=== PATIENT | male | born 1995 | race Caucasian/White ===

== ENCOUNTER 2019-11-14 14:59 | Inpatient (IN) | payer OTHER ==
[2019-11-14 15:40] VITALS: BMI 22.4
--- NOTE | 2019-11-14 16:52 | HP ---
COWS - Scale Resting Pulse: 0= [place] 80 or Below Sweatin= Chills/Flushing Restless Observation: 1= Difficult to Sit Still Pupil Size: 0= Normal to Room Light Bone or Joint Aches: 1= Mild Discomfort Runny Nose/ Eye Tearin= Nasal Congestion GI Upset > 30mins: 3= Vomiting/Diarrhea Tremor Observation: 1= Tremor Maud, Not Seen Yawning Observation: 1= 1-2x During Session Anxiety or Irritability: 2=Irritable/Anxious Goose Flesh Skin: 3=Piloerection COWS Score: 14 CIWA Score - Admission Criteria OASAS Guidelines: Admission for Medically Managed Detox: Requires at least one of the followin. CIWA greater than 12 2. Seizures within the past 24 hours 3. Delirium tremens within the past 24 hours 4. Hallucinations within the past 24 hours 5. Acute intervention needed for co occurring medical disorder 6. Acute intervention needed for co occurring psychiatric disorder 7. Severe withdrawal that cannot be handled at a lower level of care (continued vomiting, continued diarrhea, abnormal vital signs) requiring intravenous medication and/or fluids 8. Admitting History and Physical - Admission Chief Complaint: Withdrawal symptoms History Source: Patient Limitations to Obtaining History: No Limitations - Smoking History Smoking history: Current every day smoker Have you smoked in the past 12 months: Yes Aproximately how many cigarettes per day: 20 - Alcohol/Substance Use Hx Alcohol Use: No History of Substance Use: reports: Cocaine, Heroin - Social History Usual Living Arrangement: Yes: With Significant Other Do you think of yourself as: Straight/Heterosexual ADL: Independent Occupation: Currently unemployed. History of Recent Travel: No Admission [facility] Chief Complaint: Withdrawal symptoms Allergies/Adverse Reactions: Allergies Allergy/AdvReac Type Severity Reaction Status Date / Time No Known Allergies Allergy Verified 11/14/19 15:37 History of Present Illness: 24 y.o. with an extensive history of heroin and cocaine dependence is here seeking detox services. He reported he last completed detox at [facility] 1 year ago. Longest period period of illicit drug abstinence has been 2 years. Client reports he relapsed 1 year ago. Exam Limitations: No Limitations - Ebola screening Have you traveled outside of the country in the last 21 days: No Have you had contact with anyone from an Ebola affected area: No Do you have a fever: No - Review of Systems Constitutional: Changes in sleep, Unintentional Wgt. Loss EENT: reports: Tearing Respiratory: reports: No Symptoms reported Cardiac: reports: No Symptoms Reported GI: reports: Diarrhea, Nausea, Abdominal cramping : reports: No Symptoms Reported Musculoskeletal: reports: No Symptoms Reported Integumentary: reports: Bruising Neuro: reports: No Symptoms reported Endocrine: reports: No Symptoms Reported Hematology: reports: No Symptoms Reported Psychiatric: reports: Orientated x3, other (H/o PTSD) Other Systems: Reviewed and Negative Patient History - Patient Medical History Hx Anemia: No Hx Asthma: No Hx Chronic Obstructive Pulmonary Disease (COPD): No Hx Cancer: No Hx Cardiac Disorders: No Hx Congestive Heart Failure: No Hx Hypertension: No Hx Hypercholesterolemia: No Hx Pacemaker: No HX Cerebrovascular Accident: No Hx Seizures: No Hx Dementia: No Hx Diabetes: No Hx Gastrointestinal Disorders: No Hx Liver Disease: Yes (HCV (UNTREATED)) Hx Genitourinary Disorders: No Hx Sexually Transmitted Disorders: Yes (Chlamydia (treated)) Hx Renal Disease (ESRD): No Hx Thyroid Disease: No Hx Human Immunodeficiency Virus (HIV): No Hx Hepatitis C: Yes (NO [place] REQUIRED ) Hx Depression: No Hx Suicide Attempt: No Hx Bipolar Disorder: No Hx Schizophrenia: No Other Medical History: PTSD - Patient Surgical History Past Surgical History: Yes Hx Orthopedic Surgery: Yes (RIGHT ANKLE SX 05/2019) Anesthesia Reaction: No - PPD History Previous Implant?: Yes Documented Results: Negative w/o proof PPD to be Administered?: Yes - Reproductive History Patient is a Female of Child Bearing Age (11 -55 yrs old): No - Smoking Cessation Smoking history: Current every day smoker Have you smoked in the past 12 months: Yes Aproximately how many cigarettes per day: 20 Initiated information on smoking cessation: Yes 'Breaking Loose' booklet given: 11/14/19 - Substance & Tx. History Hx Alcohol Use: No Hx Substance Use: Yes Substance Use Type: Cocaine, Heroin Hx Substance Use Treatment: Yes ([facility] 1 YEAR AGO) - Substances abused Heroin Substance route: Injection Frequency: Daily Amount used: 6 BAGS Age of first use: 15 Date of last use: 11/13/19 Cocaine Substance route: Inhalation Frequency: Daily Amount used: $200 Age of first use: 15 Date of last use: 11/13/19 Admission Physical Exam [facility] - Vital Signs Vital Signs: Vital Signs - 24 hr 11/14/19 15:34 Temperature 97.3 F L Pulse Rate 58 L Respiratory 18 Rate Blood Pressure 125/69 - Physical General Appearance: Yes: Sweating, Anxious HEENTM: Yes: Hearing grossly Normal, Normocephalic, Normal Voice Respiratory: Yes: Chest Non-Tender, Lungs Clear, Normal Breath Sounds, No Respiratory Distress, No Accessory Muscle Use Neck: Yes: Within Normal Limits Breast: Yes: Breast Exam Deferred Cardiology: Yes: Regular Rhythm Abdominal: Yes: Non Tender, Flat Genitourinary: Yes: Other (No complaints reported.) Back: Yes: Normal Inspection Musculoskeletal: Yes: full range of Motion, Gait Steady, Pelvis Stable Extremities: Yes: Normal Capillary Refill, Normal Inspection, Non-Tender Neurological: Yes: Alert, Normal Mood/Affect, Normal Response Integumentary: Yes: Normal Color, Dry, Warm, Track Varma Lymphatic: Yes: Within Normal Limits - Diagnostic (1) Opioid dependence, uncomplicated Current Visit: Yes Status: Chronic (2) IVDU (intravenous drug user) Current Visit: Yes Status: Chronic (3) Nicotine dependence Current Visit: Yes Status: Chronic [facility] Level of Care: Medically Managed Detox Regimen/Protocol: Methadone Breathalyzer - Breathalyzer Breathalyzer: 0 Inpatient Rehab Admission - Rehab Decision to Admit Inpatient rehab admission?: No
[2019-11-14] MEDS ORDERED: MAGNESIUM CITRATE 300 ML BOTTLE PO PRN (16:58)
[2019-11-14] MEDS ORDERED: MENTHOL/PHENOL 1 EACH UD MM PRN (16:58)
[2019-11-14] MEDS ORDERED: ONDANSETRON *ODT* 4 MG TABLET SL PRN (16:58)
[2019-11-14] MEDS ORDERED: NICOTINE POLACRILEX 2 MG GUM BUC PRN (16:58)
[2019-11-14] MEDS ORDERED: MAGNESIUM HYDROX 2400MG/30ML ORAL SUSPENSION 30 ML CUP PO PRN (16:58)
[2019-11-14] MEDS ORDERED: NALOXONE HCL 0.4 MG/ML VIAL IM PRN (16:58)
[2019-11-14] MEDS ORDERED: MAG HYDROX/AL HYDROX/SIMETH 30 ML UNIT-DOSE CUP PO PRN (16:58)
[2019-11-14] MEDS ORDERED: ACETAMINOPHEN 325 MG TABLET (FP) PO PRN (16:58)
[2019-11-14] MEDS: hydrOXYzine PAMOATE 25 MG CAPSULE (FP) PO PRN (17:58)
[2019-11-14] MEDS: clonazePAM 0.5 MG TABLET PO PRN (17:58)
[2019-11-14] MEDS ORDERED: METHADONE HCL 10 MG TABLET (FOR DETOX USE ONLY) PO ONE (18:00)
[2019-11-14] MEDS ORDERED: guaiFENesin 200 MG/10 ML 10 ML UNIT-DOSE CUPS PO PRN (20:23)
[2019-11-14] MEDS: BACITRACIN 15 GM TUBE TOPICAL OINTMENT TP SCH (22:47)
[2019-11-14] MEDS: THIAMINE HCL 100 MG TABLET (FP) PO SCH (22:47)
[2019-11-14] MEDS: MELATONIN 5 MG TABLETS PO PRN (22:48)
[2019-11-14] MEDS: METHOCARBAMOL 500 MG TABLET PO PRN (22:48)
[2019-11-15] MEDS ORDERED: METHADONE HCL 10 MG TABLET (FOR DETOX USE ONLY) ONE (09:02)
[2019-11-15] MEDS ORDERED: METHADONE HCL 5 MG TABLET (FOR DETOX USE ONLY) ONE (09:03)
--- NOTE | 2019-11-15 09:22 | PN ---
[facility] COWS - Scale Resting Pulse: 0= [place] 80 or Below Sweatin= Chills/Flushing Restless Observation: 0= Sits Still Pupil Size: 1= Pupils >than Normal Bone or Joint Aches: 1= Mild Discomfort Runny Nose/ Eye Tearin= Nasal Congestion GI Upset > 30mins: 2= Nausea/Diarrhea Tremor Observation of Outstretched Hands: 2= Slight Tremor Visible Yawning Observation: 0= None Anxiety or Irritability: 1=Feels Anxious/Irritable Goose Flesh Skin: 3=Piloerection COWS Score: 12 [facility] Progress Note (SOAP) Subjective: 24 years old male admitted on 11/14/19 for opiate withdrawal sx management treating with methadone detox regimen resting on bed feeling tired limited conversation with staff Objective: 11/15/19 09:22 Vital Signs Temperature 96.5 F L 11/15/19 09:15 Pulse Rate 57 L 11/15/19 09:15 Respiratory Rate 18 11/15/19 09:15 Blood Pressure 105/67 11/15/19 09:15 O2 Sat by Pulse Oximetry (%) 11/15/19 09:22 lab pending Assessment: 11/15/19 09:22 opiate withdrawal Plan: methadone regimen
[2019-11-15] MEDS ORDERED: METHADONE (DETOX) 20 MG, METHADONE (DETOX) 5 MG PO ONE (10:00)
[2019-11-15] MEDS: PRENATAL VITAMINS W/ FOLIC ACID TABLET (FP) PO SCH (10:42)
[2019-11-15] MEDS: clonazePAM 0.5 MG TABLET PO PRN ×3 (10:43→23:29)
[2019-11-15] MEDS: BACITRACIN 15 GM TUBE TOPICAL OINTMENT TP SCH ×2 (10:43→22:18)
[2019-11-15 11:03] LABS: HEMATOCRIT 38.9 % (35.4-49); HEMOGLOBIN 13.1 GM/dL (11.7-16.9); MCH 29.9 pg (25.7-33.7); MCHC 33.7 g/dl (32.0-35.9); MEAN CELL VOLUME 88.7 fl (80-96); PLATELET COUNT 265 K/MM3 (134-434); RBC 4.38 M/mm3 (4.00-5.60)
[2019-11-15 11:04] LABS: ALBUMIN 3.1 g/dl (3.4-5.0); BILIRUBIN,TOTAL 0.2 mg/dL (0.2-1); BLOOD UREA NITROGEN 11.9 mg/dL (7-18); CALCIUM 8.8 mg/dL (8.5-10.1); CREATININE 0.7 mg/dL (0.55-1.3); POTASSIUM 4.2 mmol/L (3.5-5.1); TOT PROT 6.3 g/dl (6.4-8.2)
[2019-11-15] MEDS: hydrOXYzine PAMOATE 25 MG CAPSULE (FP) PO PRN ×2 (12:31→22:20)
[2019-11-15] MEDS: METHOCARBAMOL 500 MG TABLET PO PRN ×2 (12:31→22:20)
[2019-11-15] MEDS: BISMUTH SUBSALICYLATE 524 MG/30 ML UD PO PRN (12:32)
[2019-11-15] MEDS: IBUPROFEN 400 MG TABLET (FP) PO PRN (21:13)
[2019-11-15] MEDS: THIAMINE HCL 100 MG TABLET (FP) PO SCH (22:18)
[2019-11-15] MEDS: ACETAMINOPHEN 325 MG TABLET (FP) PO PRN (22:19)
[2019-11-15] MEDS: MELATONIN 5 MG TABLETS PO PRN (22:20)
[2019-11-16] MEDS: IBUPROFEN 400 MG TABLET (FP) PO PRN ×2 (03:47→10:58)
--- NOTE | 2019-11-16 05:13 | EKG ---
Test Reason : Blood Pressure : / mmHG Vent. Rate : 053 BPM Atrial Rate : 053 BPM P-R Int : 136 ms QRS Dur : 100 ms QT Int : 466 ms P-R-T Axes : 062 075 055 degrees QTc Int : 437 ms SINUS BRADYCARDIA MINIMAL VOLTAGE CRITERIA FOR LVH, MAY BE NORMAL VARIANT BORDERLINE ECG NO PREVIOUS ECGS AVAILABLE Confirmed by BEAR ARRIOLA MD ([id number]) on 11/16/2019 5:13:25 AM Referred By: CARO Confirmed By:BEAR ARRIOLA MD
[2019-11-16] MEDS ORDERED: METHADONE HCL 10 MG TABLET (FOR DETOX USE ONLY) PO ONE (10:00)
[2019-11-16] MEDS: clonazePAM 0.5 MG TABLET PO PRN ×2 (10:58→17:23)
[2019-11-16] MEDS: METHOCARBAMOL 500 MG TABLET PO PRN ×2 (10:58→22:33)
[2019-11-16] MEDS: PRENATAL VITAMINS W/ FOLIC ACID TABLET (FP) PO SCH (10:58)
[2019-11-16] MEDS: BACITRACIN 15 GM TUBE TOPICAL OINTMENT TP SCH ×2 (11:00→22:32)
--- NOTE | 2019-11-16 12:16 | PN ---
[facility] COWS - Scale Resting Pulse: 0= [place] 80 or Below Sweatin= Chills/Flushing Restless Observation: 0= Sits Still Pupil Size: 1= Pupils >than Normal Bone or Joint Aches: 1= Mild Discomfort Runny Nose/ Eye Tearin= Nasal Congestion GI Upset > 30mins: 2= Nausea/Diarrhea (reports gerd discontinue motrin begin pepcid) Tremor Observation of Outstretched Hands: 1= Tremor Vincent, Not Seen Yawning Observation: 1= 1-2x During Session Anxiety or Irritability: 2=Irritable/Anxious Goose Flesh Skin: 0=Smooth Skin COWS Score: 10 [facility] Progress Note (SOAP) Subjective: 24 years old male admitted on 11/14/19 for opiate withdrawal sx management treating with methadone detox regimen reports long history of gerd discontinue motrin begin pepcid 20 mg po bid feeling tired today encourage to attend groups and meetings Objective: 11/16/19 12:16 Vital Signs Temperature 97.1 F L 11/16/19 09:18 Pulse Rate 66 11/16/19 09:18 Respiratory Rate 18 11/16/19 09:18 Blood Pressure 131/63 11/16/19 09:18 O2 Sat by Pulse Oximetry (%) Laboratory Last Values WBC 7.0 K/mm3 (4.0-10.0) 11/15/19 07:50 RBC 4.38 M/mm3 (4.00-5.60) 11/15/19 07:50 Hgb 13.1 GM/dL (11.7-16.9) 11/15/19 07:50 Hct 38.9 % (35.4-49) 11/15/19 07:50 MCV 88.7 fl (80-96) 11/15/19 07:50 MCH 29.9 pg (25.7-33.7) 11/15/19 07:50 MCHC 33.7 g/dl (32.0-35.9) 11/15/19 07:50 RDW 13.0 % (11.9-15.9) 11/15/19 07:50 Plt Count 265 K/MM3 (134-434) 11/15/19 07:50 MPV 10.0 fl (7.5-11.1) 11/15/19 07:50 Sodium 139 mmol/L (136-145) 11/15/19 07:50 Potassium 4.2 mmol/L (3.5-5.1) 11/15/19 07:50 Chloride 105 mmol/L (98-107) 11/15/19 07:50 Carbon Dioxide 31 mmol/L (21-32) 11/15/19 07:50 Anion Gap 4 MMOL/L (8-16) L 11/15/19 07:50 BUN 11.9 mg/dL (7-18) 11/15/19 07:50 Creatinine 0.7 mg/dL (0.55-1.3) 11/15/19 07:50 Est GFR (CKD-EPI)AfAm 152.02 11/15/19 07:50 Est GFR (CKD-EPI)NonAf 131.16 11/15/19 07:50 Random Glucose 81 mg/dL (74-106) 11/15/19 07:50 Calcium 8.8 mg/dL (8.5-10.1) 11/15/19 07:50 Total Bilirubin 0.2 mg/dL (0.2-1) 11/15/19 07:50 AST 19 U/L (15-37) 11/15/19 07:50 ALT 20 U/L (13-61) 11/15/19 07:50 Alkaline Phosphatase 72 U/L (45-117) 11/15/19 07:50 Total Protein 6.3 g/dl (6.4-8.2) L 11/15/19 07:50 Albumin 3.1 g/dl (3.4-5.0) L 11/15/19 07:50 RPR Titer Nonreactive (NONREACTIVE) 11/15/19 07:50 lab noted Assessment: 11/16/19 12:16 opiate withdrawal Plan: methadone regimen
[2019-11-16] MEDS: FAMOTIDINE 20 MG TABLET PO SCH ×2 (14:24→22:32)
[2019-11-16] MEDS: cloNIDine HCL 0.1 MG TABLET PO PRN ×2 (17:25→22:33)
[2019-11-16] MEDS: BISMUTH SUBSALICYLATE 524 MG/30 ML UD PO PRN (17:26)
[2019-11-16] MEDS: MELATONIN 5 MG TABLETS PO PRN (22:33)
[2019-11-16] MEDS: THIAMINE HCL 100 MG TABLET (FP) PO SCH (22:33)
[2019-11-17] MEDS: clonazePAM 0.5 MG TABLET PO PRN ×4 (02:56→23:09)
[2019-11-17] MEDS ORDERED: METHADONE HCL 10 MG TABLET (FOR DETOX USE ONLY) ONE (08:50)
[2019-11-17] MEDS ORDERED: METHADONE HCL 5 MG TABLET (FOR DETOX USE ONLY) ONE (08:50)
[2019-11-17] MEDS ORDERED: METHADONE (DETOX) 10 MG, METHADONE (DETOX) 5 MG PO ONE (10:00)
[2019-11-17] MEDS: FAMOTIDINE 20 MG TABLET PO SCH ×2 (10:07→21:46)
[2019-11-17] MEDS: PRENATAL VITAMINS W/ FOLIC ACID TABLET (FP) PO SCH (10:07)
[2019-11-17] MEDS: BACITRACIN 15 GM TUBE TOPICAL OINTMENT TP SCH ×2 (10:08→21:55)
--- NOTE | 2019-11-17 11:25 | PN ---
BHS COWS - Scale Resting Pulse: 0= [place] 80 or Below Sweatin= Chills/Flushing Restless Observation: 1= Difficult to Sit Still Pupil Size: 0= Normal to Room Light Bone or Joint Aches: 2= Severe Diffuse Aches Runny Nose/ Eye Tearin= None GI Upset > 30mins: 0= None Tremor Observation of Outstretched Hands: 0= None Yawning Observation: 1= 1-2x During Session Anxiety or Irritability: 2=Irritable/Anxious Goose Flesh Skin: 0=Smooth Skin COWS Score: 7 [facility] Progress Note (SOAP) Subjective: c/o anxiety, irritability, mild sweats, and muscle aches. Objective: 11/17/19 11:23 Vital Signs 11/17/19 11/17/19 11/17/19 03:30 06:12 09:23 Temperature 97 F L 97.1 F L Pulse Rate 60 74 Respiratory 16 18 18 Rate Blood Pressure 116/60 136/75 Laboratory Last Values WBC 7.0 K/mm3 (4.0-10.0) 11/15/19 07:50 RBC 4.38 M/mm3 (4.00-5.60) 11/15/19 07:50 Hgb 13.1 GM/dL (11.7-16.9) 11/15/19 07:50 Hct 38.9 % (35.4-49) 11/15/19 07:50 MCV 88.7 fl (80-96) 11/15/19 07:50 MCH 29.9 pg (25.7-33.7) 11/15/19 07:50 MCHC 33.7 g/dl (32.0-35.9) 11/15/19 07:50 RDW 13.0 % (11.9-15.9) 11/15/19 07:50 Plt Count 265 K/MM3 (134-434) 11/15/19 07:50 MPV 10.0 fl (7.5-11.1) 11/15/19 07:50 Sodium 139 mmol/L (136-145) 11/15/19 07:50 Potassium 4.2 mmol/L (3.5-5.1) 11/15/19 07:50 Chloride 105 mmol/L (98-107) 11/15/19 07:50 Carbon Dioxide 31 mmol/L (21-32) 11/15/19 07:50 Anion Gap 4 MMOL/L (8-16) L 11/15/19 07:50 BUN 11.9 mg/dL (7-18) 11/15/19 07:50 Creatinine 0.7 mg/dL (0.55-1.3) 11/15/19 07:50 Est GFR (CKD-EPI)AfAm 152.02 11/15/19 07:50 Est GFR (CKD-EPI)NonAf 131.16 11/15/19 07:50 Random Glucose 81 mg/dL (74-106) 11/15/19 07:50 Calcium 8.8 mg/dL (8.5-10.1) 11/15/19 07:50 Total Bilirubin 0.2 mg/dL (0.2-1) 11/15/19 07:50 AST 19 U/L (15-37) 11/15/19 07:50 ALT 20 U/L (13-61) 11/15/19 07:50 Alkaline Phosphatase 72 U/L (45-117) 11/15/19 07:50 Total Protein 6.3 g/dl (6.4-8.2) L 11/15/19 07:50 Albumin 3.1 g/dl (3.4-5.0) L 11/15/19 07:50 RPR Titer Nonreactive (NONREACTIVE) 11/15/19 07:50 Labs noted. Assessment: 11/17/19 11:23 AOX3, in no acute respiratory distress. Full ROM, ambulating in the unit. Withdrawal symptoms. Plan: continue detox.
[2019-11-17] MEDS: METHOCARBAMOL 500 MG TABLET PO PRN ×2 (13:53→21:44)
[2019-11-17] MEDS: hydrOXYzine PAMOATE 25 MG CAPSULE (FP) PO PRN ×2 (13:53→21:46)
[2019-11-17] MEDS: ACETAMINOPHEN 325 MG TABLET (FP) PO PRN (17:23)
[2019-11-17] MEDS: THIAMINE HCL 100 MG TABLET (FP) PO SCH (21:55)
[2019-11-18] MEDS: METHOCARBAMOL 500 MG TABLET PO PRN (09:08)
[2019-11-18] MEDS: clonazePAM 0.5 MG TABLET PO PRN ×2 (09:08→15:06)
[2019-11-18] MEDS ORDERED: METHADONE HCL 10 MG TABLET (FOR DETOX USE ONLY) PO ONE (10:00)
[2019-11-18] MEDS: BACITRACIN 15 GM TUBE TOPICAL OINTMENT TP SCH (10:29)
[2019-11-18] MEDS: FAMOTIDINE 20 MG TABLET PO SCH (10:29)
[2019-11-18] MEDS: PRENATAL VITAMINS W/ FOLIC ACID TABLET (FP) PO SCH (10:29)
--- NOTE | 2019-11-18 10:29 | PN ---
S COWS - Scale Resting Pulse: 0= [place] 80 or Below Sweatin= Chills/Flushing Restless Observation: 0= Sits Still Pupil Size: 0= Normal to Room Light Bone or Joint Aches: 0= None Runny Nose/ Eye Tearin= None GI Upset > 30mins: 0= None Tremor Observation of Outstretched Hands: 0= None Yawning Observation: 0= None Anxiety or Irritability: 2=Irritable/Anxious Goose Flesh Skin: 0=Smooth Skin COWS Score: 3 S Progress Note (SOAP) Subjective: c/o mild withdrawal symptoms. Objective: 11/18/19 10:28 Vital Signs 11/18/19 11/18/19 11/18/19 03:30 06:41 09:02 Temperature 97.1 F L 97.0 F L Pulse Rate 51 L 68 Respiratory 18 18 18 Rate Blood Pressure 120/62 115/74 Laboratory Last Values WBC 7.0 K/mm3 (4.0-10.0) 11/15/19 07:50 RBC 4.38 M/mm3 (4.00-5.60) 11/15/19 07:50 Hgb 13.1 GM/dL (11.7-16.9) 11/15/19 07:50 Hct 38.9 % (35.4-49) 11/15/19 07:50 MCV 88.7 fl (80-96) 11/15/19 07:50 MCH 29.9 pg (25.7-33.7) 11/15/19 07:50 MCHC 33.7 g/dl (32.0-35.9) 11/15/19 07:50 RDW 13.0 % (11.9-15.9) 11/15/19 07:50 Plt Count 265 K/MM3 (134-434) 11/15/19 07:50 MPV 10.0 fl (7.5-11.1) 11/15/19 07:50 Sodium 139 mmol/L (136-145) 11/15/19 07:50 Potassium 4.2 mmol/L (3.5-5.1) 11/15/19 07:50 Chloride 105 mmol/L (98-107) 11/15/19 07:50 Carbon Dioxide 31 mmol/L (21-32) 11/15/19 07:50 Anion Gap 4 MMOL/L (8-16) L 11/15/19 07:50 BUN 11.9 mg/dL (7-18) 11/15/19 07:50 Creatinine 0.7 mg/dL (0.55-1.3) 11/15/19 07:50 Est GFR (CKD-EPI)AfAm 152.02 11/15/19 07:50 Est GFR (CKD-EPI)NonAf 131.16 11/15/19 07:50 Random Glucose 81 mg/dL (74-106) 11/15/19 07:50 Calcium 8.8 mg/dL (8.5-10.1) 11/15/19 07:50 Total Bilirubin 0.2 mg/dL (0.2-1) 11/15/19 07:50 AST 19 U/L (15-37) 11/15/19 07:50 ALT 20 U/L (13-61) 11/15/19 07:50 Alkaline Phosphatase 72 U/L (45-117) 11/15/19 07:50 Total Protein 6.3 g/dl (6.4-8.2) L 11/15/19 07:50 Albumin 3.1 g/dl (3.4-5.0) L 11/15/19 07:50 RPR Titer Nonreactive (NONREACTIVE) 11/15/19 07:50 Labs noted. Assessment: 11/18/19 10:28 AOx3, in no acute respiratory distress. Full rom, ambulating in the unit. Mild Withdrawal symptoms. For d/c tomorrow. Plan: continue detox. D/C in AM.
[2019-11-18 13:29] VITALS: BP 119/65; PULSE 62; TEMP 97.6
--- NOTE | 2019-11-18 15:25 | DS ---
[facility] Detox Discharge Summary Admission Date: 11/14/19 Discharge Date: 11/18/19 (Pt left AMA) - History Present History: Cocaine Dependence, Opioid Dependence Additional Comments: Pt left AMA. Pt did not complete the detox protocol. Pt states, "i just have to leave". Pt still with mild withdrawal symptoms. An attempt to let pt stay and complete the detox protocol failed. Pt is encouraged to follow-up with an outpatient CD program and also to follow-up with his pmd but pt was adamant about the information given. Pt is alert and oriented x3 and in no acute respiratory distress. Pertinent Past History: h/o heroin and cocaine use disorder. - Physical Exam Results Vital Signs: Vital Signs Temperature 97.6 F 11/18/19 13:28 Pulse Rate 62 11/18/19 13:28 Respiratory Rate 18 11/18/19 13:28 Blood Pressure 119/65 11/18/19 13:28 O2 Sat by Pulse Oximetry (%) Vital Signs 11/18/19 11/18/19 09:02 13:28 Temperature 97.0 F L 97.6 F Pulse Rate 68 62 Respiratory 18 18 Rate Blood Pressure 115/74 119/65 Laboratory Last Values WBC 7.0 K/mm3 (4.0-10.0) 11/15/19 07:50 RBC 4.38 M/mm3 (4.00-5.60) 11/15/19 07:50 Hgb 13.1 GM/dL (11.7-16.9) 11/15/19 07:50 Hct 38.9 % (35.4-49) 11/15/19 07:50 MCV 88.7 fl (80-96) 11/15/19 07:50 MCH 29.9 pg (25.7-33.7) 11/15/19 07:50 MCHC 33.7 g/dl (32.0-35.9) 11/15/19 07:50 RDW 13.0 % (11.9-15.9) 11/15/19 07:50 Plt Count 265 K/MM3 (134-434) 11/15/19 07:50 MPV 10.0 fl (7.5-11.1) 11/15/19 07:50 Sodium 139 mmol/L (136-145) 11/15/19 07:50 Potassium 4.2 mmol/L (3.5-5.1) 11/15/19 07:50 Chloride 105 mmol/L (98-107) 11/15/19 07:50 Carbon Dioxide 31 mmol/L (21-32) 11/15/19 07:50 Anion Gap 4 MMOL/L (8-16) L 11/15/19 07:50 BUN 11.9 mg/dL (7-18) 11/15/19 07:50 Creatinine 0.7 mg/dL (0.55-1.3) 11/15/19 07:50 Est GFR (CKD-EPI)AfAm 152.02 11/15/19 07:50 Est GFR (CKD-EPI)NonAf 131.16 11/15/19 07:50 Random Glucose 81 mg/dL (74-106) 11/15/19 07:50 Calcium 8.8 mg/dL (8.5-10.1) 11/15/19 07:50 Total Bilirubin 0.2 mg/dL (0.2-1) 11/15/19 07:50 AST 19 U/L (15-37) 11/15/19 07:50 ALT 20 U/L (13-61) 11/15/19 07:50 Alkaline Phosphatase 72 U/L (45-117) 11/15/19 07:50 Total Protein 6.3 g/dl (6.4-8.2) L 11/15/19 07:50 Albumin 3.1 g/dl (3.4-5.0) L 11/15/19 07:50 RPR Titer Nonreactive (NONREACTIVE) 11/15/19 07:50 Labs noted. Pertinent Admission Physical Exam Findings: withdrawal symptoms. - Treatment Hospital Course: Detox Protocol Followed, Detoxed Safely, Responded well - Medication Discharge Medications: Ambulatory Orders Naloxone HCl [Narcan] 4 mg NS ASDIR PRN #1 spray 11/15/19 - Diagnosis (1) IVDU (intravenous drug user) Current Visit: Yes Status: Chronic (2) Nicotine dependence Current Visit: Yes Status: Chronic (3) Opioid dependence, uncomplicated Current Visit: Yes Status: Chronic - AMA Did Patient Leave Against Medical Advice: Yes
[2019-11-19] MEDS ORDERED: METHADONE HCL 5 MG TABLET (FOR DETOX USE ONLY) PO ONE (06:00)
== END 2019-11-18 15:47 | disposition home or self-care (01) | DRG 773 ==
LOC: YASAS 14:59 → Y3N 17:24
PROVIDERS: ADMIT Allergy & Immunology; ATTEND Allergy & Immunology
PROC: HZ2ZZZZ Detoxification Services for Substance Abuse Treatment (ICD-10-PCS; principal; 2019-11-14)
DX: F11.23 Opioid dependence with withdrawal (principal); F17.210 Nicotine dependence, cigarettes, uncomplicated; Z87.438 Personal history of other diseases of male genital organs
CPT/HCPCS: 36415; 80053; 85027; 86593; 93005; 93010; J0735

== ENCOUNTER 2019-12-11 09:06 | Inpatient (IN) | payer OTHER ==
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
[2019-12-11 09:33] VITALS: BMI 21.9
[2019-12-11] MEDS ORDERED: cloNIDine HCL 0.1 MG TABLET PO PRN (10:02)
[2019-12-11] MEDS ORDERED: METHOCARBAMOL 500 MG TABLET PO PRN (10:02)
[2019-12-11] MEDS ORDERED: IBUPROFEN 400 MG TABLET (FP) PO PRN (10:02)
[2019-12-11] MEDS ORDERED: ACETAMINOPHEN 325 MG TABLET (FP) PO PRN ×2 (10:02)
[2019-12-11] MEDS ORDERED: MENTHOL/PHENOL 1 EACH UD MM PRN (10:02)
[2019-12-11] MEDS ORDERED: MAGNESIUM CITRATE 300 ML BOTTLE PO PRN (10:02)
[2019-12-11] MEDS ORDERED: MAGNESIUM HYDROX 2400MG/30ML ORAL SUSPENSION 30 ML CUP PO PRN (10:02)
[2019-12-11] MEDS ORDERED: BISMUTH SUBSALICYLATE 262 MG/15 ML BTL PO PRN (10:02)
[2019-12-11] MEDS ORDERED: MAG HYDROX/AL HYDROX/SIMETH 30 ML UNIT-DOSE CUP PO PRN (10:02)
[2019-12-11] MEDS ORDERED: METHADONE HCL 10 MG TABLET (FOR DETOX USE ONLY) PO ONE (11:10)
[2019-12-11] MEDS ORDERED: ONDANSETRON *ODT* 4 MG TABLET SL ONE (12:24)
--- NOTE | 2019-12-11 12:25 | PN ---
S Progress Note Note: 24 years old male admitted on 12/11/19 for opiate withdrawal sx management treating with methadone detox regimen c/o nausea zofran 4mg sl x 1 pepcid 20 mg po bid
[2019-12-11] MEDS: FAMOTIDINE 20 MG TABLET PO SCH ×2 (13:56→22:10)
[2019-12-11] MEDS: MELATONIN 5 MG TABLETS PO PRN (22:10)
[2019-12-11] MEDS: THIAMINE HCL 100 MG TABLET (FP) PO SCH (22:10)
[2019-12-11] MEDS: hydrOXYzine PAMOATE 25 MG CAPSULE (FP) PO PRN (22:10)
[2019-12-12] MEDS ORDERED: METHADONE HCL 10 MG TABLET (FOR DETOX USE ONLY) ONE (09:06)
[2019-12-12] MEDS ORDERED: METHADONE HCL 5 MG TABLET (FOR DETOX USE ONLY) ONE (09:07)
[2019-12-12 09:31] LABS: HEMATOCRIT 38.6 % (35.4-49); HEMOGLOBIN 13.1 GM/dL (11.7-16.9); MCH 29.6 pg (25.7-33.7); MCHC 33.9 g/dl (32.0-35.9); MEAN CELL VOLUME 87.2 fl (80-96); MEAN PLT VOLUME 9.4 fl (7.5-11.1); PLATELET COUNT 197 K/MM3 (134-434); RBC 4.42 M/mm3 (4.00-5.60); RDW 13.3 % (11.9-15.9); WHITE BLOOD COUNT 5.7 K/mm3 (4.0-10.0)
[2019-12-12] MEDS ORDERED: METHADONE (DETOX) 20 MG, METHADONE (DETOX) 5 MG PO ONE (10:00)
[2019-12-12] MEDS: NICOTINE 14 MG/24 HOURS TOPICAL PATCH TD SCH (10:28)
[2019-12-12] MEDS: FAMOTIDINE 20 MG TABLET PO SCH ×2 (10:28→22:07)
[2019-12-12] MEDS: PRENATAL VITAMINS W/ FOLIC ACID TABLET (FP) PO SCH (10:28)
[2019-12-12 11:01] LABS: ALBUMIN 3.3 g/dl (3.4-5.0); BILIRUBIN,TOTAL 0.3 mg/dL (0.2-1); BLOOD UREA NITROGEN 14.2 mg/dL (7-18); CALCIUM 8.4 mg/dL (8.5-10.1); CREATININE 0.7 mg/dL (0.55-1.3); POTASSIUM 4.2 mmol/L (3.5-5.1); TOT PROT 6.5 g/dl (6.4-8.2)
--- NOTE | 2019-12-12 11:06 | PN ---
BHS COWS - Scale Resting Pulse: 0= [place] 80 or Below Sweatin= Chills/Flushing Restless Observation: 0= Sits Still Pupil Size: 1= Pupils >than Normal Bone or Joint Aches: 1= Mild Discomfort Runny Nose/ Eye Tearin= Nasal Congestion GI Upset > 30mins: 2= Nausea/Diarrhea Tremor Observation of Outstretched Hands: 1= Tremor [place], Not Seen Yawning Observation: 1= 1-2x During Session Anxiety or Irritability: 2=Irritable/Anxious Goose Flesh Skin: 3=Piloerection COWS Score: 13 BHS Progress Note (SOAP) Subjective: 24 years old male admitted on 12/11/19 for opiate withdrawal sx management treating with methadone detox regiment feeling tired resting in bed prefers to stay in bed today limited conversation with staff Objective: 12/12/19 11:04 Vital Signs Temperature 97.1 F L 12/12/19 09:00 Pulse Rate 56 L 12/12/19 09:00 Respiratory Rate 16 12/12/19 09:00 Blood Pressure 96/57 L 12/12/19 09:00 O2 Sat by Pulse Oximetry (%) Laboratory Last Values WBC 5.7 K/mm3 (4.0-10.0) 12/12/19 07:45 RBC 4.42 M/mm3 (4.00-5.60) 12/12/19 07:45 Hgb 13.1 GM/dL (11.7-16.9) 12/12/19 07:45 Hct 38.6 % (35.4-49) 12/12/19 07:45 MCV 87.2 fl (80-96) 12/12/19 07:45 MCH 29.6 pg (25.7-33.7) 12/12/19 07:45 MCHC 33.9 g/dl (32.0-35.9) 12/12/19 07:45 RDW 13.3 % (11.9-15.9) 12/12/19 07:45 Plt Count 197 K/MM3 (134-434) D 12/12/19 07:45 MPV 9.4 fl (7.5-11.1) 12/12/19 07:45 Sodium 140 mmol/L (136-145) 12/12/19 07:45 Potassium 4.2 mmol/L (3.5-5.1) 12/12/19 07:45 Chloride 106 mmol/L (98-107) 12/12/19 07:45 Carbon Dioxide 29 mmol/L (21-32) 12/12/19 07:45 Anion Gap 5 MMOL/L (8-16) L 12/12/19 07:45 BUN 14.2 mg/dL (7-18) 12/12/19 07:45 Creatinine 0.7 mg/dL (0.55-1.3) 12/12/19 07:45 Est GFR (CKD-EPI)AfAm 152.02 12/12/19 07:45 Est GFR (CKD-EPI)NonAf 131.16 12/12/19 07:45 Random Glucose 83 mg/dL (74-106) 12/12/19 07:45 Calcium 8.4 mg/dL (8.5-10.1) L 12/12/19 07:45 Total Bilirubin 0.3 mg/dL (0.2-1) 12/12/19 07:45 AST 22 U/L (15-37) 12/12/19 07:45 ALT 26 U/L (13-61) 12/12/19 07:45 Alkaline Phosphatase 63 U/L (45-117) 12/12/19 07:45 Total Protein 6.5 g/dl (6.4-8.2) 12/12/19 07:45 Albumin 3.3 g/dl (3.4-5.0) L 12/12/19 07:45 RPR Titer Nonreactive (NONREACTIVE) 12/12/19 07:45 lab noted Assessment: 12/12/19 11:05 opiate withdrawal Plan: methadone regiment
[2019-12-12] MEDS: THIAMINE HCL 100 MG TABLET (FP) PO SCH (22:07)
[2019-12-12] MEDS: hydrOXYzine PAMOATE 25 MG CAPSULE (FP) PO PRN (22:08)
[2019-12-12] MEDS: MELATONIN 5 MG TABLETS PO PRN (22:09)
[2019-12-13] MEDS: FAMOTIDINE 20 MG TABLET PO SCH ×2 (09:41→22:19)
[2019-12-13] MEDS: PRENATAL VITAMINS W/ FOLIC ACID TABLET (FP) PO SCH (09:41)
[2019-12-13] MEDS: NICOTINE 14 MG/24 HOURS TOPICAL PATCH TD SCH (09:42)
[2019-12-13] MEDS ORDERED: METHADONE HCL 10 MG TABLET (FOR DETOX USE ONLY) PO ONE (10:00)
--- NOTE | 2019-12-13 10:54 | PN ---
BHS COWS - Scale Resting Pulse: 0= [place] 80 or Below Sweatin= Chills/Flushing Restless Observation: 0= Sits Still Pupil Size: 1= Pupils >than Normal Bone or Joint Aches: 1= Mild Discomfort Runny Nose/ Eye Tearin= Nasal Congestion GI Upset > 30mins: 1= Stomach Cramp Tremor Observation of Outstretched Hands: 2= Slight Tremor Visible Yawning Observation: 1= 1-2x During Session Anxiety or Irritability: 2=Irritable/Anxious Goose Flesh Skin: 0=Smooth Skin COWS Score: 10 BHS Progress Note (SOAP) Subjective: 24 years old male admitted on 12/11/19 for opiate withdrawal sx management treating with methadone detox regiment feeling ok today prefers to receive nutrition supplement ensure in placed Objective: 12/13/19 10:53 Vital Signs Temperature 97.8 F 12/13/19 09:22 Pulse Rate 59 L 12/13/19 09:22 Respiratory Rate 18 12/13/19 09:22 Blood Pressure 121/73 12/13/19 09:22 O2 Sat by Pulse Oximetry (%) Laboratory Last Values WBC 5.7 K/mm3 (4.0-10.0) 12/12/19 07:45 RBC 4.42 M/mm3 (4.00-5.60) 12/12/19 07:45 Hgb 13.1 GM/dL (11.7-16.9) 12/12/19 07:45 Hct 38.6 % (35.4-49) 12/12/19 07:45 MCV 87.2 fl (80-96) 12/12/19 07:45 MCH 29.6 pg (25.7-33.7) 12/12/19 07:45 MCHC 33.9 g/dl (32.0-35.9) 12/12/19 07:45 RDW 13.3 % (11.9-15.9) 12/12/19 07:45 Plt Count 197 K/MM3 (134-434) D 12/12/19 07:45 MPV 9.4 fl (7.5-11.1) 12/12/19 07:45 Sodium 140 mmol/L (136-145) 12/12/19 07:45 Potassium 4.2 mmol/L (3.5-5.1) 12/12/19 07:45 Chloride 106 mmol/L (98-107) 12/12/19 07:45 Carbon Dioxide 29 mmol/L (21-32) 12/12/19 07:45 Anion Gap 5 MMOL/L (8-16) L 12/12/19 07:45 BUN 14.2 mg/dL (7-18) 12/12/19 07:45 Creatinine 0.7 mg/dL (0.55-1.3) 12/12/19 07:45 Est GFR (CKD-EPI)AfAm 152.02 12/12/19 07:45 Est GFR (CKD-EPI)NonAf 131.16 12/12/19 07:45 Random Glucose 83 mg/dL (74-106) 12/12/19 07:45 Calcium 8.4 mg/dL (8.5-10.1) L 12/12/19 07:45 Total Bilirubin 0.3 mg/dL (0.2-1) 12/12/19 07:45 AST 22 U/L (15-37) 12/12/19 07:45 ALT 26 U/L (13-61) 12/12/19 07:45 Alkaline Phosphatase 63 U/L (45-117) 12/12/19 07:45 Total Protein 6.5 g/dl (6.4-8.2) 12/12/19 07:45 Albumin 3.3 g/dl (3.4-5.0) L 12/12/19 07:45 RPR Titer Nonreactive (NONREACTIVE) 12/12/19 07:45 lab noted Assessment: 12/13/19 10:53 opiate withdrawal Plan: methadone regiment
[2019-12-13] MEDS: MELATONIN 5 MG TABLETS PO PRN (22:19)
[2019-12-13] MEDS: THIAMINE HCL 100 MG TABLET (FP) PO SCH (22:19)
[2019-12-14] MEDS ORDERED: METHADONE HCL 10 MG TABLET (FOR DETOX USE ONLY) ONE (09:36)
[2019-12-14] MEDS ORDERED: METHADONE HCL 5 MG TABLET (FOR DETOX USE ONLY) ONE (09:36)
[2019-12-14] MEDS ORDERED: METHADONE (DETOX) 10 MG, METHADONE (DETOX) 5 MG PO ONE (10:00)
[2019-12-14] MEDS: FAMOTIDINE 20 MG TABLET PO SCH ×2 (10:31→22:17)
[2019-12-14] MEDS: PRENATAL VITAMINS W/ FOLIC ACID TABLET (FP) PO SCH (10:31)
[2019-12-14] MEDS: NICOTINE 14 MG/24 HOURS TOPICAL PATCH TD SCH (10:31)
--- NOTE | 2019-12-14 12:27 | PN ---
BHS COWS - Scale Resting Pulse: 0= [place] 80 or Below Sweatin= Chills/Flushing Restless Observation: 0= Sits Still Pupil Size: 1= Pupils >than Normal Bone or Joint Aches: 1= Mild Discomfort Runny Nose/ Eye Tearin= Nasal Congestion GI Upset > 30mins: 0= None Tremor Observation of Outstretched Hands: 1= Tremor [place], Not Seen Yawning Observation: 0= None Anxiety or Irritability: 1=Feels Anxious/Irritable Goose Flesh Skin: 0=Smooth Skin COWS Score: 6 BHS Progress Note (SOAP) Subjective: 24 years old male admitted on 12/11/19 for opiate withdrawal sx management treating with methadone detox regiment doing ok today less general joints pain sleep better at night patient determines to stay in recovery facility [facility] discussed behavior and psychosocial therapies as crucial factors for successful recovery Objective: 12/14/19 12:31 opiate withdrawal 12/14/19 12:31 Vital Signs Temperature 97.4 F L 12/14/19 09:17 Pulse Rate 61 12/14/19 09:17 Respiratory Rate 16 12/14/19 09:17 Blood Pressure 119/78 12/14/19 09:17 O2 Sat by Pulse Oximetry (%) Laboratory Last Values WBC 5.7 K/mm3 (4.0-10.0) 12/12/19 07:45 RBC 4.42 M/mm3 (4.00-5.60) 12/12/19 07:45 Hgb 13.1 GM/dL (11.7-16.9) 12/12/19 07:45 Hct 38.6 % (35.4-49) 12/12/19 07:45 MCV 87.2 fl (80-96) 12/12/19 07:45 MCH 29.6 pg (25.7-33.7) 12/12/19 07:45 MCHC 33.9 g/dl (32.0-35.9) 12/12/19 07:45 RDW 13.3 % (11.9-15.9) 12/12/19 07:45 Plt Count 197 K/MM3 (134-434) D 12/12/19 07:45 MPV 9.4 fl (7.5-11.1) 12/12/19 07:45 Sodium 140 mmol/L (136-145) 12/12/19 07:45 Potassium 4.2 mmol/L (3.5-5.1) 12/12/19 07:45 Chloride 106 mmol/L (98-107) 12/12/19 07:45 Carbon Dioxide 29 mmol/L (21-32) 12/12/19 07:45 Anion Gap 5 MMOL/L (8-16) L 12/12/19 07:45 BUN 14.2 mg/dL (7-18) 12/12/19 07:45 Creatinine 0.7 mg/dL (0.55-1.3) 12/12/19 07:45 Est GFR (CKD-EPI)AfAm 152.02 12/12/19 07:45 Est GFR (CKD-EPI)NonAf 131.16 12/12/19 07:45 Random Glucose 83 mg/dL (74-106) 12/12/19 07:45 Calcium 8.4 mg/dL (8.5-10.1) L 12/12/19 07:45 Total Bilirubin 0.3 mg/dL (0.2-1) 12/12/19 07:45 AST 22 U/L (15-37) 12/12/19 07:45 ALT 26 U/L (13-61) 12/12/19 07:45 Alkaline Phosphatase 63 U/L (45-117) 12/12/19 07:45 Total Protein 6.5 g/dl (6.4-8.2) 12/12/19 07:45 Albumin 3.3 g/dl (3.4-5.0) L 12/12/19 07:45 RPR Titer Nonreactive (NONREACTIVE) 12/12/19 07:45 lab noted Assessment: 12/14/19 12:32 opiate withdrawal Plan: methadone regiment
[2019-12-14] MEDS: THIAMINE HCL 100 MG TABLET (FP) PO SCH (22:17)
[2019-12-14] MEDS: MELATONIN 5 MG TABLETS PO PRN (22:17)
[2019-12-15] MEDS ORDERED: METHADONE HCL 10 MG TABLET (FOR DETOX USE ONLY) PO ONE (10:00)
[2019-12-15] MEDS: FAMOTIDINE 20 MG TABLET PO SCH ×2 (10:32→22:01)
[2019-12-15] MEDS: PRENATAL VITAMINS W/ FOLIC ACID TABLET (FP) PO SCH (10:32)
[2019-12-15] MEDS: NICOTINE 14 MG/24 HOURS TOPICAL PATCH TD SCH (10:33)
--- NOTE | 2019-12-15 12:39 | PN ---
BHS COWS - Scale Resting Pulse: 1= [place] 81-100 Sweatin= Chills/Flushing Restless Observation: 0= Sits Still Pupil Size: 0= Normal to Room Light Bone or Joint Aches: 1= Mild Discomfort Runny Nose/ Eye Tearin= None GI Upset > 30mins: 0= None Tremor Observation of Outstretched Hands: 1= Tremor [place], Not Seen Yawning Observation: 1= 1-2x During Session Anxiety or Irritability: 1=Feels Anxious/Irritable Goose Flesh Skin: 0=Smooth Skin COWS Score: 6 BHS Progress Note (SOAP) Subjective: c/o body ache chills, sweats Objective: 12/15/19 12:38 Vital Signs Temp 97 F L 12/15/19 09:04 Pulse 83 12/15/19 09:04 Resp 20 12/15/19 09:04 BP 121/77 12/15/19 09:04 Pulse Ox Laboratory Last Values WBC 5.7 K/mm3 (4.0-10.0) 12/12/19 07:45 RBC 4.42 M/mm3 (4.00-5.60) 12/12/19 07:45 Hgb 13.1 GM/dL (11.7-16.9) 12/12/19 07:45 Hct 38.6 % (35.4-49) 12/12/19 07:45 MCV 87.2 fl (80-96) 12/12/19 07:45 MCH 29.6 pg (25.7-33.7) 12/12/19 07:45 MCHC 33.9 g/dl (32.0-35.9) 12/12/19 07:45 RDW 13.3 % (11.9-15.9) 12/12/19 07:45 Plt Count 197 K/MM3 (134-434) D 12/12/19 07:45 MPV 9.4 fl (7.5-11.1) 12/12/19 07:45 Sodium 140 mmol/L (136-145) 12/12/19 07:45 Potassium 4.2 mmol/L (3.5-5.1) 12/12/19 07:45 Chloride 106 mmol/L (98-107) 12/12/19 07:45 Carbon Dioxide 29 mmol/L (21-32) 12/12/19 07:45 Anion Gap 5 MMOL/L (8-16) L 12/12/19 07:45 BUN 14.2 mg/dL (7-18) 12/12/19 07:45 Creatinine 0.7 mg/dL (0.55-1.3) 12/12/19 07:45 Est GFR (CKD-EPI)AfAm 152.02 12/12/19 07:45 Est GFR (CKD-EPI)NonAf 131.16 12/12/19 07:45 Random Glucose 83 mg/dL (74-106) 12/12/19 07:45 Calcium 8.4 mg/dL (8.5-10.1) L 12/12/19 07:45 Total Bilirubin 0.3 mg/dL (0.2-1) 12/12/19 07:45 AST 22 U/L (15-37) 12/12/19 07:45 ALT 26 U/L (13-61) 12/12/19 07:45 Alkaline Phosphatase 63 U/L (45-117) 12/12/19 07:45 Total Protein 6.5 g/dl (6.4-8.2) 12/12/19 07:45 Albumin 3.3 g/dl (3.4-5.0) L 12/12/19 07:45 RPR Titer Nonreactive (NONREACTIVE) 12/12/19 07:45 Assessment: 12/15/19 15:03 patient is Aox3 no acute distress EENT WNL Full ROM no gait disturbance withdrawal sx Plan: increase fluids continue detox d/c in AM to [facility]
[2019-12-15] MEDS: THIAMINE HCL 100 MG TABLET (FP) PO SCH (22:01)
[2019-12-15] MEDS: MELATONIN 5 MG TABLETS PO PRN (22:02)
[2019-12-16] MEDS ORDERED: METHADONE HCL 5 MG TABLET (FOR DETOX USE ONLY) PO ONE (06:00)
[2019-12-16 09:12] VITALS: BP 132/86; PULSE 89; TEMP 97.1
--- NOTE | 2019-12-16 13:36 | DS ---
[facility] Detox Discharge Summary Admission Date: 12/11/19 Discharge Date: 12/16/19 - History Present History: Cocaine Dependence, Opioid Dependence Additional Comments: As per H&P: "24 year old male with history of heroin and cocaine use disorder. He overdosed a few years ago. He carries Narcan kit. He is at high risk for overdose due to intravenous use. He was just here for detox in 11/14/19 -. Completed detox and then was abstinent for a short period but relapsed once again. He's had unintentional weight loss from substance use. Prior to that he was abstinent for over one year. He is currently using heroin at 1 bundle daily, last used yesterday. He is smoking crack and last used this morning. He is smoking 1 ppd since the age of 14". Pt is medically cleared and discharged today. Pt completed the detox protocol. Pt is encouraged to follow-up with an outpatient CD program and also to follow- up with his pmd. Pt verbalized understanding of the information given. Pt is alert and oriented x3 and in no respiratory distress. Pertinent Past History: h/o heroin and cocaine use disorder. - Physical Exam Results Vital Signs: Vital Signs Temperature 97.1 F L 12/16/19 09:11 Pulse Rate 89 12/16/19 09:11 Respiratory Rate 16 12/16/19 09:11 Blood Pressure 132/86 12/16/19 09:11 O2 Sat by Pulse Oximetry (%) Vital Signs 12/16/19 12/16/19 06:23 09:11 Temperature 97.2 F L 97.1 F L Pulse Rate 60 89 Respiratory 18 16 Rate Blood Pressure 114/69 132/86 Laboratory Last Values WBC 5.7 K/mm3 (4.0-10.0) 12/12/19 07:45 RBC 4.42 M/mm3 (4.00-5.60) 12/12/19 07:45 Hgb 13.1 GM/dL (11.7-16.9) 12/12/19 07:45 Hct 38.6 % (35.4-49) 12/12/19 07:45 MCV 87.2 fl (80-96) 12/12/19 07:45 MCH 29.6 pg (25.7-33.7) 12/12/19 07:45 MCHC 33.9 g/dl (32.0-35.9) 12/12/19 07:45 RDW 13.3 % (11.9-15.9) 12/12/19 07:45 Plt Count 197 K/MM3 (134-434) D 12/12/19 07:45 MPV 9.4 fl (7.5-11.1) 12/12/19 07:45 Sodium 140 mmol/L (136-145) 12/12/19 07:45 Potassium 4.2 mmol/L (3.5-5.1) 12/12/19 07:45 Chloride 106 mmol/L (98-107) 12/12/19 07:45 Carbon Dioxide 29 mmol/L (21-32) 12/12/19 07:45 Anion Gap 5 MMOL/L (8-16) L 12/12/19 07:45 BUN 14.2 mg/dL (7-18) 12/12/19 07:45 Creatinine 0.7 mg/dL (0.55-1.3) 12/12/19 07:45 Est GFR (CKD-EPI)AfAm 152.02 12/12/19 07:45 Est GFR (CKD-EPI)NonAf 131.16 12/12/19 07:45 Random Glucose 83 mg/dL (74-106) 12/12/19 07:45 Calcium 8.4 mg/dL (8.5-10.1) L 12/12/19 07:45 Total Bilirubin 0.3 mg/dL (0.2-1) 12/12/19 07:45 AST 22 U/L (15-37) 12/12/19 07:45 ALT 26 U/L (13-61) 12/12/19 07:45 Alkaline Phosphatase 63 U/L (45-117) 12/12/19 07:45 Total Protein 6.5 g/dl (6.4-8.2) 12/12/19 07:45 Albumin 3.3 g/dl (3.4-5.0) L 12/12/19 07:45 RPR Titer Nonreactive (NONREACTIVE) 12/12/19 07:45 Labs noted. Pertinent Admission Physical Exam Findings: withdrawal symptoms. - Treatment Hospital Course: Detox Protocol Followed, Detoxed Safely, Responded well, Discharged Condition Good - Medication Discharge Medications: Ambulatory Orders Naloxone HCl [Narcan] 4 mg NS ASDIR PRN #1 spray 12/12/19 - Diagnosis (1) Opioid dependence with withdrawal Status: Acute (2) IVDU (intravenous drug user) Status: Chronic (3) Nicotine dependence Status: Chronic (4) Cocaine use disorder Status: Chronic - AMA Did Patient Leave Against Medical Advice: No
== END 2019-12-16 09:43 | disposition home or self-care (01) | DRG 773 ==
LOC: YASAS 09:06 → Y3N 10:20
PROVIDERS: ADMIT Allergy & Immunology; ATTEND Allergy & Immunology
PROC: HZ2ZZZZ Detoxification Services for Substance Abuse Treatment (ICD-10-PCS; principal; 2019-12-11)
DX: F11.23 Opioid dependence with withdrawal (principal); F14.20 Cocaine dependence, uncomplicated; F17.210 Nicotine dependence, cigarettes, uncomplicated; B18.2 Chronic viral hepatitis C; Z86.19 Personal history of other infectious and parasitic diseases
CPT/HCPCS: 36415; 80053; 85027; 86593

== ENCOUNTER 2020-06-19 12:15 | Inpatient (IN) | payer OTHER ==
--- NOTE | 2020-06-19 12:36 | BHS.RME ---
Substance Use & Tx History - Substance Use History Heroin Substance amount: 2-3 bundles Frequency of use: Daily Substance route: Injection (ex: intravenous or skin popping) Date of Last Use: 06/19/20 Cocaine- Powder Substance amount: 1/2 gram Frequency of use: Less than 3 times per week Substance route: Injection (ex: intravenous or skin popping) Date of Last Use: 06/18/20 Xanax Substance amount: 2 mg - 2 tabs Frequency of use: Daily Substance route: Oral Date of Last Use: 06/17/20 Physical/Psych/Mental Status - Behavior General Behavior: Decreased activity Eye Contact: Normal - Cooperativeness Cooperativeness: Cooperative - Thinking Thought Processes: Tight, Logical, Goal Directed - Physical Health Problems Is patient presently having any pain?: No Does patient presently have any injuries (include location): No Does patient currently have a fever: No Is patient : No COWS - Scale Resting Pulse: 0= [place] 80 or Below Sweatin= No chills or Flushing Restless Observation: 0= Sits Still Pupil Size: 0= Normal to Room Light Bone or Joint Aches: 0= None Runny Nose/ Eye Tearin= Nasal Congestion GI Upset > 30mins: 1= Stomach Cramp Tremor Observation: 1= Tremor [place], Not Seen Yawning Observation: 0= None Anxiety or Irritability: 0= None Goose Flesh Skin: 0=Smooth Skin (not yet in withdrawals, used 1 hour prior to coming in.) COWS Score: 3
--- NOTE | 2020-06-19 13:59 | HP ---
COWS - Scale Resting Pulse: 0= [place] 80 or Below Sweatin= No chills or Flushing Restless Observation: 0= Sits Still Pupil Size: 0= Normal to Room Light Bone or Joint Aches: 0= None Runny Nose/ Eye Tearin= Nasal Congestion GI Upset > 30mins: 1= Stomach Cramp Tremor Observation: 1= Tremor [place], Not Seen Yawning Observation: 0= None Anxiety or Irritability: 0= None Goose Flesh Skin: 0=Smooth Skin (not yet in withdrawals, used 1 hour prior to coming in.) COWS Score: 3 CIWA Score - Admission Criteria OASAS Guidelines: Admission for Medically Managed Detox: Requires at least one of the followin. CIWA greater than 12 2. Seizures within the past 24 hours 3. Delirium tremens within the past 24 hours 4. Hallucinations within the past 24 hours 5. Acute intervention needed for co occurring medical disorder 6. Acute intervention needed for co occurring psychiatric disorder 7. Severe withdrawal that cannot be handled at a lower level of care (continued vomiting, continued diarrhea, abnormal vital signs) requiring intravenous medication and/or fluids 8. Admitting History and Physical - Admission Chief Complaint: Patient is a 25 year old man who presents for detox from heroin as 'he does not want to use anymore'. History of Present Illness: CC: Patient is a 25 year old man who presents for detox from heroin as 'he does not want to use anymore'. He was previously at [facility] from 12/11/19 to 12/16/19 during which he completed detox but relapsed 6 weeks ago. 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) Abscess on R forearm (appeared 06/15/20): was seen at [facility] 06/18/20, and the abscess was drained, he was put on Clindamycin PSH: Surgery for broken right foot 2016 Psych: PTSD Social History: Homeless Legal: None - Substance Use History Heroin Substance amount: 2-3 bundles Frequency of use: Daily Substance route: Injection (ex: intravenous or skin popping) Date of Last Use: 06/19/20 Cocaine- Powder Substance amount: 1/2 gram Frequency of use: Less than 3 times per week Substance route: Injection (ex: intravenous or skin popping) Date of Last Use: 06/18/20 Xanax Substance amount: 2 mg - 2 tabs Frequency of use: Daily Substance route: Oral Date of Last Use: 06/17/20 History Source: Patient Limitations to Obtaining History: No Limitations - Smoking History Smoking history: Current every day smoker Have you smoked in the past 12 months: Yes Aproximately how many cigarettes per day: 20 - Alcohol/Substance Use Hx Alcohol Use: No History of Substance Use: reports: Cocaine, Heroin - Social History ADL: Independent Occupation: Currently unemployed. History of Recent Travel: No Admission [facility] Chief Complaint: Patient is a 25 year old man who presents for detox from heroin as 'he does not want to use anymore'. Allergies/Adverse Reactions: Allergies Allergy/AdvReac Type Severity Reaction Status Date / Time haloperidol Allergy Severe Difficulty Verified 06/19/20 14:06 Breathing haloperidol Allergy Severe Uncoded 06/19/20 14:06 Exam Limitations: No Limitations - Ebola screening Have you traveled outside of the country in the last 21 days: No Have you had contact with anyone from an Ebola affected area: No Have you been sick,other than usual withdrawal symptoms: No (Visit to the ED 06/18 for drainage of right forearm abscess ) Do you have a fever: No - Review of Systems Constitutional: No Symptoms Reported, Weight Stable EENT: denies: Eye Pain, Ear Pain, Nose Congestion, Dental Problems Respiratory: denies: Cough, Shortness of Breath Cardiac: denies: Chest Pain, Lightheadedness, Palpitations GI: reports: Diarrhea, Nausea, Poor Appetite. denies: Abdominal cramping Musculoskeletal: denies: Back Pain, Muscle Weakness (Patient has an abscess 2x2 cm on the right forearm) Neuro: reports: Numbness, Tingling (Numbness and tingling on right hand due to Wednesday night palsy). denies: Headache Endocrine: denies: Intolerance to Cold, Intolerance to Heat Hematology: denies: Easy Bruising, Swollen Glands Psychiatric: reports: other (Not oriented to time but oriented to self and place.) Patient History - Patient Medical History Hx Anemia: No Hx Asthma: No Hx Chronic Obstructive Pulmonary Disease (COPD): No Hx Cancer: No Hx Cardiac Disorders: No Hx Congestive Heart Failure: No Hx Hypertension: No Hx Hypercholesterolemia: No Hx Pacemaker: No HX Cerebrovascular Accident: No Hx Seizures: No Hx Dementia: No Hx Diabetes: No Hx Gastrointestinal Disorders: No Hx Liver Disease: Yes (HCV (UNTREATED)) Hx Genitourinary Disorders: No Hx Sexually Transmitted Disorders: Yes (Chlamydia (treated)) Hx Renal Disease (ESRD): No Hx Thyroid Disease: No Hx Human Immunodeficiency Virus (HIV): No Hx Hepatitis C: Yes (NO [place] REQUIRED ) Hx Depression: No Hx Suicide Attempt: No Hx Bipolar Disorder: No Hx Schizophrenia: No - Patient Surgical History Past Surgical History: Yes Hx Neurologic Surgery: No Hx Cataract Extraction: No Hx Cardiac Surgery: No Hx Lung Surgery: No Hx Breast Surgery: No Hx Breast Biopsy: No Hx Abdominal Surgery: No Hx Appendectomy: No Hx Cholecystectomy: No Hx Genitourinary Surgery: No Hx Section: No Hx Orthopedic Surgery: Yes (RIGHT ANKLE SX 05/2019) Anesthesia Reaction: No - PPD History Date: 11/16/19 Results: negative - Smoking Cessation Smoking history: Current every day smoker Have you smoked in the past 12 months: Yes Aproximately how many cigarettes per day: 10 Hx Chewing Tobacco Use: No Initiated information on smoking cessation: Yes 'Breaking Loose' booklet given: 06/19/20 Admission Physical Exam [facility] - Physical General Appearance: Yes: Disheveled HEENTM: Yes: Normocephalic. No: Scleral Ictenus R, Scleral Ictenus L, Nasal Congestion, Rhinorrhea, Excessive Drooling, Muffled/Hoarse Voice Respiratory: Yes: Within Normal Limits, Normal Breath Sounds. No: Crackles, Rhonchi, Stridor, Wheezing, Expiration Neck: Yes: Supple, Trachea in good position Breast: Yes: Breast Exam Deferred Cardiology: Yes: Regular Rhythm, Regular Rate, S1, S2. No: Bradycardia, Edema Abdominal: Yes: Normal Bowel Sounds, Non Tender, Flat, Soft Back: Yes: Within Normal Limits Musculoskeletal: Yes: full range of Motion, Gait Steady. No: Joint swelling, Muscle Pain (2x2 cm abscess on right forearm) Extremities: Yes: Within Normal Limits (2x2 cm abscess on right forearm) Neurological: Yes: Alert, Motor Strength 5/5, Finger to Nose Integumentary: Yes: Erythema (healing cuts on left ankle from stepping on glass) Cleared for Admission S - Detox or Rehab Detox Regimen/Protocol: Methadone Claeared for Rehab Admission: No Breathalyzer - Breathalyzer Breathalyzer: 0 Urine Drug Screen - Test Device Lot number: [id number] Expiration date: 06/25/22 - Control Is test valid?: Yes - Results Drug screen NEGATIVE: No Urine drug screen results: VANDA-Cocaine, FEN-Fentanyl, MOP-Opiates Inpatient Rehab Admission - Rehab Decision to Admit Inpatient rehab admission?: No
[2020-06-19] MEDS ORDERED: ACETAMINOPHEN 325 MG TABLET (FP) PO PRN ×2 (14:24)
[2020-06-19] MEDS ORDERED: METHADONE HCL 10 MG TABLET (FOR DETOX USE ONLY) PO ONE (14:24)
[2020-06-19] MEDS ORDERED: NICOTINE POLACRILEX 2 MG GUM BUC PRN (14:24)
[2020-06-19] MEDS ORDERED: MENTHOL/PHENOL 1 EACH UD MM PRN (14:24)
[2020-06-19] MEDS ORDERED: METHOCARBAMOL 500 MG TABLET PO PRN (14:24)
[2020-06-19] MEDS ORDERED: cloNIDine HCL 0.1 MG TABLET PO PRN (14:24)
[2020-06-19] MEDS ORDERED: MAGNESIUM CITRATE 300 ML BOTTLE PO PRN (14:24)
[2020-06-19] MEDS ORDERED: MAGNESIUM HYDROX 2400MG/30ML ORAL SUSPENSION 30 ML CUP PO PRN (14:24)
[2020-06-19] MEDS ORDERED: BISMUTH SUBSALICYLATE 262 MG/15 ML BTL PO PRN (14:24)
[2020-06-19] MEDS ORDERED: MAG HYDROX/AL HYDROX/SIMETH 30 ML UNIT-DOSE CUP PO PRN (14:24)
[2020-06-19] MEDS ORDERED: ONDANSETRON *ODT* 4 MG TABLET SL ONE (14:24)
[2020-06-19] MEDS ORDERED: ONDANSETRON *ODT* 4 MG TABLET SL PRN (14:42)
--- NOTE | 2020-06-19 15:25 | PN ---
Teaching Attending Note Name of Resident: Rosa Grullon ATTENDING PHYSICIAN STATEMENT I saw and evaluated the patient. I reviewed the resident's note and discussed the case with the resident. I agree with the resident's findings and plan as documented. SUBJECTIVE: OBJECTIVE: ASSESSMENT AND PLAN: Mr. Barron is a 25 year old man who presents for detox from heroin as 'he does not want to use anymore'. He was previously at [facility] from 12/11/19 to 12/16/19 during which he completed detox but relapsed 6 weeks ago. 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) Abscess on R forearm (appeared 06/15/20): was seen at [facility] 06/18/20, and the abscess was drained, he was put on Clindamycin PSH: Surgery for broken right foot 2015 Psych: PTSD Social History: Homeless Legal: None - Substance Use History Heroin Substance amount: 2-3 bundles Frequency of use: Daily Substance route: Injection (ex: intravenous or skin popping) Date of Last Use: 06/19/20 Cocaine- Powder Substance amount: 1/2 gram Frequency of use: Less than 3 times per week Substance route: Injection (ex: intravenous or skin popping) Date of Last Use: 06/18/20 Xanax Substance amount: 2 mg - 2 tabs Frequency of use: Daily Substance route: Oral Date of Last Use: 06/17/20 PE weakness left wrist extensors, finger extensors, sensory loss to light touch in the right hand web space. Impression 1. Opioid use disorder 2. Cocaine dependence 3. Benzodiazepine use, mild 4. Left radial nerve palsy, consistent with Wednesday night palsy: weakness left wrist extensors, finger extensors, sensory loss to light touch in the right hand web space. Plan 1. Methadone detox protocol
[2020-06-19 15:29] VITALS: BMI 23.4
[2020-06-19 17:09] LABS: HEMATOCRIT 37.5 % (35.4-49); HEMOGLOBIN 12.7 GM/dL (11.7-16.9); MCH 28.8 pg (25.7-33.7); MEAN CELL VOLUME 84.7 fl (80-96); MEAN PLT VOLUME 9.3 fl (7.5-11.1); PLATELET COUNT 201 K/MM3 (134-434); RBC 4.43 M/mm3 (4.00-5.60)
[2020-06-19] MEDS: CLINDAMYCIN HCL 150 MG CAPSULE (FP) PO SCH ×2 (17:13→23:03)
[2020-06-19] MEDS: hydrOXYzine PAMOATE 25 MG CAPSULE (FP) PO SCH ×2 (17:13→23:13)
[2020-06-19 17:23] LABS: ALBUMIN 3.5 g/dl (3.4-5.0); BILIRUBIN,TOTAL 0.5 mg/dL (0.2-1); BLOOD UREA NITROGEN 13.2 mg/dL (7-18); CALCIUM 8.8 mg/dL (8.5-10.1); CREATININE 0.8 mg/dL (0.55-1.3); POTASSIUM 4.1 mmol/L (3.5-5.1); TOT PROT 7.8 g/dl (6.4-8.2)
[2020-06-19] MEDS ORDERED: diazePAM 5 MG TABLET PO PRN (17:23)
--- NOTE | 2020-06-19 17:32 | PN ---
S CIWA - CIWA Score Nausea/Vomitin-Mild Nausea/No Vomiting Muscle Tremors: 2 Anxiety: 1-Mildly Anxious Agitation: 0-Normal Activity Paroxysmal Sweats: 2 Orientation: 0-Oriented Tacttile Disturbances: 1-Very Mild Itch/Numbness Auditory Disturbances: 0-None Visual Disturbances: 2-Mild Sensitivity Headache: 4-Moderately Severe CIWA-Ar Total Score: 13 [facility] Progress Note (SOAP) Subjective: Patient clarifies that he has been using Xanax 1mg/day or Klonopin 3mg/day, sometimes both combined, for the past month due to worsening PTSD symptoms. Assessment: CIWA score 13, withdrawal from benzodiazepine Plan: Initiate Valium taper at 22:00
[2020-06-19] MEDS: MELATONIN 5 MG TABLETS PO SCH (23:03)
[2020-06-19] MEDS: THIAMINE HCL 100 MG TABLET (FP) PO SCH (23:03)
[2020-06-19] MEDS: diazePAM 5 MG TABLET PO SCH (23:03)
[2020-06-20] MEDS: IBUPROFEN 400 MG TABLET (FP) PO PRN ×2 (03:58→11:28)
--- NOTE | 2020-06-20 05:37 | PN ---
[facility] Progress Note Note: SEEN FOR C/O WORSENING C/O PAIN TO R AC ABCESS. CLIENT IS REQUESTING TO GO TO THE HOSPITAL. ACCORDING TO ADMISSION NOTE CLIENT WAS SEEN AT [facility] ON 06/18/2020 AND I&D WAS PERFORMED AND STARTED ON CLINDAMYCIN SEEN LYING IN BED WITH EYE CLOSED CLIENT IS A/O X3, IRRITABLE R ARM- AC NOTED WITH REDNESS WARMTH AND INDURATED ABCESS DRAINING CLEAR DC, TENDER TO TOUCH- AREA DEMARCATED BY SPRING TACKER. FOREARM NOTED WITH SOFT CAST 2/2 R RADIAL NERVE PALSY VS- 135/75 HR- 71 R- 20. T98.3 ORAL Laboratory Tests 06/19/20 06/19/20 06/19/20 14:15 14:15 14:15 WBC 10.0 RBC 4.43 Hgb 12.7 Hct 37.5 MCV 84.7 MCH 28.8 MCHC 34.0 RDW 13.0 Plt Count 201 MPV 9.3 Sodium 135 L Potassium 4.1 Chloride 99 Carbon Dioxide 27 Anion Gap 9 BUN 13.2 Creatinine 0.8 Est GFR (CKD-EPI)AfAm 142.89 Est GFR (CKD-EPI)NonAf 123.29 Random Glucose 112 H Calcium 8.8 Total Bilirubin 0.5 AST 22 ALT 20 Alkaline Phosphatase 79 Total Protein 7.8 Albumin 3.5 Syphilis Serology Reactive A* CLIENT WITH REACTIVE SYPHILIS, RPR PENDING. LAST TEST 11/2019 WAS NEGATIVE. CLIENT REPORTS KNOWN STATUS NOT SURE OF DATE. STATES HE WAS NOT TREATED. P- CONTINUE CLINDAMYCIN WARM COMPRESS TO R AC QID TYLENOL/ MOTRIN FOR PAIN WILL ENDORSE TO UNIT PROVIDER TO MONITOR FOR RPR TITER
[2020-06-20] MEDS: diazePAM 5 MG TABLET PO SCH ×3 (05:55→23:33)
[2020-06-20] MEDS: CLINDAMYCIN HCL 150 MG CAPSULE (FP) PO SCH ×3 (05:55→23:33)
[2020-06-20] MEDS: hydrOXYzine PAMOATE 25 MG CAPSULE (FP) PO SCH ×5 (05:55→23:33)
--- NOTE | 2020-06-20 09:53 | CONSULT ---
[facility] Psychiatric Consult - Data Date of interview: 06/20/20 Admission source: Self-referred Identifying data: Mr Barron is a 25 years old male seeking detox treatment for opioid, cocaine and benzodiazepine Substance Abuse History: Reports history of heroin, coaine and xanax use. Refer to addiction counselor's sumary for further information Medical History: Significant for radial nerve palsy right upper exytremity , h istory of I&D abscess right forearm and orthosurgery for fracture right foot in 2016. Smokes Psychiatric History: Patient was approached by Ms Bernadette RN. Nursing staff related that patient said that he could not be interviewed today because he was experiencing a lot of pain. Please reconsult when patient is more appropriate for interview
[2020-06-20] MEDS ORDERED: METHADONE (DETOX) 20 MG, METHADONE (DETOX) 5 MG PO ONE (10:00)
[2020-06-20] MEDS ORDERED: PRENATAL VITAMINS W/ FOLIC ACID TABLET (FP) PO SCH (10:00)
[2020-06-20] MEDS ORDERED: NICOTINE 7 MG/24 HOURS TOPICAL PATCH TD SCH (10:00)
[2020-06-20] MEDS ORDERED: METHADONE HCL 10 MG TABLET (FOR DETOX USE ONLY) ONE (11:28)
[2020-06-20] MEDS ORDERED: METHADONE HCL 5 MG TABLET (FOR DETOX USE ONLY) ONE (11:29)
[2020-06-20] MEDS ORDERED: IBUPROFEN 600 MG TABLET (FP) PO PRN (14:16)
--- NOTE | 2020-06-20 14:31 | PN ---
[facility] Progress Note (SOAP) Subjective: Pt is a c/o sweats chills fatigue Objective: 06/20/20 14:17 Vital Signs - 24 hr 06/19/20 06/19/20 06/19/20 15:12 16:32 20:44 Temperature 97.3 F L 97.8 F 97.3 F L Pulse Rate 59 L 60 86 Respiratory 12 18 18 Rate Blood Pressure 112/65 111/66 120/68 O2 Sat by Pulse 96 Oximetry (%) 06/20/20 06/20/20 07:00 08:51 Temperature 98.6 F 97.7 F Pulse Rate 71 58 L Respiratory 18 16 Rate Blood Pressure 130/73 134/77 O2 Sat by Pulse 96 Oximetry (%) Laboratory Tests 06/19/20 06/19/20 06/19/20 14:15 14:15 14:15 WBC 10.0 RBC 4.43 Hgb 12.7 Hct 37.5 MCV 84.7 MCH 28.8 MCHC 34.0 RDW 13.0 Plt Count 201 MPV 9.3 Sodium 135 L Potassium 4.1 Chloride 99 Carbon Dioxide 27 Anion Gap 9 BUN 13.2 Creatinine 0.8 Est GFR (CKD-EPI)AfAm 142.89 Est GFR (CKD-EPI)NonAf 123.29 Random Glucose 112 H Calcium 8.8 Total Bilirubin 0.5 AST 22 ALT 20 Alkaline Phosphatase 79 Total Protein 7.8 Albumin 3.5 Syphilis Serology Reactive A* RPR Titer 06/19/20 14:15 WBC RBC Hgb Hct MCV MCH MCHC RDW Plt Count MPV Sodium Potassium Chloride Carbon Dioxide Anion Gap BUN Creatinine Est GFR (CKD-EPI)AfAm Est GFR (CKD-EPI)NonAf Random Glucose Calcium Total Bilirubin AST ALT Alkaline Phosphatase Total Protein Albumin Syphilis Serology RPR Titer Reactive 1:2 H D Labs noted RPR 1:2 at this admission. pt was previously nonreactive in two previous admissions on 11/14/19 and 12/11/19 Pt now reported to Nurse Ms Lisbeth Mercadoirineo that he has previous hx of syphilis with treatment. Alert o x 3 nad pt seen in bed during round but communicated needs coherently. Assessment: 06/20/20 14:17 withdrawal sx Plan: cont detox increase po fluids maintain safety Bacitracin Ointment to affected area on right antecubital area.
--- NOTE | 2020-06-20 18:18 | PN ---
[facility] Progress Note Note: Was called to come and evaluate patient for right arm pain. Upon arrival patient was found sitting out side the unit yelling and cursing, " I want to go to the [facility] ED and what is so difficult about, I'm in fucking pain". 911 was already activated by nursing cloth shrinking supervisor. Patient was endorsed to Dr. Hare in [facility] ED. Patient waiting to be picked up ambulance.
[2020-06-20] MEDS ORDERED: BACITRACIN 0.9 GM PACKET TP SCH (22:00)
[2020-06-20 22:32] VITALS: BP 121/68; PULSE 59; TEMP 97.8
[2020-06-20] MEDS: THIAMINE HCL 100 MG TABLET (FP) PO SCH (23:33)
[2020-06-20] MEDS: MELATONIN 5 MG TABLETS PO SCH (23:33)
[2020-06-21] MEDS ORDERED: diazePAM 5 MG TABLET PO SCH (06:00)
[2020-06-21] MEDS ORDERED: METHADONE HCL 10 MG TABLET (FOR DETOX USE ONLY) PO ONE (10:00)
[2020-06-22] MEDS ORDERED: diazePAM 5 MG TABLET PO ONE (06:00)
[2020-06-22] MEDS ORDERED: METHADONE (DETOX) 10 MG, METHADONE (DETOX) 5 MG PO ONE (10:00)
[2020-06-23] MEDS ORDERED: METHADONE HCL 10 MG TABLET (FOR DETOX USE ONLY) PO ONE (10:00)
[2020-06-24] MEDS ORDERED: METHADONE HCL 5 MG TABLET (FOR DETOX USE ONLY) PO ONE (06:00)
== END 2020-06-21 00:35 | disposition short-term general hospital (02) | DRG 773 ==
LOC: YASAS 12:15 → Y5N DETOX 15:24
PROVIDERS: ADMIT Allergy & Immunology; ATTEND Allergy & Immunology
PROC: HZ2ZZZZ Detoxification Services for Substance Abuse Treatment (ICD-10-PCS; principal; 2020-06-19)
DX: F11.23 Opioid dependence with withdrawal (principal); F14.20 Cocaine dependence, uncomplicated; F13.10 Sedative, hypnotic or anxiolytic abuse, uncomplicated; F17.210 Nicotine dependence, cigarettes, uncomplicated; L02.413 Cutaneous abscess of right upper limb; Z87.438 Personal history of other diseases of male genital organs; Z88.8 Allergy status to other drugs, medicaments and biological substances
CPT/HCPCS: 36415; 80053; 85027; 86593; 86780; Q0162; U0003

== ENCOUNTER 2020-06-20 18:23 | Inpatient (IN) | payer OTHER ==
--- NOTE | 2020-06-20 19:03 | PDOC ---
History of Present Illness - General Chief Complaint: Wound Stated Complaint: abcess Time Seen by Provider: 06/20/20 19:03 History Source: Patient Exam Limitations: No Limitations - History of Present Illness Initial Comments: 06/20/20 20:43 HPI: This is a 25 y/o male with a PMH significant for IV heroin use presenting from detox at [facility] due to an abscess in his right antecubital fossa. He reports that he had the abscess drained 3x in the past 3 days at [facility]. He was put on PO Clindamycin but the pain and swelling has been getting worse in the past 24 hours along with increased redness up spreading out from the site. He denies any systemic symptoms. He denies fever/chills, nausea, vomiting. ROS: GENERAL/CONSTITUTIONAL: No fever/chills. No weakness. CARDIOVASCULAR: No chest pain or shortness of breath. RESPIRATORY: No cough, wheezing GASTROINTESTINAL: No nausea, vomiting GENITOURINARY: No dysuria, frequency, or change in urination. MUSCULOSKELETAL: Right arm pain and swelling SKIN: Abscess in right antecubital fosssa NEUROLOGIC: No headache or change in strength/sensation. PMH: Denied PSx: Denied Social Hx: IV drug use Meds: Denied Allergies: Haloperidol PE: GENERAL: Awake, alert, and fully oriented. Laying in hospital bed in acute distress due to pain. HEAD: No signs of trauma EYES: PERRL, EOMI NECK: Normal ROM, supple LUNGS: Breath sounds equal, clear to auscultation bilaterally. No wheezes, and no crackles HEART: Regular rate and rhythm, normal S1 and S2, no murmurs, rubs or gallops ABDOMEN: Soft, nontender EXTREMITIES: 2cm x 2cm abscess in right antecubital fossa with purulent drainage and erythemetous spread medial and distal to the infection. Site is warm to the touch. Right wrist wrapped. NEUROLOGICAL: Cranial nerves II through XII grossly intact. Normal speech, normal gait SKIN: Warm, Dry, normal turgor, no rashes or lesions noted except as noted above. 06/20/20 20:46 MDM: This is a 25 y/o male known IV drug user presenting from [facility] due to abscess and cellulitis in his right antecubital fossa. - R. Antecubital fossa with purulent abscess - No systemic symptoms - U/S showed two pockets with connecting tract - I&D with packing - Admit for IV abx - CBC, CMP, EKG, blood cultures CBC WBC 10.8 K/mm3 (4.0-10.0) H 06/20/20 20:20 RBC 4.77 M/mm3 (4.00-5.60) 06/20/20 20:20 Hgb 13.6 GM/dL (11.7-16.9) 06/20/20 20:20 Hct 40.7 % (35.4-49) 06/20/20 20:20 MCV 85.4 fl (80-96) 06/20/20 20:20 MCH 28.6 pg (25.7-33.7) 06/20/20 20:20 MCHC 33.5 g/dl (32.0-35.9) 06/20/20 20:20 RDW 12.9 % (11.9-15.9) 06/20/20 20:20 Plt Count 219 K/MM3 (134-434) 06/20/20 20:20 MPV 8.5 fl (7.5-11.1) 06/20/20 20:20 Absolute Neuts (auto) 6.5 K/mm3 (1.5-8.0) 06/20/20 20:20 Neutrophils % 60.3 % (42.8-82.8) 06/20/20 20:20 Lymphocytes % 23.3 % (8-40) 06/20/20 20:20 Monocytes % 9.8 % (3.8-10.2) 06/20/20 20:20 Eosinophils % 6.0 % (0-4.5) H 06/20/20 20:20 Basophils % 0.6 % (0-2.0) 06/20/20 20:20 Nucleated RBC % 0 % (0-0) 06/20/20 20:20 Leukocytosis at 10.8 CMP Sodium 137 mmol/L (136-145) 06/20/20 20:20 Potassium 4.6 mmol/L (3.5-5.1) 06/20/20 20:20 Chloride 103 mmol/L (98-107) 06/20/20 20:20 Carbon Dioxide 26 mmol/L (21-32) 06/20/20 20:20 Anion Gap 9 MMOL/L (8-16) 06/20/20 20:20 BUN 13.5 mg/dL (7-18) 06/20/20 20:20 Creatinine 0.7 mg/dL (0.55-1.3) 06/20/20 20:20 Est GFR (CKD-EPI)AfAm 150.95 06/20/20 20:20 Est GFR (CKD-EPI)NonAf 130.24 06/20/20 20:20 Random Glucose 91 mg/dL (74-106) 06/20/20 20:20 Calcium 8.6 mg/dL (8.5-10.1) 06/20/20 20:20 Total Bilirubin 0.2 mg/dL (0.2-1) 06/20/20 20:20 AST 24 U/L (15-37) 06/20/20 20:20 ALT 22 U/L (13-61) 06/20/20 20:20 Alkaline Phosphatase 93 U/L (45-117) 06/20/20 20:20 Total Protein 7.7 g/dl (6.4-8.2) 06/20/20 20:20 Albumin 3.2 g/dl (3.4-5.0) L 06/20/20 20:20 - Signed out to [facility] Past History - Medical History Allergies/Adverse Reactions: Allergies Allergy/AdvReac Type Severity Reaction Status Date / Time haloperidol Allergy Severe Difficulty Verified 06/20/20 18:48 Breathing haloperidol Allergy Severe Uncoded 06/20/20 18:48 Home Medications: Ambulatory Orders NK [No Known Home Medication] 06/19/20 Anemia: No Asthma: No Cancer: No Cardiac Disorders: No CVA: No COPD: No CHF: No Dementia: No Diabetes: No GI Disorders: No Disorders: No HTN: No Hypercholesterolemia: No Kidney Stones: No Liver Disease: Yes (HCV (UNTREATED)) Seizures: No Thyroid Disease: No - Surgical History Abdominal Surgery: No Appendectomy: No Cardiac Surgery: No Cholecystectomy: No Lung Surgery: No Neurologic Surgery: No Orthopedic Surgery: Yes (RIGHT ANKLE SX 05/2019) - Reproductive History Testicular Surgery: No - Psycho-Social/Smoking History Smoking History: Unknown if ever smoked Have you smoked in the past 12 months: Yes Number of Cigarettes Smoked Daily: 10 'Breaking Loose' booklet given: 06/19/20 - Substance Abuse Hx (Audit-C & DAST Scrn) In the last yr the pt used illegal drug/Rx for NonMed reason: Yes Score: Yes response is considered Positive: 1 Screen Result (Positive result requires Nsg. DAST-10): Positive *Physical Exam - Vital Signs Last Vital Signs Temp Pulse Resp BP Pulse Ox 98.3 F 70 16 136/82 100 06/20/20 18:46 06/20/20 18:46 06/20/20 18:46 06/20/20 18:46 06/20/20 18:46 Procedures - Incision and Drainage I&D Site: Right: Arm Anesthesia: 1% Lidocaine Volume(ml): 20 Blade Size: 11 Attempts: 1 Iodinated Packin/ in Complications: none Dressing: Yes Heart Score/ECG Review - ECG Intrepretation Comment:: 06/20/20 22:[address] elevations or T wave inversions Vent rate 68bpm, ID interval 152ms, QRS 102 ms, QT/QTc 404/429 ED Treatment Course - LABORATORY CBC & Chemistry Diagram: 06/20/20 20:20 06/20/20 20:20 Discharge - Discharge Information Problems reviewed: Yes Clinical Impression/Diagnosis: IVDU (intravenous drug user), Opioid dependence with withdrawal, Abscess of right upper extremity Condition: Guarded - Admission Yes - Follow up/Referral - Patient Discharge Instructions - Post Discharge Activity
--- NOTE | 2020-06-20 19:34 | PDOC ---
Documentation entered by Iman Stephenson SCRIBE, acting as scribe for Mari Vasquez DO. Mari Vasquez DO: This documentation has been prepared by the Seema cheatham Brenda, SCRIBE, under my direction and personally reviewed by me in its entirety. I confirm that the documentation accurately reflects all work, treatment, procedures, and medical decision making performed by me. Attending Attestation - Resident Resident Name: Courtney Hernandez - ED Attending Attestation I have performed the following: I have examined & evaluated the patient, The case was reviewed & discussed with the resident, I agree w/resident's findings & plan, Exceptions are as noted - HPI HPI: 06/20/20 19:19 The patient is a 25 year old male non with a significant PMH of opiate and heroin abuse who presents to the emergency department from [facility] for evaluation of worsening pain on abscess located on his right upper extremity. The patient denies chest pain, shortness of breath, headache and dizziness. Denies fever, chills, nausea, vomiting, diarrhea and constipation. Denies dysuria, frequency, urgency and hematuria. Allergies:Haldol Social history: Opiate and heroin abuse - Physicial Exam PE: 06/20/20 19:28 GENERAL: Awake, alert, and fully oriented, in no acute distress HEAD: No signs of trauma EYES: PERRLA, EOMI, sclera anicteric, conjunctiva clear ENT: Auricles normal inspection, hearing grossly normal, nares patent, oropharynx clear without exudates. Moist mucosa NECK: Normal ROM, supple, no lymphadenopathy, JVD, or masses LUNGS: Breath sounds equal, clear to auscultation bilaterally. No wheezes, and no crackles HEART: Regular rate and rhythm, normal S1 and S2, no murmurs, rubs or gallops ABDOMEN: Soft, nontender, normoactive bowel sounds. No guarding, no rebound. No masses EXTREMITIES: (+) Splint on right arm for radial nerve palsy right arm splint on for radial nerve palsy (+) 3cm by 4 cm abcess with purulent drainage on the antecubital fossa of RUE t hat is tender to palpation and hot to touch. No edema. No clubbing or cyanosis. No cords, erythema. NEUROLOGICAL: Cranial nerves II through XII grossly intact. Normal speech, normal gait SKIN: Warm, Dry, normal turgor, no rashes or lesions noted. - Medical Decision Making 06/20/20 19:32 a/p: 25yo male sent from [facility] for eval of a RUE abscess to the antecubital fossa -has been drained twice -supposed to be on clinda per last ED eval -now with lymphangitic spread -will send labs, cultures -will need I&D of the abscess -will need iv abx -will need admission 06/20/20 20:43 wound has been I&D and packed by the resident 06/20/20 21:00 pt wbc 10 pt is syphilis screen + and RPR + pt also with a RUE abscess s/p I&D for the 3rd time -iv abx given -will need admission microblog sent to [facility] for admission 06/20/20 21:31 resident discussed the case with [facility] who accepts pt to service Heart Score/ECG Review - ECG Intrepretation Comment:: 06/20/20 21:13 sinus at 68, nl axis, nl interval, no acute st/t wave findings Discharge - Discharge Information Problems reviewed: Yes Clinical Impression/Diagnosis: IVDU (intravenous drug user), Opioid dependence with withdrawal, Abscess of right upper extremity Condition: Guarded - Admission Yes - Follow up/Referral - Patient Discharge Instructions - Post Discharge Activity
[2020-06-20] MEDS ORDERED: morphine CARPU-JECT 4 MG/1 ML DISP.SYRIN IVPUSH ONE (19:35)
[2020-06-20] MEDS ORDERED: LACTATED RINGERS SOLUTION 1000 ML INFUS.BAG IV ONE (19:35)
[2020-06-20] MEDS ORDERED: CLINDAMYCIN 600MG PREMIX IVPB 600 MG/50 ML BAG IVPB ONE ×2 (19:35→19:52)
[2020-06-20] MEDS ORDERED: morphine SULFATE 4 MG/ML VIAL ONE (19:52)
[2020-06-20 20:42] LABS: BASO % 0.6 % (0-2.0); HEMATOCRIT 40.7 % (35.4-49); HEMOGLOBIN 13.6 GM/dL (11.7-16.9); LYMPH % 23.3 % (8-40); MCH 28.6 pg (25.7-33.7); MCHC 33.5 g/dl (32.0-35.9); MEAN CELL VOLUME 85.4 fl (80-96); MEAN PLT VOLUME 8.5 fl (7.5-11.1); MONO % 9.8 % (3.8-10.2); NEUT % 60.3 % (42.8-82.8); PLATELET COUNT 219 K/MM3 (134-434); RBC 4.77 M/mm3 (4.00-5.60); RDW 12.9 % (11.9-15.9); WHITE BLOOD COUNT 10.8 K/mm3 (4.0-10.0)
[2020-06-20] MEDS ORDERED: SODIUM CHLORIDE 1,000 ML IV SCH (21:30)
[2020-06-20] MEDS ORDERED: diazePAM 5 MG TABLET PO ONE (21:34)
--- NOTE | 2020-06-20 21:34 | PN ---
Teaching Attending Note Name of Resident: Jeff Mariscal ATTENDING PHYSICIAN STATEMENT I saw and evaluated the patient. I reviewed the resident's note and discussed the case with the resident. I agree with the resident's findings and plan as documented. SUBJECTIVE: Patient is a 25 year old man with a PMH of Polysubstance abuse (IV Heroin, Xa nax, Cocaine) PTSD, Hepatitis C infection and Tobacco use presenting from Detox at [facility] due to an abscess in his right antecubital fossa. He reports that he had the abscess drained three times in the past 3 days at [facility]. He was put on PO Clindamycin but the pain and swelling has been getting worse in the past 24 hours along with increased redness up spreading out from the site. Patient is undomiciled and unemployed. Patient denies chest pain, shortness of breath, abdominal pain, headache, palpitations, dizziness, fever, chills, nausea, vomiting, diarrhea, constipation, dysuria, frequency, urgency, melena, hematochezia or hematuria. Denies alcohol, tobacco or illicit drug use. No sick contacts or recent travels. Family history is unremarkable. OBJECTIVE: Alert Vital Signs Period Temp Pulse Resp BP Sys/Gonzales Pulse Ox Last 24 Hr 98.3 F 70 16 136/82 100 HEENT: No Jaundice, eye redness or discharge, PERRLA, EOMI. Normocephalic, atraumatic. External ears are normal and hearing is grossly intact. No nasal discharge. Neck: Supple, nontender. No palpable adenopathy or thyromegaly. No JVD Chest: Good effort. Clear to auscultation and percussion. Heart: Regular. No S3, rub or murmur Abdomen: Not distended, soft, nontender and no HSM. No rebound or guarding. Normal bowel sounds. Ext: Peripheral pulses intact. No leg edema. Abscess with purulent drainage on the right antecubital fossa drained; tender and warm. Skin: Warm and dry. No petechiae, rash or ecchymosis. Neuro: Alert. Oriented x3. CN 2-12 grossly intact. Sensation grossly intact in all four extremities and DTR are symmetric. Psych: Appropriate mood and affect. Good insight. Home Medications Medication Instructions Recorded NK [No Known Home Medication] 06/19/20 Abnormal Lab Results 06/20/20 06/20/20 20:20 20:20 WBC 10.8 H Eosinophils % 6.0 H Albumin 3.2 L Current Medications Generic Name Dose Route Start Last Admin Trade Name Dolores PRN Reason Stop Dose Admin Enoxaparin Sodium 40 mg 06/20/20 21:30 06/20/20 21:49 Lovenox - SQ 40 mg DAILY SABAS Administration Sodium Chloride 1,000 mls @ 75 mls/hr 06/20/20 21:30 06/20/20 21:49 Normal Saline - IV 75 mls/hr ASDIR SABAS Administration Methadone HCl 10 mg 06/21/20 09:00 Dolophine - PO 06/21/20 09:01 ONCE ONE ASSESSMENT AND PLAN: 1. RUE Cellultis/Abscess - Will get a CT scan of RUE to evaluate extent of abscess and presence of gas. Will consult ID and Surgery, treat with IV Vancomycin, IV NS and use Tylenol for pain control. Will get HIV test, hepatitis serology and further workup for recent positive RPR. Viral testing for COVID-19 ordered and patient placed on airborne, droplet and contact isolation. EKG shows NSR at 69/minute and QTc [address]-T wave changes. Consult refuse and recycling worker to assist with his living situation. Will continue comprehensive care for all of patients comorbid conditions. 2. Illicit drug abuse - Will monitor closely for drug withdrawal ang give Methadone tomorrow as part of his Detox. Do neurochecks. Implement seizure, fall and aspiration precautions. Monitor and replete electrolytes (Ca,Mg,K,P). Counseled patient about abstaining from illicit drugs. Will consult career information specialist and refer to drug detox upon discharge. 3. Hypoalbuminemia - Possibly due to combined effects of malnutrition and inflammation associated with comorbid conditions. Will ensure adequate dietary protein intake and also consult senior sas developer. Urinalysis pending. 4. Tobacco Use Counseled on risks associated with tobacco use. We will provide patient all the necessary assistance to facilitate smoking cessation and prescribe Nicotine patch. 5. DVT prophylaxis - Lovenox 40 mg SQ q 24 hours. 6. Advance directives - Full code
[2020-06-20] MEDS ORDERED: diazePAM 5 MG TABLET ONE (21:42)
[2020-06-20] MEDS ORDERED: ENOXAPARIN NA (PORCINE) 40 MG/0.4 ML DISP.SYRIN SQ ONE (21:42)
[2020-06-20] MEDS: ENOXAPARIN NA (PORCINE) 40 MG/0.4 ML DISP.SYRIN SQ SCH (21:49)
[2020-06-20 22:01] LABS: ALBUMIN 3.2 g/dl (3.4-5.0); BILIRUBIN,TOTAL 0.2 mg/dL (0.2-1); BLOOD UREA NITROGEN 13.5 mg/dL (7-18); CALCIUM 8.6 mg/dL (8.5-10.1); CREATININE 0.7 mg/dL (0.55-1.3); POTASSIUM 4.6 mmol/L (3.5-5.1); TOT PROT 7.7 g/dl (6.4-8.2)
[2020-06-21] MEDS ORDERED: VANCOMYCIN 1,250 MG in DEXTROSE 5%-WATER - 250 ML IVPB SCH (00:15)
[2020-06-21] MEDS ORDERED: VANCOMYCIN HCL 1,250 MG in DEXTROSE 5%-WATER - 250 ML IVPB SCH (00:30)
[2020-06-21] MEDS: ACETAMINOPHEN 325 MG TABLET (FP) PO PRN (02:33)
--- NOTE | 2020-06-21 04:33 | HP ---
CHIEF COMPLAINT: worsening redness and pain of R arm abscess PCP: none HISTORY OF PRESENT ILLNESS: Pt is a 25 yo M with a PMH of Polysubstance Abuse (IV heroin, cocaine, xanax) and Hepatitis C infection presenting from [facility] (after detox day 2) due to worsening redness and 7/10 dull pain associated with an abscess at his R antecubital fossa. Pt reports noticing increased redness and swelling at the site of his IV heroin use 4 days ago. Since then, per the patient, he has been to [facility] three times and the abscess has been drained and he has been given PO clindamycin with no improvement. The abscess worsened in the last 24 hours with increased pain and redness. Denies fevers, chills, numbness, diarrhea, constipation, nausea, vomiting, SOB, chest pain, or headaches. ER course was notable for: (1)Bedside ultrasound showing 2 pockets of fluid with a connecting tract. (2)Abscess was drained and packed. (3)IV clindamycin, morphine, and valium given Recent Travel: None Sick Contacts: none PAST MEDICAL HISTORY: As per HPI. Also with hx of PTSD. PAST SURGICAL HISTORY: orthopedic intervention for broken foot in 2016 Family Hx - unremarkable Social History: Pt is undomiciled and unemployed. Smokin/2 ppd x 5 years Alcohol: denies Drugs: heroin ("on and off" for last 10 years; was clean for last 6 months but relapses 1 month ago); cocaine (refused to specify); xanax (refused to specify) Sexual History: Hx of unprotected sex with 2 females partners in the last 6 months. Hx of chlamidya 3 years ago - was treated. History of Hep C, resolved on own - per pt. Allergies haloperidol Allergy (Severe, Verified 06/20/20 18:48) Difficulty Breathing experienced seizure haloperidol Allergy (Severe, Uncoded 06/20/20 18:48) Seizure HOME MEDICATIONS: Home Medications Medication Instructions Recorded NK [No Known Home Medication] 06/19/20 REVIEW OF SYSTEMS As per HPI. PHYSICAL EXAMINATION Vital Signs - 24 hr 06/20/20 06/20/20 06/20/20 18:46 20:58 21:00 Temperature 98.3 F Pulse Rate 70 Pulse Rate [ Left] Respiratory 16 16 Rate Blood Pressure 136/82 Blood Pressure [Left Arm] O2 Sat by Pulse 100 95 100 Oximetry (%) 07/30/20 07/30/20 07/31/20 21:51 22:43 02:00 Temperature 99.3 F 99.9 F H Pulse Rate 72 81 Pulse Rate [ 76 Left] Respiratory 16 16 20 Rate Blood Pressure 142/79 139/84 Blood Pressure 118/74 [Left Arm] O2 Sat by Pulse 95 100 97 Oximetry (%) GENERAL: Awake, alert, and fully oriented, in no acute distress. Mild discomfort. Mildly agitated. HEAD: NCAT EYES: PERRLA, EOMI, sclera white, conjunctiva clear. EARS, NOSE, THROAT: Oropharynx clear without exudates. Moist mucous membranes. NECK: Normal range of motion, supple without lymphadenopathy, or masses. LUNGS: Breath sounds equal, clear to auscultation bilaterally. No wheezes, and no crackles. No accessory muscle use. HEART: Regular rate and rhythm, normal S1 and S2 without murmur, rub or gallop. ABDOMEN: Soft, nontender, not distended, normoactive bowel sounds. MUSCULOSKELETAL: Moving all extremities except RUE (location of abscess) spontaneously and equally. UPPER EXTREMITIES: 2+ pulses, warm, well-perfused. R antecubital fossa with dressing s/p I&D in the ED. Pt refused further evaluation of RUE abscess. LOWER EXTREMITIES: 2+ pulses, warm, well-perfused. No peripheral edema. NEUROLOGICAL: Cranial nerves II-XII intact. Normal speech. SKIN: Warm, dry, normal turgor, no rashes or lesions noted; no macuolopapular rashes noted on upper or lower extrimites GENITAL: pt refused genital exam for syphilis evaluation Laboratory Results - last 24 hr 06/20/20 06/20/20 20:20 20:20 WBC 10.8 H RBC 4.77 Hgb 13.6 Hct 40.7 MCV 85.4 MCH 28.6 MCHC 33.5 RDW 12.9 Plt Count 219 MPV 8.5 Absolute Neuts (auto) 6.5 Neutrophils % 60.3 Lymphocytes % 23.3 Monocytes % 9.8 Eosinophils % 6.0 H Basophils % 0.6 Nucleated RBC % 0 Sodium 137 Potassium 4.6 Chloride 103 Carbon Dioxide 26 Anion Gap 9 BUN 13.5 Creatinine 0.7 Est GFR (CKD-EPI)AfAm 150.95 Est GFR (CKD-EPI)NonAf 130.24 Random Glucose 91 Calcium 8.6 Total Bilirubin 0.2 AST 24 ALT 22 Alkaline Phosphatase 93 Total Protein 7.7 Albumin 3.2 L ASSESSMENT/PLAN: Pt is a 25 yo M with PMH of polysubstance abuse presenting with worsening redness and pain for RUE cellulitis/abscess. Examination and workup significant for: [id number] abscess at R antecubital fossa with increased erythema; RPR +. Pt being admitted for treatment of RUE cellulitis/abscess. #RUE Cellulitis/Abscess 2/2 IV drug use - f/u blood cx - IV Vancomycin - CT scan of RUE to evaluate extent of abscess and presence of gas (r/o nec fasc) - ID consulted - Surgery consult for I&D of pt's abscess - IVF with NS @ 75 cc/hr - Tylenol prn; Motrin prn for now as pt reports his pain is better managed with Motrin #Possible Syphyllis (RPR+) Initial examination not significant for any findings of symptomatic syphilis; if dx confirmed, pt may have early latent syphilis - FTA ordered - ID consulted - HIV test ordered - Hepatitis serology ordered #Polysubstance Abuse COWS score 1 Recently at [facility]; completed day 2 of his deox - methadone 10 on 06/21; methadone 5 on 06/22 - Dr. Ortega from [facility] consulted - Refer to drug detox upon discharge - facilitate any assistance with smoking cessation; nicotine patch if necessary #Hypoalbuminemia likely 2/2 malnutrition and inflammation from comorbid conditions - f/u UA - consult assistant to the ceo #DVT PPx - Lovenox 40 mg SQ daily #FEN - F - NS @ 75 cc/hr - E - monitor lytes; replete PRN - N - NPO for now; can advance to diet Visit type - Emergency Visit Emergency Visit: Yes ED Registration Date: 06/20/20 Care time: The patient presented to the Emergency Department on the above date and was hospitalized for further evaluation of their emergent condition. - New Patient This patient is new to me today: Yes Date on this admission: 06/21/20 - Critical Care Critical Care patient: No ATTENDING PHYSICIAN STATEMENT I saw and evaluated the patient. I reviewed the resident's note and discussed the case with the resident. I agree with the resident's findings and plan as documented. SUBJECTIVE: OBJECTIVE: ASSESSMENT AND PLAN:
[2020-06-21] MEDS: IBUPROFEN 600 MG TABLET (FP) PO PRN ×2 (05:34→18:12)
[2020-06-21 07:33] LABS: HEMATOCRIT 37.4 % (35.4-49); HEMOGLOBIN 12.5 GM/dL (11.7-16.9); MCHC 33.4 g/dl (32.0-35.9); MEAN PLT VOLUME 8.6 fl (7.5-11.1); PLATELET COUNT 218 K/MM3 (134-434); RBC 4.45 M/mm3 (4.00-5.60); RDW 12.7 % (11.9-15.9); WHITE BLOOD COUNT 10.5 K/mm3 (4.0-10.0)
--- NOTE | 2020-06-21 07:49 | CONSULT ---
Consult Detox [facility] Reason for Current Admission/Consult: Opioid Dependence Referred by:: eliot wells - History History of Present Illness: Chief Complaint: Patient is a 25 year old man who presents for detox from heroin as 'he does not want to use anymore'. History of Present Illness: CC: Patient is a 25 year old man who presents for detox from heroin as 'he does not want to use anymore'. He was previously at [facility] from 12/11/19 to 12/16/19 during which he completed detox but relapsed 6 weeks ago. He was in [facility] for one day on methadone detox protocol when his abscess appeared more indurated and erythematous despite being on Clindamycin of 450mg total daily. 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) Abscess on R forearm (appeared 06/15/20): was seen at [facility] 06/18/20, and the abscess was drained, he was put on Clindamycin PSH: Surgery for broken right foot 2016 Psych: PTSD Social History: Homeless Legal: None - History Source History Provided By: Medical Record Limitations to Obtaining History: No Limitations - Alcohol/Substance Use Hx Alcohol Use: No Hx Substance Use: Yes Hx Substance Use Treatment: Yes (Prior treatment detoxes with failure) - Past Medical History Musculoskeletal: Yes: Other (Right Arm abscess and radial nerve palsy) - Past Surgical History Additional Surgical History: I&D of Right arm abscess 4 weeks ago - Significant Medical Findings: ER course was notable for: (1)Bedside ultrasound showing 2 pockets of fluid with a connecting tract. (2)Abscess was drained and packed. (3)IV clindamycin, morphine, and valium given Recent Travel: None Sick Contacts: none PAST MEDICAL HISTORY: As per HPI. Also with hx of PTSD. PAST SURGICAL HISTORY: orthopedic intervention for broken foot in 2016 Family Hx - unremarkable Social History: Pt is undomiciled and unemployed. Smokin/2 ppd x 5 years Alcohol: denies Drugs: heroin ("on and off" for last 10 years; was clean for last 6 months but relapses 1 month ago); cocaine (refused to specify); xanax (refused to specify) Sexual History: Hx of unprotected sex with 2 females partners in the last 6 months. Hx of chlamidya 3 years ago - was treated. History of Hep C, resolved on own - per pt. Allergies Assessment Plan - Diagnosis (1) Abscess of right upper extremity Status: Acute (2) Opioid dependence with withdrawal Status: Acute (3) Cocaine use disorder Status: Chronic (4) IVDU (intravenous drug user) Status: Chronic (5) Nicotine dependence Status: Chronic (6) Opioid dependence, uncomplicated Status: Chronic - Plan Plan: 1. Opioid Dependence: Patient may continue methadone detox protocol from day 2 on He had only received the first dose of methadone at [facility] prior to transfer to [facility]. When medically stable he can either be transferred back to [facility] or if he completes detox there, he can be transferred back for rehab. This case was discussed with resident. 2. Right Arm Abscess: I&D by orthopedics....continue to observe and continue antibiotics. 3. STD: Agree with resident that he must be treated for Syphillis as this RPR is new and had no prior treatment. Follow with ID as to partner notification and referral for treatment if possible. DR. Ortega
[2020-06-21 07:53] LABS: BILIRUBIN,TOTAL 0.6 mg/dL (0.2-1); BLOOD UREA NITROGEN 7.8 mg/dL (7-18); CALCIUM 8.7 mg/dL (8.5-10.1); CREATININE 0.6 mg/dL (0.55-1.3); MAGNESIUM 1.8 mg/dL (1.8-2.4); PHOSPHOROUS 4.4 mg/dL (2.5-4.9); TOT PROT 7.2 g/dl (6.4-8.2)
[2020-06-21] MEDS ORDERED: METHADONE HCL 10 MG TABLET PO ONE ×3 (09:00→15:00)
--- NOTE | 2020-06-21 09:30 | CONSULT ---
- Consultation REQUESTING PROVIDER: Milton Reinoso - General Surgery CONSULT REQUEST: We have been asked to surgically evaluate this patient for RUE AC abscess PCP: Conrad French MD HPI: Called to eval 25 yo male with h/o polysubstance abuse (IV heroin, cocaine, xanax) and Hep C. Presents to [facility] ED from [facility] (after detox day 2) due to worsening redness and 7/10 dull pain associated with an abscess at his R antecubital fossa (after using IV Heroin). Reports this isn't the first time this has happened. Treated at [facility] three times and the abscess has been drained and he has been given PO clindamycin with no improvement. The abscess worsened in the last 24 hours with increased pain and redness. Denies fevers, chills, numbness, diarrhea, constipation, nausea, vomiting, SOB, chest pain, or headaches. Bedside ultrasound performed by ED identified 2 pockets of fluid with a connecting tract. Abscess was drained and packed in the ED. Started on IV clindamycin, morphine. PMHx: Polysubstance abuse (heroin, cocaine, xanax), Hep C, Chlamydia PSHx: orthopedic intervention for broken foot in 2016 Home Medications Medication Instructions Recorded NK [No Known Home Medication] 06/19/20 Allergies Allergy/AdvReac Type Severity Reaction Status Date / Time haloperidol Allergy Severe Difficulty Verified 06/20/20 18:48 Breathing haloperidol Allergy Severe Uncoded 06/20/20 18:48 REVIEW OF SYSTEMS: 12 system review conducted and considered negative except for what's contained in the HPI PE: GENERAL: a&o. nad. HEAD: Normal with no signs of trauma. EYES: PERRL, sclera anicteric, conjunctiva clear. NECK: Normal ROM, supple without lymphadenopathy, JVD, or masses. LUNGS: unlabored respiratins on room air HEART: rrr ABDOMEN: Soft, nontender, not distended UPPER EXTREMITIES: RUE swelling. AC with open wound (s/p I&D in the ED), wound packed. Warm. TTP. Radial pulse 2+ LOWER EXTREMITIES: 2+ pulses, warm, well-perfused. No calf tenderness. No peripheral edema. Vital Signs Temperature 98.6 F 06/21/20 06:00 Pulse Rate 65 06/21/20 06:00 Respiratory Rate 20 06/21/20 06:00 Blood Pressure 148/93 06/21/20 06:00 O2 Sat by Pulse Oximetry (%) 98 06/21/20 06:00 Lab Results WBC 10.5 K/mm3 (4.0-10.0) H 06/21/20 06:50 RBC 4.45 M/mm3 (4.00-5.60) 06/21/20 06:50 Hgb 12.5 GM/dL (11.7-16.9) 06/21/20 06:50 Hct 37.4 % (35.4-49) 06/21/20 06:50 MCV 84.0 fl (80-96) 06/21/20 06:50 MCHC 33.4 g/dl (32.0-35.9) 06/21/20 06:50 RDW 12.7 % (11.9-15.9) 06/21/20 06:50 Plt Count 218 K/MM3 (134-434) 06/21/20 06:50 Sodium 137 mmol/L (136-145) 06/21/20 06:50 Potassium 4.0 mmol/L (3.5-5.1) 06/21/20 06:50 Chloride 102 mmol/L (98-107) 06/21/20 06:50 Carbon Dioxide 26 mmol/L (21-32) 06/21/20 06:50 Anion Gap 9 MMOL/L (8-16) 06/21/20 06:50 BUN 7.8 mg/dL (7-18) 06/21/20 06:50 Creatinine 0.6 mg/dL (0.55-1.3) 06/21/20 06:50 Random Glucose 82 mg/dL (74-106) 06/21/20 06:50 Calcium 8.7 mg/dL (8.5-10.1) 06/21/20 06:50 Problem List - Problems (1) Abscess of right upper extremity Assessment/Plan: f/u RUE CT RUE elevation IV ABX ID Consult f/u wound culture Daily wound packing with iodoform Above discussed with Dr. Reinoso and agrees Code(s): L02.413 - CUTANEOUS ABSCESS OF RIGHT UPPER LIMB (2) Cocaine use disorder Code(s): F14.10 - COCAINE ABUSE, UNCOMPLICATED (3) IVDU (intravenous drug user) Code(s): F19.90 - OTHER PSYCHOACTIVE SUBSTANCE USE, UNSPECIFIED, UNCOMPLICATED (4) Nicotine dependence Code(s): F17.200 - NICOTINE DEPENDENCE, UNSPECIFIED, UNCOMPLICATED Visit type - Case Type Case Type: ED Admission - Emergency Emergency Visit: Yes ED Registration Date: 06/20/20 Care time: The patient presented to the Emergency Department on the above date and was hospitalized for further evaluation of their emergent condition. - New patient This patient is new to me today: Yes Date on this admission: 06/21/20
--- NOTE | 2020-06-21 10:21 | CON.ID ---
Consult Consult Specialty:: infectious diseases Referred by:: hospitalist Reason for Consultation:: abscess of the rt arm,drug abuse - History of Present Illness Chief Complaint: pain and abscess of the rt arm History of Present Illness: 25 yo male with h/o polysubstance abuse (IV heroin, cocaine, xanax) and Hep C. Presents to [facility] ED from [facility] (after detox day 2) due to worsening redness and 7/10 dull pain associated with an abscess at his R antecubital fossa (after using IV Heroin). Reports this isn't the first time this has happened. Treated at [facility] three times and the abscess has been drained and he has been given PO clindamycin with no improvement. The abscess worsened in the last 24 hours with increased pain and redness. Denies fevers, chills, numbness, diarrhea, constipation, nausea, vomiting, SOB, chest pain, or headaches. Bedside ultrasound performed by ED identified 2 pockets of fluid with a connecting tract. Abscess was drained and packed in the ED. Started on IV clindamycin, morphine. - History Source History Provided By: Patient, Medical Record Limitations to Obtaining History: No Limitations - Past Medical History Musculoskeletal: Yes: Other (Right Arm abscess and radial nerve palsy) - Past Surgical History Additional Surgical History: I&D of Right arm abscess 4 weeks ago - Alcohol/Substance Use Hx Alcohol Use: No History of Substance Use: reports: Cocaine, Heroin - Smoking History Smoking history: Unknown if ever smoked Have you smoked in the past 12 months: Yes Aproximately how many cigarettes per day: 10 - Social History ADL: Independent Occupation: Currently unemployed. History of Recent Travel: No Home Medications - Allergies Allergies/Adverse Reactions: Allergies Allergy/AdvReac Type Severity Reaction Status Date / Time haloperidol Allergy Severe Difficulty Verified 06/20/20 18:48 Breathing haloperidol Allergy Severe Uncoded 06/20/20 18:48 - Home Medications Home Medications: Ambulatory Orders NK [No Known Home Medication] 06/19/20 Review of Systems - Review of Systems Constitutional: reports: No Symptoms Eyes: reports: No Symptoms HENT: reports: No Symptoms Neck: reports: No Symptoms Cardiovascular: reports: No Symptoms Respiratory: reports: No Symptoms Gastrointestinal: reports: No Symptoms Genitourinary: reports: No Symptoms Musculoskeletal: reports: Other Integumentary: reports: Erythema, Wound, Other Neurological: reports: No Symptoms Endocrine: reports: No Symptoms Hematology/Lymphatic: reports: No Symptoms Psychiatric: reports: No Symptoms Physical Exam Vital Signs: Vital Signs Temperature 98.6 F 06/21/20 06:00 Pulse Rate 65 06/21/20 06:00 Respiratory Rate 20 06/21/20 06:00 Blood Pressure 148/93 06/21/20 06:00 O2 Sat by Pulse Oximetry (%) 98 06/21/20 06:00 Constitutional: Yes: Well Nourished, Calm, Mild Distress Eyes: Yes: Conjunctiva Clear HENT: Yes: Atraumatic, Normocephalic Neck: Yes: Supple, Trachea Midline Cardiovascular: Yes: Regular Rate and Rhythm Respiratory: Yes: Regular, CTA Bilaterally Gastrointestinal: Yes: Normal Bowel Sounds, Soft Musculoskeletal: Yes: Other (fracture of rt hand) Extremities: Yes: Other (rt arm abscess,fracture of rt arm) Integumentary: Yes: Erythema, Other (abscess) Wound/Incision: Yes: Draining, Other Neurological: Yes: Alert, Oriented Psychiatric: Yes: Alert, Oriented Labs: CBC, BMP 06/21/20 06:50 06/21/20 06:50 Imaging - Results Cat Scan: Image Reviewed Assessment/Plan this patient with drug abuse and abscess formation with fracture of the hand and nerve palsy with partial drained abscess admitted awaiting for ct scan results i zhang switched to zosyn and vanco please send cx from the wound will see what ct shows and decide further plan surgery on case rest as per the team
[2020-06-21] MEDS: ENOXAPARIN NA (PORCINE) 40 MG/0.4 ML DISP.SYRIN SQ SCH (10:30)
[2020-06-21] MEDS ORDERED: DEXTROSE 5%-WATER - 50 ML IVPB ONE ×2 (11:34→17:47)
[2020-06-21] MEDS ORDERED: PIPERACILLIN/TAZOBACTAM 3.375 GM VIAL IVPB ONE ×2 (11:34→17:47)
[2020-06-21] MEDS: PIPERACILLIN/TAZOB 3.375 GM 3.375 GM in DEXTROSE 5%-WATER - 50 ML IVPB SCH ×2 (11:53→18:12)
[2020-06-21] MEDS: VANCOMYCIN HCL 1,500 MG in DEXTROSE 5%-WATER - 500 ML IVPB SCH (11:54)
--- NOTE | 2020-06-21 12:55 | EKG ---
Test Reason : Blood Pressure : / mmHG Vent. Rate : 068 BPM Atrial Rate : 068 BPM P-R Int : 152 ms QRS Dur : 102 ms QT Int : 404 ms P-R-T Axes : 054 066 033 degrees QTc Int : 429 ms NORMAL SINUS RHYTHM EARLY REPOLARIZATION WHEN COMPARED WITH ECG OF 14-NOV-2019 17:22, NO SIGNIFICANT CHANGE WAS FOUND Confirmed by MIKE CARIAS MD ([id number]) on 06/21/2020 12:54:56 PM Referred By: Confirmed By:MIKE CARIAS MD
--- NOTE | 2020-06-21 14:13 | PN ---
Physical Exam: SUBJECTIVE: Patient seen and examined OBJECTIVE: Vital Signs Temperature 98.6 F 06/21/20 06:00 Pulse Rate 65 06/21/20 06:00 Respiratory Rate 20 06/21/20 06:00 Blood Pressure 148/93 06/21/20 06:00 O2 Sat by Pulse Oximetry (%) 98 06/21/20 06:00 GENERAL: The patient is awake, alert, and fully oriented, in no acute distress. NECK:full range of motion, supple. LUNGS: Breath sounds equal, clear to auscultation bilaterally HEART: Regular rate and rhythm, S1, S2 ABDOMEN: Soft, nontender, nondistended, normoactive bowel sounds EXTREMITIES: 2+ pulses, warm, well-perfused, no edema. RUE: antecubital fossa with dressing s/p I&D in the ED. Pt refused exam. SKIN: Warm, dry, normal turgor Laboratory Results - last 24 hr 06/20/20 06/20/20 06/21/20 20:20 20:20 06:50 WBC 10.8 H 10.5 H RBC 4.77 4.45 Hgb 13.6 12.5 Hct 40.7 37.4 MCV 85.4 84.0 MCH 28.6 28.0 MCHC 33.5 33.4 RDW 12.9 12.7 Plt Count 219 218 MPV 8.5 8.6 Absolute Neuts (auto) 6.5 Neutrophils % 60.3 Lymphocytes % 23.3 Monocytes % 9.8 Eosinophils % 6.0 H Basophils % 0.6 Nucleated RBC % 0 Sodium 137 Potassium 4.6 Chloride 103 Carbon Dioxide 26 Anion Gap 9 BUN 13.5 Creatinine 0.7 Est GFR (CKD-EPI)AfAm 150.95 Est GFR (CKD-EPI)NonAf 130.24 Random Glucose 91 Calcium 8.6 Phosphorus Magnesium Total Bilirubin 0.2 AST 24 ALT 22 Alkaline Phosphatase 93 C-Reactive Protein Total Protein 7.7 Albumin 3.2 L 06/21/20 06:50 WBC RBC Hgb Hct MCV MCH MCHC RDW Plt Count MPV Absolute Neuts (auto) Neutrophils % Lymphocytes % Monocytes % Eosinophils % Basophils % Nucleated RBC % Sodium 137 Potassium 4.0 Chloride 102 Carbon Dioxide 26 Anion Gap 9 BUN 7.8 Creatinine 0.6 Est GFR (CKD-EPI)AfAm 160.83 Est GFR (CKD-EPI)NonAf 138.76 Random Glucose 82 Calcium 8.7 Phosphorus 4.4 Magnesium 1.8 Total Bilirubin 0.6 AST 19 ALT 20 Alkaline Phosphatase 72 C-Reactive Protein 12.4 H Total Protein 7.2 Albumin 3.0 L Active Medications Generic Name Dose Route Start Last Admin Trade Name Freq PRN Reason Stop Dose Admin Acetaminophen 650 mg 06/21/20 02:09 06/21/20 02:33 Tylenol - PO 650 mg Q6H PRN Administration Fever Or Pain 6-10 Clonidine 0.1 mg 06/21/20 11:33 Catapres - PO BID PRN WITHDRAWAL(CONT SUBST) Enoxaparin Sodium 40 mg 06/20/20 21:30 06/21/20 10:30 Lovenox - SQ 40 mg DAILY SABAS Administration Sodium Chloride 1,000 mls @ 75 mls/hr 06/20/20 21:30 06/20/20 21:49 Normal Saline - IV 75 mls/hr ASDIR SABAS Administration Vancomycin HCl 1,500 mg/ 500 mls @ 250 mls/hr 06/21/20 12:00 06/21/20 11:54 Dextrose IVPB 250 mls/hr Q24H SABAS Administration Protocol Piperacillin Sod/Tazobactam 50 mls @ 100 mls/hr 06/21/20 10:45 06/21/20 11:53 Sod 3.375 gm/ Dextrose IVPB 100 mls/hr Q8H-IV SABAS Administration Protocol Ibuprofen 600 mg 06/21/20 03:24 06/21/20 05:34 Motrin - PO 600 mg Q6H PRN Administration PAIN LEVEL 6-10 Methadone HCl 5 mg 06/22/20 07:04 Dolophine - PO 06/22/20 07:05 ONCE ONE ASSESSMENT/PLAN: Patient is a 25 yo M with PMH of polysubstance abuse presenting with worsening redness and pain for RUE cellulitis/abscess. Examination and workup significant for: [id number] abscess at R antecubital fossa with increased erythema; RPR +. #RUE Cellulitis/Abscess 2/2 IV drug use - f/u blood cx - IV Vancomycin and Zosyn - CT scan of RUE: No soft tissue air accumulation is seen along the deep fascial planes. A Punctate focus of subcutaneous air is seen along the R elbow ventrally possibly on a postprocedural basis and prob less likely due to necrotizing cellulitis. Soft tissue edema along the elbow ventrally without obvious fluid collection. Concentric subcutaneous edema along length of visualized RUE. No CT evidence of osteomyelitis. - wound culture ordered. Not sent from ED. - ID (Dr. Salomon) consulted. Recommendations appreciated. - Surgery (Dr. Huitron) consulted. Recommendations appreciated. - Tylenol prn; Motrin prn for now as pt reports his pain is better managed with Motrin #Possible Syphilis (RPR+) - Initial examination not significant for any findings of symptomatic syphilis - FTA pending - ID consulted - HIV test pending - Hepatitis serology pending #Polysubstance Abuse - Recently at [facility]; completed day 2 of his detox - will continue detox - Dr. Ortega from [facility] consulted - Refer to drug detox upon discharge - facilitate any assistance with smoking cessation; nicotine patch if necessary #FEN - Not on any standing fluids - Electrolytes wnl, routine bmp monitoring - Regular diet #DVT PPx - Lovenox 40 mg SQ daily #Dispo - full code - med surg Visit type - Emergency Visit Emergency Visit: Yes ED Registration Date: 06/20/20 Care time: The patient presented to the Emergency Department on the above date and was hospitalized for further evaluation of their emergent condition. - New Patient This patient is new to me today: Yes Date on this admission: 06/21/20 - Critical Care Critical Care patient: No ATTENDING PHYSICIAN STATEMENT I saw and evaluated the patient. I reviewed the resident's note and discussed the case with the resident. I agree with the resident's findings and plan as documented. SUBJECTIVE: OBJECTIVE: ASSESSMENT AND PLAN:
[2020-06-21] MEDS ORDERED: METHADONE HCL 10 MG TABLET (FOR DETOX USE ONLY) PO ONE (14:23)
[2020-06-21 16:08] VITALS: BMI 23.0
--- NOTE | 2020-06-21 17:28 | ECHO ---
Version: 1 Name: TARIQ COVARRUBIAS Exam: Adult Echocardiogram Study Date: 06/21/2020, 4:15 PM Age: 25 Years MMode/2D Measurements & Calculations IVSd: 0.98 cm LVIDs: 3.3 cm LVIDd: 4.5 cm LVPWd: 1.20 cm LVOT diam: 2.35 cm Ao root diam: 3.1 cm LA dimension: 3.2 cm Doppler Measurements & Calculations MV E max josh: 62.1 cm/sec Med E/e': 5.9 MV A max josh: 48.5 cm/sec Med Peak E' Josh: 10.4 cm/sec MV E/A: 1.28 Lat E/e': 4.1 Lat Peak E' Josh: 15.2 cm/sec MR max P.6 mmHg Ao max P.4 mmHg Ao V2 max: 126.0 cm/sec TR max josh: 228.0 cm/sec TR max P.8 mmHg Left Ventricle The left ventricular size, thickness and function are normal. Ejection Fraction = 55-60%. The transm itral spectral Doppler flow pattern is normal for age. Right Ventricle The right ventricle is normal in size and function. Atria Normal left and right atrial size and function. Mitral Valve The mitral valve is normal in structure and function. There is no mitral valve stenosis. There is mi ld mitral regurgitation. Tricuspid Valve The tricuspid valve is normal in structure and function. There is mild tricuspid regurgitation. Aortic Valve The aortic valve opens well. No hemodynamically significant valvular aortic stenosis. No aortic regu rgitation is present. Pulmonic Valve The pulmonic valve is not well seen, but is grossly normal. There is no pulmonic valvular stenosis. Great Vessels The aortic root is normal size. Pericardium/Pleura There is no pericardial effusion. Summary Statements The left ventricular size, thickness and function are normal Ejection Fraction = 55-60%. The right ventricle is normal in size and function. There is mild mitral regurgitation. There is mild tricuspid regurgitation. The aortic root is normal size. There is no pericardial effusion. MD Low *Mannie 06/21/2020, 5:28 PM Ordering Physician: Ashlee Padron Performed By: Brinda Benton
[2020-06-22] MEDS ORDERED: DEXTROSE 5%-WATER - 50 ML IVPB ONE ×4 (02:47→23:16)
[2020-06-22] MEDS ORDERED: PIPERACILLIN/TAZOBACTAM 3.375 GM VIAL IVPB ONE ×4 (02:47→23:16)
[2020-06-22] MEDS: PIPERACILLIN/TAZOB 3.375 GM 3.375 GM in DEXTROSE 5%-WATER - 50 ML IVPB SCH ×3 (02:53→18:07)
[2020-06-22] MEDS: IBUPROFEN 600 MG TABLET (FP) PO PRN (02:53)
[2020-06-22] MEDS ORDERED: METHADONE HCL 5 MG TABLET PO ONE ×2 (07:00→07:04)
[2020-06-22 08:10] LABS: ALBUMIN 3.1 g/dl (3.4-5.0); BILIRUBIN,TOTAL 0.5 mg/dL (0.2-1); BLOOD UREA NITROGEN 12.5 mg/dL (7-18); CALCIUM 9.4 mg/dL (8.5-10.1); CREATININE 0.7 mg/dL (0.55-1.3); MAGNESIUM 2.2 mg/dL (1.8-2.4); POTASSIUM 4.8 mmol/L (3.5-5.1)
[2020-06-22 08:12] LABS: BASO % 0.8 % (0-2.0); EOS % 4.2 % (0-4.5); HEMATOCRIT 39.3 % (35.4-49); HEMOGLOBIN 13.2 GM/dL (11.7-16.9); LYMPH % 22.4 % (8-40); MCH 28.7 pg (25.7-33.7); MCHC 33.7 g/dl (32.0-35.9); MEAN CELL VOLUME 85.2 fl (80-96); MEAN PLT VOLUME 9.3 fl (7.5-11.1); NEUT % 62.6 % (42.8-82.8); PLATELET COUNT 255 K/MM3 (134-434); RBC 4.62 M/mm3 (4.00-5.60); RDW 12.9 % (11.9-15.9); WHITE BLOOD COUNT 9.5 K/mm3 (4.0-10.0)
[2020-06-22] MEDS: ENOXAPARIN NA (PORCINE) 40 MG/0.4 ML DISP.SYRIN SQ SCH (09:34)
[2020-06-22] MEDS: cloNIDine HCL 0.1 MG TABLET PO PRN (09:35)
[2020-06-22 10:16] LABS: ERYTHROCYTE SEDIMENTATION RATE 65 mm/hr (0-10)
[2020-06-22] MEDS: VANCOMYCIN HCL 1,500 MG in DEXTROSE 5%-WATER - 500 ML IVPB SCH (11:26)
--- NOTE | 2020-06-22 14:09 | PN ---
Teaching Attending Note Name of Resident: Ashlee Padron ATTENDING PHYSICIAN STATEMENT I saw and evaluated the patient. I reviewed the resident's note and discussed the case with the resident. I agree with the resident's findings and plan as documented. SUBJECTIVE: Patient seen and examined at bedside, admitted for R antecubital cellulitis, ?abscess d/t IVDA. VSS, cultures pending. OBJECTIVE: GENERAL: Awake, alert, and fully oriented, in no acute distress. Mild discomfort. Mildly agitated. HEAD: NCAT EYES: PERRLA, EOMI, sclera white, conjunctiva clear. EARS, NOSE, THROAT: Oropharynx clear without exudates. Moist mucous membranes. NECK: Normal range of motion, supple without lymphadenopathy, or masses. LUNGS: Breath sounds equal, clear to auscultation bilaterally. No wheezes, and no crackles. No accessory muscle use. HEART: Regular rate and rhythm, normal S1 and S2 without murmur, rub or gallop. ABDOMEN: Soft, nontender, not distended, normoactive bowel sounds. MUSCULOSKELETAL: Moving all extremities except RUE (location of abscess) spontaneously and equally. UPPER EXTREMITIES: 2+ pulses, warm, well-perfused. R antecubital fossa with dressing s/p I&D in the ED. Pt refused further evaluation of RUE abscess. LOWER EXTREMITIES: 2+ pulses, warm, well-perfused. No peripheral edema. NEUROLOGICAL: Cranial nerves II-XII intact. Normal speech. SKIN: Warm, dry, normal turgor, no rashes or lesions noted; no macuolopapular rashes noted on upper or lower extrimites GENITAL: pt refused genital exam for syphilis evaluation Vital Signs - 24 hr 06/21/20 06/21/20 06/21/20 15:08 18:32 21:00 Temperature 98.3 F 98.2 F Pulse Rate 63 64 Respiratory 20 18 20 Rate Blood Pressure 136/74 129/66 O2 Sat by Pulse 99 100 98 Oximetry (%) 06/21/20 06/22/20 06/22/20 21:35 02:00 06:41 Temperature 98.3 F 99 F 97.9 F Pulse Rate 65 68 57 L Respiratory 20 16 16 Rate Blood Pressure 121/65 135/68 116/65 O2 Sat by Pulse 98 97 96 Oximetry (%) 06/22/20 09:00 Temperature Pulse Rate Respiratory 18 Rate Blood Pressure O2 Sat by Pulse 98 Oximetry (%) Microbiology 06/20/20 20:20 Blood Culture - Preliminary Blood - Peripheral Venous Pending Organism 06/20/20 20:20 Blood Culture - Preliminary Blood - Peripheral Venous Pending Organism Laboratory Results - last 24 hr 06/21/20 06/22/20 06/22/20 06:50 06:58 06:58 WBC 9.5 RBC 4.62 Hgb 13.2 Hct 39.3 MCV 85.2 MCH 28.7 MCHC 33.7 RDW 12.9 Plt Count 255 MPV 9.3 Absolute Neuts (auto) 6.0 Neutrophils % 62.6 Lymphocytes % 22.4 Monocytes % 10.0 Eosinophils % 4.2 Basophils % 0.8 Nucleated RBC % 0 ESR 65 H Sodium 137 Potassium 4.8 Chloride 102 Carbon Dioxide 32 Anion Gap 4 L BUN 12.5 Creatinine 0.7 Est GFR (CKD-EPI)AfAm 150.95 Est GFR (CKD-EPI)NonAf 130.24 Random Glucose 80 Calcium 9.4 Magnesium 2.2 Total Bilirubin 0.5 AST 22 ALT 22 Alkaline Phosphatase 79 Total Protein 8.0 Albumin 3.1 L HIV 1&2 Ag/Ab, 4th Gen Non reactive Home Medications Medication Instructions Recorded NK [No Known Home Medication] 06/19/20 Current Medications Generic Name Dose Route Start Last Admin Trade Name Dolores PRN Reason Stop Dose Admin Acetaminophen 650 mg 06/21/20 02:09 06/21/20 02:33 Tylenol - PO 650 mg Q6H PRN Administration Fever Or Pain 6-10 Clonidine 0.1 mg 06/21/20 11:33 06/22/20 09:35 Catapres - PO 0.1 mg BID PRN Administration WITHDRAWAL(CONT SUBST) Enoxaparin Sodium 40 mg 06/20/20 21:30 06/22/20 09:34 Lovenox - SQ 40 mg DAILY SABAS Administration Vancomycin HCl 1,500 mg/ 500 mls @ 250 mls/hr 06/21/20 12:00 06/22/20 11:26 Dextrose IVPB 250 mls/hr Q24H SABAS Administration Protocol Piperacillin Sod/Tazobactam 50 mls @ 100 mls/hr 06/21/20 10:45 06/22/20 09:34 Sod 3.375 gm/ Dextrose IVPB 100 mls/hr Q8H-IV SABAS Administration Protocol Ibuprofen 600 mg 06/21/20 03:24 06/22/20 02:53 Motrin - PO 600 mg Q6H PRN Administration PAIN LEVEL 6-10 Methadone HCl 10 mg 06/23/20 06:00 Dolophine - PO 06/23/20 06:01 ONCE ONE Methadone HCl 5 mg 06/24/20 06:00 Dolophine - PO 06/24/20 06:01 ONCE ONE ASSESSMENT AND PLAN: 25 M R antecubital cellulitis, r/o abscess r/o endocarditis PSA Cocaine use Heroin h/o LSD/ecstacy use Nicotine dependence Hep C Plan: COnt Vanc/Zosyn w/ monitoring of trough Echo to r/o endocarditis (late systolic click on exam) Watch for withdrawal Methadone 15mg for dependence CT R elbow DVt ppx: Lovenox
--- NOTE | 2020-06-22 14:11 | PN ---
Physical Exam: SUBJECTIVE: Patient seen and examined at bedside, blood cx pre-li positive for gram+, on Vanco, no abscess on CT, echo negative for vegetations. Will need meterman abx. VSS. OBJECTIVE: GENERAL: Awake, alert, and fully oriented, in no acute distress. Mild discomfort. Mildly agitated. HEAD: NCAT EYES: PERRLA, EOMI, sclera white, conjunctiva clear. EARS, NOSE, THROAT: Oropharynx clear without exudates. Moist mucous membranes. NECK: Normal range of motion, supple without lymphadenopathy, or masses. LUNGS: Breath sounds equal, clear to auscultation bilaterally. No wheezes, and no crackles. No accessory muscle use. HEART: Regular rate and rhythm, normal S1 and S2 without murmur, rub or gallop. ABDOMEN: Soft, nontender, not distended, normoactive bowel sounds. MUSCULOSKELETAL: Moving all extremities except RUE (location of abscess) spontaneously and equally. UPPER EXTREMITIES: 2+ pulses, warm, well-perfused. R antecubital fossa with dressing s/p I&D in the ED. Pt refused further evaluation of RUE abscess. LOWER EXTREMITIES: 2+ pulses, warm, well-perfused. No peripheral edema. NEUROLOGICAL: Cranial nerves II-XII intact. Normal speech. SKIN: Warm, dry, normal turgor, no rashes or lesions noted; no macuolopapular rashes noted on upper or lower extrimites GENITAL: pt refused genital exam for syphilis evaluation Vital Signs - 24 hr 06/21/20 06/21/20 06/21/20 15:08 18:32 21:00 Temperature 98.3 F 98.2 F Pulse Rate 63 64 Respiratory 20 18 20 Rate Blood Pressure 136/74 129/66 O2 Sat by Pulse 99 100 98 Oximetry (%) 06/21/20 06/22/20 06/22/20 21:35 02:00 06:41 Temperature 98.3 F 99 F 97.9 F Pulse Rate 65 68 57 L Respiratory 20 16 16 Rate Blood Pressure 121/65 135/68 116/65 O2 Sat by Pulse 98 97 96 Oximetry (%) 06/22/20 09:00 Temperature Pulse Rate Respiratory 18 Rate Blood Pressure O2 Sat by Pulse 98 Oximetry (%) Microbiology 06/20/20 20:20 Blood Culture - Preliminary Blood - Peripheral Venous Pending Organism 06/20/20 20:20 Blood Culture - Preliminary Blood - Peripheral Venous Pending Organism Laboratory Results - last 24 hr 06/21/20 06/22/20 06/22/20 06:50 06:58 06:58 WBC 9.5 RBC 4.62 Hgb 13.2 Hct 39.3 MCV 85.2 MCH 28.7 MCHC 33.7 RDW 12.9 Plt Count 255 MPV 9.3 Absolute Neuts (auto) 6.0 Neutrophils % 62.6 Lymphocytes % 22.4 Monocytes % 10.0 Eosinophils % 4.2 Basophils % 0.8 Nucleated RBC % 0 ESR 65 H Sodium 137 Potassium 4.8 Chloride 102 Carbon Dioxide 32 Anion Gap 4 L BUN 12.5 Creatinine 0.7 Est GFR (CKD-EPI)AfAm 150.95 Est GFR (CKD-EPI)NonAf 130.24 Random Glucose 80 Calcium 9.4 Magnesium 2.2 Total Bilirubin 0.5 AST 22 ALT 22 Alkaline Phosphatase 79 Total Protein 8.0 Albumin 3.1 L HIV 1&2 Ag/Ab, 4th Gen Non reactive Home Medications Medication Instructions Recorded NK [No Known Home Medication] 06/19/20 Current Medications Generic Name Dose Route Start Last Admin Trade Name Freq PRN Reason Stop Dose Admin Acetaminophen 650 mg 06/21/20 02:09 06/21/20 02:33 Tylenol - PO 650 mg Q6H PRN Administration Fever Or Pain 6-10 Clonidine 0.1 mg 06/21/20 11:33 06/22/20 09:35 Catapres - PO 0.1 mg BID PRN Administration WITHDRAWAL(CONT SUBST) Enoxaparin Sodium 40 mg 06/20/20 21:30 06/22/20 09:34 Lovenox - SQ 40 mg DAILY SABAS Administration Vancomycin HCl 1,500 mg/ 500 mls @ 250 mls/hr 06/21/20 12:00 06/22/20 11:26 Dextrose IVPB 250 mls/hr Q24H SABAS Administration Protocol Piperacillin Sod/Tazobactam 50 mls @ 100 mls/hr 06/21/20 10:45 06/22/20 09:34 Sod 3.375 gm/ Dextrose IVPB 100 mls/hr Q8H-IV SABAS Administration Protocol Ibuprofen 600 mg 06/21/20 03:24 06/22/20 02:53 Motrin - PO 600 mg Q6H PRN Administration PAIN LEVEL 6-10 Methadone HCl 10 mg 06/23/20 06:00 Dolophine - PO 06/23/20 06:01 ONCE ONE Methadone HCl 5 mg 06/24/20 06:00 Dolophine - PO 06/24/20 06:01 ONCE ONE ASSESSMENT AND PLAN: 25 M R antecubital cellulitis Gram + bacteremia PSA Cocaine use Heroin h/o LSD/ecstacy use Nicotine dependence Hep C Plan: COnt Vanc/Zosyn w/ monitoring of trough Watch for withdrawal Methadone 15mg for dependence Will need meterman abx for bacteremia ID following follow syphilis workup DVt ppx: Lovenox Visit type - Emergency Visit Emergency Visit: Yes ED Registration Date: 06/20/20 Care time: The patient presented to the Emergency Department on the above date and was hospitalized for further evaluation of their emergent condition. - New Patient This patient is new to me today: No - Critical Care Critical Care patient: No - Discharge Referral Referred to [facility] Med P.C.: No
[2020-06-22 17:06] LABS: FLOURESCENT TREPONEMAL AB Reactive (Non Reactive)
--- NOTE | 2020-06-22 18:00 | PN ---
Progress Note, Physician History of Present Illness: Pt still with pain in RUE limiting movement. Otherwise no specific complaints. Temp of 99F currently. - Current Medication List Current Medications: Active Medications Acetaminophen (Tylenol -) 650 mg PO Q6H PRN PRN Reason: Fever Or Pain 6-10 Last Admin: 06/21/20 02:33 Dose: 650 mg Documented by: Clonidine (Catapres -) 0.1 mg PO BID PRN PRN Reason: WITHDRAWAL(CONT SUBST) Last Admin: 06/22/20 09:35 Dose: 0.1 mg Documented by: Enoxaparin Sodium (Lovenox -) 40 mg SQ DAILY SABAS Last Admin: 06/22/20 09:34 Dose: 40 mg Documented by: Vancomycin HCl 1,500 mg/ (Dextrose) 500 mls @ 250 mls/hr IVPB Q24H SABAS; Protocol Last Admin: 06/22/20 11:26 Dose: 250 mls/hr Documented by: Piperacillin Sod/Tazobactam (Sod 3.375 gm/ Dextrose) 50 mls @ 100 mls/hr IVPB Q8H-IV SABAS; Protocol Last Admin: 06/22/20 09:34 Dose: 100 mls/hr Documented by: Methadone HCl (Dolophine -) 10 mg PO ONCE ONE Stop: 06/23/20 06:01 Methadone HCl (Dolophine -) 5 mg PO ONCE ONE Stop: 06/24/20 06:01 - Objective Vital Signs: Vital Signs Temperature 99.0 F 06/22/20 15:20 Pulse Rate 61 06/22/20 15:20 Respiratory Rate 18 06/22/20 15:20 Blood Pressure 122/60 06/22/20 15:20 O2 Sat by Pulse Oximetry (%) 98 06/22/20 09:00 Constitutional: Yes: No Distress, Calm Cardiovascular: Yes: Regular Rate and Rhythm Respiratory: Yes: CTA Bilaterally Gastrointestinal: Yes: Normal Bowel Sounds, Soft Extremities: Yes: Erythema Wound/Incision: Yes: Other (RUE edema/mild erythema/+tenderness. drainage site dressing intact) Neurological: Yes: Alert, Oriented Labs: CBC, BMP 06/22/20 06:58 06/22/20 06:58 Laboratory Last Values WBC 9.5 K/mm3 (4.0-10.0) 06/22/20 06:58 RBC 4.62 M/mm3 (4.00-5.60) 06/22/20 06:58 Hgb 13.2 GM/dL (11.7-16.9) 06/22/20 06:58 Hct 39.3 % (35.4-49) 06/22/20 06:58 MCV 85.2 fl (80-96) 06/22/20 06:58 MCH 28.7 pg (25.7-33.7) 06/22/20 06:58 MCHC 33.7 g/dl (32.0-35.9) 06/22/20 06:58 RDW 12.9 % (11.9-15.9) 06/22/20 06:58 Plt Count 255 K/MM3 (134-434) 06/22/20 06:58 MPV 9.3 fl (7.5-11.1) 06/22/20 06:58 Absolute Neuts (auto) 6.0 K/mm3 (1.5-8.0) 06/22/20 06:58 Neutrophils % 62.6 % (42.8-82.8) 06/22/20 06:58 Lymphocytes % 22.4 % (8-40) 06/22/20 06:58 Monocytes % 10.0 % (3.8-10.2) 06/22/20 06:58 Eosinophils % 4.2 % (0-4.5) 06/22/20 06:58 Basophils % 0.8 % (0-2.0) 06/22/20 06:58 Nucleated RBC % 0 % (0-0) 06/22/20 06:58 ESR 65 mm/hr (0-10) H 06/22/20 06:58 Sodium 137 mmol/L (136-145) 06/22/20 06:58 Potassium 4.8 mmol/L (3.5-5.1) 06/22/20 06:58 Chloride 102 mmol/L (98-107) 06/22/20 06:58 Carbon Dioxide 32 mmol/L (21-32) 06/22/20 06:58 Anion Gap 4 MMOL/L (8-16) L 06/22/20 06:58 BUN 12.5 mg/dL (7-18) 06/22/20 06:58 Creatinine 0.7 mg/dL (0.55-1.3) 06/22/20 06:58 Est GFR (CKD-EPI)AfAm 150.95 06/22/20 06:58 Est GFR (CKD-EPI)NonAf 130.24 06/22/20 06:58 Random Glucose 80 mg/dL (74-106) 06/22/20 06:58 Calcium 9.4 mg/dL (8.5-10.1) 06/22/20 06:58 Phosphorus 4.4 mg/dL (2.5-4.9) 06/21/20 06:50 Magnesium 2.2 mg/dL (1.8-2.4) 06/22/20 06:58 Total Bilirubin 0.5 mg/dL (0.2-1) 06/22/20 06:58 AST 22 U/L (15-37) 06/22/20 06:58 ALT 22 U/L (13-61) 06/22/20 06:58 Alkaline Phosphatase 79 U/L (45-117) 06/22/20 06:58 C-Reactive Protein 12.4 MG/DL (0.00-0.3) H 06/21/20 06:50 Total Protein 8.0 g/dl (6.4-8.2) 06/22/20 06:58 Albumin 3.1 g/dl (3.4-5.0) L 06/22/20 06:58 T.pallidum Ab (FTA-ABS) Reactive (Non Reactive) H 06/21/20 06:50 HIV 1&2 Ag/Ab, 4th Gen Non reactive (Non Reactive) 06/21/20 06:50 Microbiology 06/20/20 20:20 Blood - Peripheral Venous Blood Culture - Preliminary Pending Organism 06/20/20 20:20 Blood - Peripheral Venous Blood Culture - Preliminary Pending Organism - ....Imaging Cat Scan: Report Reviewed Problem List - Problems (1) Abscess of right upper extremity Code(s): L02.413 - CUTANEOUS ABSCESS OF RIGHT UPPER LIMB (2) Opioid dependence with withdrawal Code(s): F11.23 - OPIOID DEPENDENCE WITH WITHDRAWAL (3) IVDU (intravenous drug user) Code(s): F19.90 - OTHER PSYCHOACTIVE SUBSTANCE USE, UNSPECIFIED, UNCOMPLICATED Assessment/Plan RUE antecubital abscess s/p I+D Gram + bacteremia Polysubstance abuse IVDU -- continue current antibiotics -- f/u blood culture isolates, repeat blood cultures -- ? wound cultures sent -- CT results noted -- Echo without any obvious vegetations -- wbc trended down, monitor temps -- monitor renal function, Vancomycin trough prior to 4th dose -- continue wound care
[2020-06-22] MEDS: ACETAMINOPHEN 325 MG TABLET (FP) PO PRN (18:08)
[2020-06-23] MEDS: PIPERACILLIN/TAZOB 3.375 GM 3.375 GM in DEXTROSE 5%-WATER - 50 ML IVPB SCH ×3 (00:55→17:40)
[2020-06-23] MEDS: ACETAMINOPHEN 325 MG TABLET (FP) PO PRN ×3 (01:33→17:38)
[2020-06-23] MEDS ORDERED: METHADONE HCL 10 MG TABLET PO ONE (06:00)
[2020-06-23] MEDS ORDERED: PIPERACILLIN/TAZOBACTAM 3.375 GM VIAL IVPB ONE ×2 (08:36→17:35)
[2020-06-23] MEDS ORDERED: DEXTROSE 5%-WATER - 50 ML IVPB ONE ×2 (08:36→17:36)
[2020-06-23] MEDS: ENOXAPARIN NA (PORCINE) 40 MG/0.4 ML DISP.SYRIN SQ SCH (09:04)
[2020-06-23] MEDS ORDERED: PT OWN MED DRAWER 7, Y5N ONE ×2 (09:17→11:55)
[2020-06-23] MEDS: VANCOMYCIN HCL 1,500 MG in DEXTROSE 5%-WATER - 500 ML IVPB SCH (12:05)
--- NOTE | 2020-06-23 13:18 | PN ---
Physical Exam: SUBJECTIVE: Patient seen and examined 06/23/20: Pt reports moderate amount of pain to his rue. Denies any fevers, chills, n/v. Requesting if we could hol doff on his methadone taper in light of his current illness OBJECTIVE: Vital Signs Period Temp Pulse Resp BP Sys/Gonzales Pulse Ox Last 24 Hr 97.9 F-99.0 F 50-61 16-18 107-131/60-74 97-99 GENERAL: The patient is awake, alert, and fully oriented, in no acute distress. HEAD: Normal with no signs of trauma. EYES: extraocular movements intact, sclera anicteric, conjunctiva clear. No ptosis. ENT: Ears normal, nares patent, oropharynx clear without exudates, moist mucous membranes. NECK: Trachea midline, full range of motion, supple. LUNGS: Breath sounds equal, clear to auscultation bilaterally, no wheezes, no crackles, no accessory muscle use. HEART: Regular rate and rhythm, S1, S2 without murmur, rub or gallop. ABDOMEN: Soft, nontender, nondistended, normoactive bowel sounds, no guarding, no rebound, no hepatosplenomegaly, no masses. EXTREMITIES: 2+ pulses, warm, well-perfused, POS RUE EDEMA, ERYTHEMA, DRESSING WITH SOME PURULENT DRAINAGE NEUROLOGICAL: Cranial nerves II through XII grossly intact. Normal speech, gait not observed. PSYCH: Normal mood, normal affect. SKIN: Warm, dry, normal turgor, no rashes or lesions noted Laboratory Results - last 24 hr 06/21/20 06:50 T.pallidum Ab (FTA-ABS) Reactive H Active Medications Generic Name Dose Route Start Last Admin Trade Name Freq PRN Reason Stop Dose Admin Acetaminophen 650 mg 06/21/20 02:09 06/23/20 12:07 Tylenol - PO 650 mg Q6H PRN Administration Fever Or Pain 6-10 Clonidine 0.1 mg 06/21/20 11:33 06/22/20 09:35 Catapres - PO 0.1 mg BID PRN Administration WITHDRAWAL(CONT SUBST) Enoxaparin Sodium 40 mg 06/20/20 21:30 06/23/20 09:04 Lovenox - SQ 40 mg DAILY SABAS Administration Vancomycin HCl 1,500 mg/ 500 mls @ 250 mls/hr 06/21/20 12:00 06/23/20 12:05 Dextrose IVPB 250 mls/hr Q24H SABAS Administration Protocol Piperacillin Sod/Tazobactam 50 mls @ 100 mls/hr 06/21/20 10:45 06/23/20 09:05 Sod 3.375 gm/ Dextrose IVPB 100 mls/hr Q8H-IV SABAS Administration Protocol Methadone HCl 10 mg 06/24/20 06:00 Dolophine - PO 06/24/20 06:01 ONCE ONE ASSESSMENT/PLAN: 25 M with hx of cociane, heroin abuse -- was in detox priro to admission, Hep C admitted with strep mitis bacteremia due to right antecubital abscess/cellulitis *Right antecubiatl cellulitis/ abscess - s/p i and d dressing changes ordered on vanc, zosyn strep mitis bactermia Will need assisted abx * Polysubstance abuse - is on methadone, will hold off on tapering for now cont at 10mg daily No withdrawal symptoms currently *syphilis pos - workup as per id COnt Vanc/Zosyn w/ monitoring of trough Watch for withdrawal Methadone 15mg for dependence Will need assisted abx for bacteremia ID following follow syphilis workup DVt ppx: Lovenox check electrolytes. cbc in am Problem List - Problems (1) Abscess of right upper extremity Code(s): L02.413 - CUTANEOUS ABSCESS OF RIGHT UPPER LIMB (2) Bacteremia Code(s): R78.81 - BACTEREMIA Visit type - Emergency Visit Emergency Visit: Yes ED Registration Date: 06/20/20 Care time: The patient presented to the Emergency Department on the above date and was hospitalized for further evaluation of their emergent condition. - New Patient This patient is new to me today: Yes Date on this admission: 06/23/20 - Critical Care Critical Care patient: No - Discharge Referral Referred to [facility] Med P.C.: No
--- NOTE | 2020-06-23 20:36 | PN ---
Progress Note, Physician History of Present Illness: Pt is alert, afebrile, without distress. Still with some tightness in RUE but less swelling. - Current Medication List Current Medications: Active Medications Acetaminophen (Tylenol -) 650 mg PO Q6H PRN PRN Reason: Fever Or Pain 6-10 Last Admin: 06/23/20 17:38 Dose: 650 mg Documented by: Clonidine (Catapres -) 0.1 mg PO BID PRN PRN Reason: WITHDRAWAL(CONT SUBST) Last Admin: 06/22/20 09:35 Dose: 0.1 mg Documented by: Enoxaparin Sodium (Lovenox -) 40 mg SQ DAILY [facility] Last Admin: 06/23/20 09:04 Dose: 40 mg Documented by: Vancomycin HCl 1,500 mg/ (Dextrose) 500 mls @ 250 mls/hr IVPB Q24H [facility]; Protocol Last Admin: 06/23/20 12:05 Dose: 250 mls/hr Documented by: Piperacillin Sod/Tazobactam (Sod 3.375 gm/ Dextrose) 50 mls @ 100 mls/hr IVPB Q8H-IV [facility]; Protocol Last Admin: 06/23/20 17:40 Dose: 100 mls/hr Documented by: Methadone HCl (Dolophine -) 10 mg PO ONCE ONE Stop: 06/24/20 06:01 - Objective Vital Signs: Vital Signs Temperature 98.3 F 06/23/20 17:00 Pulse Rate 58 L 06/23/20 17:00 Respiratory Rate 20 06/23/20 17:00 Blood Pressure 126/68 06/23/20 17:00 O2 Sat by Pulse Oximetry (%) 97 06/23/20 17:00 Constitutional: Yes: No Distress, Calm Eyes: Yes: Conjunctiva Clear Cardiovascular: Yes: Regular Rate and Rhythm Respiratory: Yes: Regular Gastrointestinal: Yes: Normal Bowel Sounds, Soft Genitourinary: Yes: WNL Wound/Incision: Yes: Other (RUE less erythema/edema, +tender with movement) Neurological: Yes: Alert, Oriented Labs: CBC, BMP 06/22/20 06:58 06/22/20 06:58 Laboratory Last Values WBC 9.5 K/mm3 (4.0-10.0) 06/22/20 06:58 RBC 4.62 M/mm3 (4.00-5.60) 06/22/20 06:58 Hgb 13.2 GM/dL (11.7-16.9) 06/22/20 06:58 Hct 39.3 % (35.4-49) 06/22/20 06:58 MCV 85.2 fl (80-96) 06/22/20 06:58 MCH 28.7 pg (25.7-33.7) 06/22/20 06:58 MCHC 33.7 g/dl (32.0-35.9) 06/22/20 06:58 RDW 12.9 % (11.9-15.9) 06/22/20 06:58 Plt Count 255 K/MM3 (134-434) 06/22/20 06:58 MPV 9.3 fl (7.5-11.1) 06/22/20 06:58 Absolute Neuts (auto) 6.0 K/mm3 (1.5-8.0) 06/22/20 06:58 Neutrophils % 62.6 % (42.8-82.8) 06/22/20 06:58 Lymphocytes % 22.4 % (8-40) 06/22/20 06:58 Monocytes % 10.0 % (3.8-10.2) 06/22/20 06:58 Eosinophils % 4.2 % (0-4.5) 06/22/20 06:58 Basophils % 0.8 % (0-2.0) 06/22/20 06:58 Nucleated RBC % 0 % (0-0) 06/22/20 06:58 ESR 65 mm/hr (0-10) H 06/22/20 06:58 Sodium 137 mmol/L (136-145) 06/22/20 06:58 Potassium 4.8 mmol/L (3.5-5.1) 06/22/20 06:58 Chloride 102 mmol/L (98-107) 06/22/20 06:58 Carbon Dioxide 32 mmol/L (21-32) 06/22/20 06:58 Anion Gap 4 MMOL/L (8-16) L 06/22/20 06:58 BUN 12.5 mg/dL (7-18) 06/22/20 06:58 Creatinine 0.7 mg/dL (0.55-1.3) 06/22/20 06:58 Est GFR (CKD-EPI)AfAm 150.95 06/22/20 06:58 Est GFR (CKD-EPI)NonAf 130.24 06/22/20 06:58 Random Glucose 80 mg/dL (74-106) 06/22/20 06:58 Calcium 9.4 mg/dL (8.5-10.1) 06/22/20 06:58 Phosphorus 4.4 mg/dL (2.5-4.9) 06/21/20 06:50 Magnesium 2.2 mg/dL (1.8-2.4) 06/22/20 06:58 Total Bilirubin 0.5 mg/dL (0.2-1) 06/22/20 06:58 AST 22 U/L (15-37) 06/22/20 06:58 ALT 22 U/L (13-61) 06/22/20 06:58 Alkaline Phosphatase 79 U/L (45-117) 06/22/20 06:58 C-Reactive Protein 12.4 MG/DL (0.00-0.3) H 06/21/20 06:50 Total Protein 8.0 g/dl (6.4-8.2) 06/22/20 06:58 Albumin 3.1 g/dl (3.4-5.0) L 06/22/20 06:58 T.pallidum Ab (FTA-ABS) Reactive (Non Reactive) H 06/21/20 06:50 HIV 1&2 Ag/Ab, 4th Gen Non reactive (Non Reactive) 06/21/20 06:50 Microbiology 06/22/20 19:30 Blood - Peripheral Venous Blood Culture - Preliminary NO GROWTH OBTAINED AFTER 24 HOURS, INCUBATION TO CONTINUE FOR 4 DAYS. 06/22/20 19:45 Blood - Peripheral Venous Blood Culture - Preliminary NO GROWTH OBTAINED AFTER 24 HOURS, INCUBATION TO CONTINUE FOR 4 DAYS. 06/20/20 20:20 Blood - Peripheral Venous Blood Culture - Preliminary Streptococcus Mitis 06/20/20 20:20 Blood - Peripheral Venous Blood Culture - Preliminary Streptococcus Mitis Problem List - Problems (1) Abscess of right upper extremity Code(s): L02.413 - CUTANEOUS ABSCESS OF RIGHT UPPER LIMB (2) Opioid dependence with withdrawal Code(s): F11.23 - OPIOID DEPENDENCE WITH WITHDRAWAL (3) IVDU (intravenous drug user) Code(s): F19.90 - OTHER PSYCHOACTIVE SUBSTANCE USE, UNSPECIFIED, UNCOMPLICATED Assessment/Plan RUE antecubital abscess s/p I+D Strep mitis bacteremia Polysubstance abuse IVDU -- RUE with less edema, afebrile -- Blood culture + Strep mitis, Echo results reviewed, no vegetations noted, repeat blood cultures neg. 24hr - continue follow -- wound cultures sent - follow up results -- d/c Zosyn, will switch to Ceftriaxone 2 G IV daily, continue Vancomycin for now -- monitor renal function, Vancomycin trough prior to tomorrow's dose -- wbc normal, monitor temps/renal function -- continue wound care
[2020-06-24] MEDS: ACETAMINOPHEN 325 MG TABLET (FP) PO PRN ×3 (00:03→20:05)
[2020-06-24] MEDS ORDERED: METHADONE HCL 10 MG TABLET PO ONE ×2 (06:00)
[2020-06-24] MEDS ORDERED: METHADONE HCL 5 MG TABLET PO ONE (06:00)
[2020-06-24 06:47] LABS: BASO % 0.7 % (0-2.0); EOS % 2.7 % (0-4.5); HEMATOCRIT 40.3 % (35.4-49); HEMOGLOBIN 13.5 GM/dL (11.7-16.9); LYMPH % 25.6 % (8-40); MCH 28.1 pg (25.7-33.7); MCHC 33.4 g/dl (32.0-35.9); MEAN CELL VOLUME 84.2 fl (80-96); MEAN PLT VOLUME 8.2 fl (7.5-11.1); MONO % 8.3 % (3.8-10.2); NEUT % 62.7 % (42.8-82.8); PLATELET COUNT 339 K/MM3 (134-434); RBC 4.79 M/mm3 (4.00-5.60); RDW 12.9 % (11.9-15.9); WHITE BLOOD COUNT 9.3 K/mm3 (4.0-10.0)
[2020-06-24 06:59] LABS: BLOOD UREA NITROGEN 12.7 mg/dL (7-18); CALCIUM 9.2 mg/dL (8.5-10.1); CREATININE 0.7 mg/dL (0.55-1.3); POTASSIUM 4.4 mmol/L (3.5-5.1)
[2020-06-24] MEDS ORDERED: DEXTROSE 5%-WATER - 50 ML IVPB ONE (08:38)
[2020-06-24] MEDS: ENOXAPARIN NA (PORCINE) 40 MG/0.4 ML DISP.SYRIN SQ SCH (09:14)
[2020-06-24] MEDS: CEFTRIAXONE 2 GM in DEXTROSE 5%-WATER - 50 ML IVPB SCH (09:15)
--- NOTE | 2020-06-24 10:29 | PN ---
Progress Note, Physician History of Present Illness: stable no new issues - Current Medication List Current Medications: Active Medications Acetaminophen (Tylenol -) 650 mg PO Q6H PRN PRN Reason: Fever Or Pain 6-10 Last Admin: 06/24/20 09:15 Dose: 650 mg Documented by: Clonidine (Catapres -) 0.1 mg PO BID PRN PRN Reason: WITHDRAWAL(CONT SUBST) Last Admin: 06/22/20 09:35 Dose: 0.1 mg Documented by: Enoxaparin Sodium (Lovenox -) 40 mg SQ DAILY [facility] Last Admin: 06/24/20 09:14 Dose: 40 mg Documented by: Vancomycin HCl 1,500 mg/ (Dextrose) 500 mls @ 250 mls/hr IVPB Q24H [facility]; Protocol Last Admin: 06/23/20 12:05 Dose: 250 mls/hr Documented by: Ceftriaxone Sodium 2 gm/ (Dextrose) 50 mls @ 100 mls/hr IVPB DAILY [facility]; Protocol Last Admin: 06/24/20 09:15 Dose: 100 mls/hr Documented by: - Objective Vital Signs: Vital Signs Temperature 97.5 F L 06/24/20 05:00 Pulse Rate 52 L 06/24/20 05:00 Respiratory Rate 18 06/24/20 05:00 Blood Pressure 134/79 06/24/20 05:00 O2 Sat by Pulse Oximetry (%) 98 06/24/20 05:00 Constitutional: Yes: No Distress, Calm Cardiovascular: Yes: Regular Rate and Rhythm Respiratory: Yes: Regular, CTA Bilaterally Gastrointestinal: Yes: Normal Bowel Sounds, Soft Musculoskeletal: Yes: WNL Extremities: Yes: Other Wound/Incision: Yes: Dressing Dry and Intact Neurological: Yes: Alert, Oriented Labs: CBC, BMP 06/24/20 05:40 06/24/20 05:40 Assessment/Plan roblem List - Problems (1) Abscess of right upper extremity Code(s): L02.413 - CUTANEOUS ABSCESS OF RIGHT UPPER LIMB (2) Opioid dependence with withdrawal Code(s): F11.23 - OPIOID DEPENDENCE WITH WITHDRAWAL (3) IVDU (intravenous drug user) Code(s): F19.90 - OTHER PSYCHOACTIVE SUBSTANCE USE, UNSPECIFIED, UNCOMPLICATED Assessment/Plan RUE antecubital abscess s/p I+D Strep mitis bacteremia Polysubstance abuse IVDU -- RUE with less edema, afebrile -- Blood culture + Strep mitis, Echo results reviewed, no vegetations noted, repeat blood cultures neg. 24hr - continue follow -- wound cultures sent - follow up results continue abx will d/w the team rpr noted wound cx awaited
[2020-06-24] MEDS: VANCOMYCIN HCL 1,500 MG in DEXTROSE 5%-WATER - 500 ML IVPB SCH ×2 (12:01→21:45)
--- NOTE | 2020-06-24 18:21 | PN ---
Physical Exam: SUBJECTIVE: Patient seen and examined. No acute events overnight. OBJECTIVE: Vital Signs Temperature 98 F 06/24/20 13:00 Pulse Rate 57 L 06/24/20 13:00 Respiratory Rate 18 06/24/20 13:00 Blood Pressure 127/61 06/24/20 13:00 O2 Sat by Pulse Oximetry (%) 97 06/24/20 13:00 GENERAL: The patient is awake, alert, and fully oriented, in no acute distress. NECK:full range of motion, supple. LUNGS: Breath sounds equal, clear to auscultation bilaterally HEART: Regular rate and rhythm, S1, S2 ABDOMEN: Soft, nontender, nondistended, normoactive bowel sounds EXTREMITIES: 2+ pulses, warm, well-perfused, no edema. RUE: antecubital fossa with dressing s/p I&D in the ED. +2cm wound, packed, samm ining blood. with minimal surrounding erythema and tenderness SKIN: Warm, dry, normal turgor Laboratory Results - last 24 hr 06/21/20 06/24/20 06/24/20 06:00 05:40 05:40 WBC 9.3 RBC 4.79 Hgb 13.5 Hct 40.3 MCV 84.2 MCH 28.1 MCHC 33.4 RDW 12.9 Plt Count 339 D MPV 8.2 D Absolute Neuts (auto) 5.8 Neutrophils % 62.7 Lymphocytes % 25.6 Monocytes % 8.3 Eosinophils % 2.7 Basophils % 0.7 Nucleated RBC % 0 Sodium Potassium Chloride Carbon Dioxide Anion Gap BUN Creatinine Est GFR (CKD-EPI)AfAm Est GFR (CKD-EPI)NonAf Random Glucose Calcium Vancomycin Pre-Dose Syphilis Serology Reactive A* RPR Titer T.pallidum Ab (FTA-ABS) Cancelled 06/24/20 06/24/20 06/24/20 05:40 05:40 09:50 WBC RBC Hgb Hct MCV MCH MCHC RDW Plt Count MPV Absolute Neuts (auto) Neutrophils % Lymphocytes % Monocytes % Eosinophils % Basophils % Nucleated RBC % Sodium 139 Potassium 4.4 Chloride 104 Carbon Dioxide 26 Anion Gap 9 BUN 12.7 Creatinine 0.7 Est GFR (CKD-EPI)AfAm 150.95 Est GFR (CKD-EPI)NonAf 130.24 Random Glucose 82 Calcium 9.2 Vancomycin Pre-Dose 1.6 L Syphilis Serology RPR Titer Reactive 1:1 H D T.pallidum Ab (FTA-ABS) Active Medications Generic Name Dose Route Start Last Admin Trade Name Freq PRN Reason Stop Dose Admin Acetaminophen 650 mg 06/21/20 02:09 06/24/20 09:15 Tylenol - PO 650 mg Q6H PRN Administration Fever Or Pain 6-10 Clonidine 0.1 mg 06/21/20 11:33 06/22/20 09:35 Catapres - PO 0.1 mg BID PRN Administration WITHDRAWAL(CONT SUBST) Enoxaparin Sodium 40 mg 06/20/20 21:30 06/24/20 09:14 Lovenox - SQ 40 mg DAILY SABAS Administration Ceftriaxone Sodium 2 gm/ 50 mls @ 100 mls/hr 06/24/20 10:00 06/24/20 09:15 Dextrose IVPB 100 mls/hr DAILY [facility] Administration Protocol Vancomycin HCl 1,500 mg/ 500 mls @ 250 mls/hr 06/24/20 22:00 Dextrose IVPB BID S[facility] Protocol Methadone HCl 5 mg 06/25/20 06:00 Dolophine - PO 06/25/20 06:01 ONCE ONE ASSESSMENT/PLAN: Patient is a 25 yo M with PMH of polysubstance abuse presenting with worsening redness and pain for RUE cellulitis/abscess. Examination and workup significant for: [id number] abscess at R antecubital fossa with increased erythema; RPR +. #RUE Cellulitis/Abscess 2/2 IV drug use - Blood culture - Strep mitis on 2 bottles - repeat blood cx no growth to date - IV Vancomycin increased to 1500mg bid, repeat vanc trough tomorrow pm prior to 4th dose - Iv zosyn switched to Ceftriaxone - CT scan of RUE: No soft tissue air accumulation is seen along the deep fascial planes. A Punctate focus of subcutaneous air is seen along the R elbow ventrally possibly on a postprocedural basis and prob less likely due to necrotizing cellulitis. Soft tissue edema along the elbow ventrally without obvious fluid collection. Concentric subcutaneous edema along length of visualized RUE. No CT evidence of osteomyelitis. - wound culture pending (although done after abx started) - Echo done - LV normal, EF 55-60%, normal RV, mild MR/TR - ID (Dr. Salomon) consulted. Recommendations appreciated. - Surgery (Dr. Huitron) consulted. Recommendations appreciated. - Tylenol prn; Motrin prn for now as pt reports his pain is better managed with Motrin #Syphilis (RPR+) - FTA reactive - patient reported he received treatment in the past, will hold further treatment as per ID - ID consulted - HIV test nonreactive - Hepatitis serology pending #Polysubstance Abuse - Recently at [facility] - will continue detox - Dr. Ortega from [facility] consulted - Refer to drug detox upon discharge - facilitate any assistance with smoking cessation; nicotine patch if necessary #FEN - Not on any standing fluids - Electrolytes wnl, routine bmp monitoring - Regular diet #DVT PPx - Lovenox 40 mg SQ daily #Dispo - full code - med surg Visit type - Emergency Visit Emergency Visit: Yes ED Registration Date: 06/20/20 Care time: The patient presented to the Emergency Department on the above date and was hospitalized for further evaluation of their emergent condition. - New Patient This patient is new to me today: No - Critical Care Critical Care patient: No ATTENDING PHYSICIAN STATEMENT I saw and evaluated the patient. I reviewed the resident's note and discussed the case with the resident. I agree with the resident's findings and plan as documented. SUBJECTIVE: OBJECTIVE: ASSESSMENT AND PLAN:
[2020-06-24] MEDS ORDERED: PT OWN MED DRAWER 7, Y5N ONE (20:40)
[2020-06-25 00:07] LABS: HEP B CORE AB, TOT Negative (Negative)
[2020-06-25 01:20] LABS: URINE APPEARANCE CLEAR; URINE BILIRUBIN NEGATIVE (NEGATIVE); URINE COLOR YELLOW; URINE GLUCOSE (UA) NEGATIVE (NEGATIVE); URINE KETONE NEGATIVE (NEGATIVE); URINE LEUK ESTERASE NEGATIVE (NEGATIVE); URINE NITRITE NEGATIVE (NEGATIVE); URINE PROTEIN NEGATIVE (NEGATIVE); URINE UROBILINOGEN 0.2 mg/dL (0.2-1.0)
[2020-06-25] MEDS ORDERED: METHADONE HCL 5 MG TABLET PO ONE (06:00)
[2020-06-25 07:31] LABS: BASO % 0.7 % (0-2.0); EOS % 3.1 % (0-4.5); HEMATOCRIT 39.8 % (35.4-49); HEMOGLOBIN 13.3 GM/dL (11.7-16.9); LYMPH % 26.4 % (8-40); MCH 27.9 pg (25.7-33.7); MCHC 33.3 g/dl (32.0-35.9); MEAN CELL VOLUME 83.8 fl (80-96); MEAN PLT VOLUME 8.4 fl (7.5-11.1); MONO % 9.2 % (3.8-10.2); NEUT % 60.6 % (42.8-82.8); PLATELET COUNT 355 K/MM3 (134-434); RBC 4.75 M/mm3 (4.00-5.60); RDW 13.1 % (11.9-15.9); WHITE BLOOD COUNT 7.9 K/mm3 (4.0-10.0)
[2020-06-25 07:35] LABS: ALBUMIN 3.2 g/dl (3.4-5.0); BILIRUBIN,TOTAL 0.4 mg/dL (0.2-1); BLOOD UREA NITROGEN 11.8 mg/dL (7-18); CALCIUM 9.2 mg/dL (8.5-10.1); CREATININE 0.6 mg/dL (0.55-1.3); MAGNESIUM 2.1 mg/dL (1.8-2.4); PHOSPHOROUS 4.4 mg/dL (2.5-4.9); POTASSIUM 4.3 mmol/L (3.5-5.1)
[2020-06-25] MEDS ORDERED: DEXTROSE 5%-WATER - 50 ML IVPB ONE (08:37)
[2020-06-25] MEDS: CEFTRIAXONE 2 GM in DEXTROSE 5%-WATER - 50 ML IVPB SCH (09:24)
[2020-06-25] MEDS: ENOXAPARIN NA (PORCINE) 40 MG/0.4 ML DISP.SYRIN SQ SCH (09:25)
[2020-06-25] MEDS: VANCOMYCIN HCL 1,500 MG in DEXTROSE 5%-WATER - 500 ML IVPB SCH ×2 (10:08→22:44)
--- NOTE | 2020-06-25 11:25 | PN ---
Progress Note, Physician History of Present Illness: stable no new issues - Current Medication List Current Medications: Active Medications Acetaminophen (Tylenol -) 650 mg PO Q6H PRN PRN Reason: Fever Or Pain 6-10 Last Admin: 06/24/20 20:05 Dose: 650 mg Documented by: Clonidine (Catapres -) 0.1 mg PO BID PRN PRN Reason: WITHDRAWAL(CONT SUBST) Last Admin: 06/22/20 09:35 Dose: 0.1 mg Documented by: Enoxaparin Sodium (Lovenox -) 40 mg SQ DAILY [facility] Last Admin: 06/25/20 09:25 Dose: 40 mg Documented by: Ceftriaxone Sodium 2 gm/ (Dextrose) 50 mls @ 100 mls/hr IVPB DAILY [facility]; Protocol Last Admin: 06/25/20 09:24 Dose: 100 mls/hr Documented by: Vancomycin HCl 1,500 mg/ (Dextrose) 500 mls @ 250 mls/hr IVPB BID SABAS; Protocol Last Admin: 06/25/20 10:08 Dose: 250 mls/hr Documented by: - Objective Vital Signs: Vital Signs Temperature 97.9 F 06/25/20 08:21 Pulse Rate 50 L 06/25/20 08:21 Respiratory Rate 18 06/25/20 09:00 Blood Pressure 127/67 06/25/20 08:21 O2 Sat by Pulse Oximetry (%) 99 06/25/20 09:00 Constitutional: Yes: No Distress, Calm Eyes: Yes: Conjunctiva Clear Neck: Yes: Supple, Trachea Midline Cardiovascular: Yes: Regular Rate and Rhythm Respiratory: Yes: Regular, CTA Bilaterally Gastrointestinal: Yes: Normal Bowel Sounds, Soft Musculoskeletal: Yes: WNL Extremities: Yes: Other Wound/Incision: Yes: Dressing Dry and Intact Neurological: Yes: Alert, Oriented Psychiatric: Yes: Alert, Oriented Labs: CBC, BMP 06/25/20 06:30 06/25/20 06:30 Assessment/Plan roblem List - Problems (1) Abscess of right upper extremity Code(s): L02.413 - CUTANEOUS ABSCESS OF RIGHT UPPER LIMB (2) Opioid dependence with withdrawal Code(s): F11.23 - OPIOID DEPENDENCE WITH WITHDRAWAL (3) IVDU (intravenous drug user) Code(s): F19.90 - OTHER PSYCHOACTIVE SUBSTANCE USE, UNSPECIFIED, UNCOMPLICATED Assessment/Plan RUE antecubital abscess s/p I+D Strep mitis bacteremia Polysubstance abuse IVDU -- RUE with less edema, afebrile -- Blood culture + Strep mitis, Echo results reviewed, no vegetations noted, repeat blood cultures neg. 24hr - continue follow -- wound cultures sent - follow up results continue abx will d/w the team rpr noted wound cx awaited according tot he patient last year he was treated for syphilis we will still probably treat him as he is a high risk behaviour with ceftriaxone and then on d/c will give doxy
--- NOTE | 2020-06-25 12:41 | PN ---
Physical Exam: SUBJECTIVE: Patient seen and examined OBJECTIVE: Vital Signs Temperature 97.9 F 06/25/20 08:21 Pulse Rate 50 L 06/25/20 08:21 Respiratory Rate 18 06/25/20 09:00 Blood Pressure 127/67 06/25/20 08:21 O2 Sat by Pulse Oximetry (%) 99 06/25/20 09:00 GENERAL: The patient is awake, alert, and fully oriented, in no acute distress. NECK:full range of motion, supple. LUNGS: Breath sounds equal, clear to auscultation bilaterally HEART: Regular rate and rhythm, S1, S2 ABDOMEN: Soft, nontender, nondistended, normoactive bowel sounds EXTREMITIES: 2+ pulses, warm, well-perfused, no edema. RUE: antecubital fossa with dressing s/p I&D in the ED. Dressing C/D/I SKIN: Warm, dry, normal turgor Laboratory Results - last 24 hr 06/21/20 06/21/20 06/25/20 06:00 06:50 00:00 WBC RBC Hgb Hct MCV MCH MCHC RDW Plt Count MPV Absolute Neuts (auto) Neutrophils % Lymphocytes % Monocytes % Eosinophils % Basophils % Nucleated RBC % Sodium Potassium Chloride Carbon Dioxide Anion Gap BUN Creatinine Est GFR (CKD-EPI)AfAm Est GFR (CKD-EPI)NonAf Random Glucose Calcium Phosphorus Magnesium Total Bilirubin AST ALT Alkaline Phosphatase Total Protein Albumin Urine Color Yellow Urine Appearance Clear Urine pH 7.0 Ur Specific [place] 1.012 Urine Protein Negative Urine Glucose (UA) Negative Urine Ketones Negative Urine Blood Negative Urine Nitrite Negative Urine Bilirubin Negative Urine Urobilinogen 0.2 Ur Leukocyte Esterase Negative T.pallidum Ab (FTA-ABS) Cancelled Hep A IgM Ab Confirm Negative Hepatitis A Ab Total Positive H Hep Bs Antigen Negative Hep Bs Antibody Reactive Hep B Core Total Ab Negative Hep B Core IgM Ab Negative Hepatitis Be Antibody Negative Hepatitis Be Antigen Negative 06/25/20 06/25/20 06:30 06:30 WBC 7.9 RBC 4.75 Hgb 13.3 Hct 39.8 MCV 83.8 MCH 27.9 MCHC 33.3 RDW 13.1 Plt Count 355 MPV 8.4 Absolute Neuts (auto) 4.8 Neutrophils % 60.6 Lymphocytes % 26.4 Monocytes % 9.2 Eosinophils % 3.1 Basophils % 0.7 Nucleated RBC % 0 Sodium 139 Potassium 4.3 Chloride 105 Carbon Dioxide 25 Anion Gap 10 BUN 11.8 Creatinine 0.6 Est GFR (CKD-EPI)AfAm 160.83 Est GFR (CKD-EPI)NonAf 138.76 Random Glucose 80 Calcium 9.2 Phosphorus 4.4 Magnesium 2.1 Total Bilirubin 0.4 AST 42 H ALT 53 Alkaline Phosphatase 76 Total Protein 8.0 Albumin 3.2 L Urine Color Urine Appearance Urine pH Ur Specific [place] Urine Protein Urine Glucose (UA) Urine Ketones Urine Blood Urine Nitrite Urine Bilirubin Urine Urobilinogen Ur Leukocyte Esterase T.pallidum Ab (FTA-ABS) Hep A IgM Ab Confirm Hepatitis A Ab Total Hep Bs Antigen Hep Bs Antibody Hep B Core Total Ab Hep B Core IgM Ab Hepatitis Be Antibody Hepatitis Be Antigen Active Medications Generic Name Dose Route Start Last Admin Trade Name Freq PRN Reason Stop Dose Admin Acetaminophen 650 mg 06/21/20 02:09 06/24/20 20:05 Tylenol - PO 650 mg Q6H PRN Administration Fever Or Pain 6-10 Clonidine 0.1 mg 06/21/20 11:33 06/22/20 09:35 Catapres - PO 0.1 mg BID PRN Administration WITHDRAWAL(CONT SUBST) Enoxaparin Sodium 40 mg 06/20/20 21:30 06/25/20 09:25 Lovenox - SQ 40 mg DAILY SABAS Administration Ceftriaxone Sodium 2 gm/ 50 mls @ 100 mls/hr 06/24/20 10:00 06/25/20 09:24 Dextrose IVPB 100 mls/hr DAILY [facility]AS Administration Protocol Vancomycin HCl 1,500 mg/ 500 mls @ 250 mls/hr 06/24/20 22:00 06/25/20 10:08 Dextrose IVPB 250 mls/hr BID SABAS Administration Protocol ASSESSMENT/PLAN: Patient is a 25 yo M with PMH of polysubstance abuse presenting with worsening redness and pain for RUE cellulitis/abscess. Examination and workup significant for: [id number] abscess at R antecubital fossa with increased erythema; RPR +. #RUE Cellulitis/Abscess 2/2 IV drug use - Blood culture - Strep mitis on 2 bottles - repeat blood cx no growth to date - IV Vancomycin increased to 1500mg bid, repeat vanc trough tomorrow pm prior to 4th dose - Iv zosyn switched to Ceftriaxone - CT scan of RUE: No soft tissue air accumulation is seen along the deep fascial planes. A Punctate focus of subcutaneous air is seen along the R elbow ventrally possibly on a postprocedural basis and prob less likely due to necrotizing cellulitis. Soft tissue edema along the elbow ventrally without obvious fluid collection. Concentric subcutaneous edema along length of visualized RUE. No CT evidence of osteomyelitis. - wound culture pending (although done after abx started) - Echo done - LV normal, EF 55-60%, normal RV, mild MR/TR - ID (Dr. Salomon) consulted. Recommendations appreciated. - Surgery (Dr. Huitron) consulted. Recommendations appreciated. - Tylenol prn; Motrin prn for now as pt reports his pain is better managed with Motrin #Syphilis (RPR+) - FTA reactive - patient reported he received treatment in the past - Ceftriaxone while here and d/c on doxycycline - ID consulted - HIV test nonreactive - Hepatitis serology pending #Polysubstance Abuse - Recently at [facility] - completed detox today - Dr. Ortega from [facility] consulted - Refer to drug rehab upon discharge - facilitate any assistance with smoking cessation; nicotine patch if necessary #FEN - Not on any standing fluids - Electrolytes wnl, routine bmp monitoring - Regular diet #DVT PPx - Lovenox 40 mg SQ daily #Dispo - full code - med surg Visit type - Emergency Visit Emergency Visit: Yes ED Registration Date: 06/20/20 Care time: The patient presented to the Emergency Department on the above date and was hospitalized for further evaluation of their emergent condition. - New Patient This patient is new to me today: No - Critical Care Critical Care patient: No ATTENDING PHYSICIAN STATEMENT I saw and evaluated the patient. I reviewed the resident's note and discussed the case with the resident. I agree with the resident's findings and plan as documented. SUBJECTIVE: OBJECTIVE: ASSESSMENT AND PLAN:
--- NOTE | 2020-06-25 13:19 | PN ---
Teaching Attending Note Name of Resident: Ashlee Padron ATTENDING PHYSICIAN STATEMENT I saw and evaluated the patient. I reviewed the resident's note and discussed the case with the resident. I agree with the resident's findings and plan as documented. SUBJECTIVE: seen and examined at bedside, asking for more methadone OBJECTIVE: Last Vital Signs Temp Pulse Resp BP Pulse Ox 97.9 F 50 L 18 127/67 99 06/25/20 08:21 06/25/20 08:21 06/25/20 09:00 06/25/20 08:21 06/25/20 09:00 GENERAL: Awake, alert, and fully oriented, in no acute distress. HEENT: NC/AT, not p/c/j, neck supple no JVD LUNGS: Breath sounds equal, clear to auscultation bilaterally. No wheezes, and no crackles. No accessory muscle use. HEART: Regular rate and rhythm, normal S1 and S2 without murmur, rub or gallop. ABDOMEN: Soft, nontender, not distended, normoactive bowel sounds, no guarding, no rebound, no masses. No hepatomegaly or splenomegaly. MUSCULOSKELETAL: Normal range of motion at all joints. No bony deformities or tenderness. No CVA tenderness. UPPER EXTREMITIES: 2+ pulses, warm, well-perfused. No cyanosis. No clubbing. No peripheral edema. RT wound wrapped, clean, non tender LOWER EXTREMITIES: 2+ pulses, warm, well-perfused. No calf tenderness. No peripheral edema. CBCD WBC 7.9 K/mm3 (4.0-10.0) 06/25/20 06:30 RBC 4.75 M/mm3 (4.00-5.60) 06/25/20 06:30 Hgb 13.3 GM/dL (11.7-16.9) 06/25/20 06:30 Hct 39.8 % (35.4-49) 06/25/20 06:30 MCV 83.8 fl (80-96) 06/25/20 06:30 MCHC 33.3 g/dl (32.0-35.9) 06/25/20 06:30 RDW 13.1 % (11.9-15.9) 06/25/20 06:30 Plt Count 355 K/MM3 (134-434) 06/25/20 06:30 MPV 8.4 fl (7.5-11.1) 06/25/20 06:30 CMP Sodium 139 mmol/L (136-145) 06/25/20 06:30 Potassium 4.3 mmol/L (3.5-5.1) 06/25/20 06:30 Chloride 105 mmol/L (98-107) 06/25/20 06:30 Carbon Dioxide 25 mmol/L (21-32) 06/25/20 06:30 Anion Gap 10 MMOL/L (8-16) 06/25/20 06:30 BUN 11.8 mg/dL (7-18) 06/25/20 06:30 Creatinine 0.6 mg/dL (0.55-1.3) 06/25/20 06:30 Calcium 9.2 mg/dL (8.5-10.1) 06/25/20 06:30 Total Bilirubin 0.4 mg/dL (0.2-1) 06/25/20 06:30 AST 42 U/L (15-37) H 06/25/20 06:30 ALT 53 U/L (13-61) 06/25/20 06:30 Alkaline Phosphatase 76 U/L (45-117) 06/25/20 06:30 Total Protein 8.0 g/dl (6.4-8.2) 06/25/20 06:30 Albumin 3.2 g/dl (3.4-5.0) L 06/25/20 06:30 Current Medications Generic Name Dose Route Start Last Admin Trade Name Freq PRN Reason Stop Dose Admin Acetaminophen 650 mg 06/21/20 02:09 06/24/20 20:05 Tylenol - PO 650 mg Q6H PRN Administration Fever Or Pain 6-10 Clonidine 0.1 mg 06/21/20 11:33 06/22/20 09:35 Catapres - PO 0.1 mg BID PRN Administration WITHDRAWAL(CONT SUBST) Enoxaparin Sodium 40 mg 06/20/20 21:30 06/25/20 09:25 Lovenox - SQ 40 mg DAILY SABAS Administration Ceftriaxone Sodium 2 gm/ 50 mls @ 100 mls/hr 06/24/20 10:00 06/25/20 09:24 Dextrose IVPB 100 mls/hr DAILY S[facility]AS Administration Protocol Vancomycin HCl 1,500 mg/ 500 mls @ 250 mls/hr 06/24/20 22:00 06/25/20 10:08 Dextrose IVPB 250 mls/hr BID SABAS Administration Protocol ASSESSMENT AND PLAN: 25 M with hx of cociane, heroin abuse was in detox prior to admission, Hep C admitted with strep mitis bacteremia due to right antecubital abscess/cellulitis # R antecubital cellulitis s/p I&D - initial blood culture Strep mitis, repeated culture negative - wound culture pending - echo negative for vegetations - c/w IV ABx pending final wound culture - ID consult appreciated - FTA reactive - patient reported he received treatment in the past - Ceftriaxone while here and d/c on doxycycline Cocaine/Heroin use h/o LSD/ecstacy use Nicotine dependence Hep C Methadone 5mg for dependence DVt ppx: Lovenox
--- NOTE | 2020-06-25 15:24 | PN ---
Teaching Attending Note Name of Resident: Ashlee Padron ATTENDING PHYSICIAN STATEMENT I saw and evaluated the patient. I reviewed the resident's note and discussed the case with the resident. I agree with the resident's findings and plan as documented. SUBJECTIVE: Patient seen and examined at bedside, blood cx repeat negative still on IV abx, Echo neg. for vegetations. RPR+, ID following. VSS. OBJECTIVE: GENERAL: Awake, alert, and fully oriented, in no acute distress. Mild discomfort. Mildly agitated. HEAD: NCAT EYES: PERRLA, EOMI, sclera white, conjunctiva clear. EARS, NOSE, THROAT: Oropharynx clear without exudates. Moist mucous membranes. NECK: Normal range of motion, supple without lymphadenopathy, or masses. LUNGS: Breath sounds equal, clear to auscultation bilaterally. No wheezes, and no crackles. No accessory muscle use. HEART: Regular rate and rhythm, normal S1 and S2 without murmur, rub or gallop. ABDOMEN: Soft, nontender, not distended, normoactive bowel sounds. MUSCULOSKELETAL: Moving all extremities except RUE (location of abscess) spontaneously and equally. UPPER EXTREMITIES: 2+ pulses, warm, well-perfused. R antecubital fossa with dressing s/p I&D in the ED. Pt refused further evaluation of RUE abscess. LOWER EXTREMITIES: 2+ pulses, warm, well-perfused. No peripheral edema. NEUROLOGICAL: Cranial nerves II-XII intact. Normal speech. SKIN: Warm, dry, normal turgor, no rashes or lesions noted; no macuolopapular rashes noted on upper or lower extrimites Vital Signs - 24 hr 06/24/20 06/24/20 06/24/20 18:00 21:00 22:00 Temperature 98.0 F 98.1 F Pulse Rate 55 L 56 L Respiratory 18 18 Rate Blood Pressure 137/72 136/73 O2 Sat by Pulse 99 98 98 Oximetry (%) 06/25/20 06/25/20 06/25/20 06:00 08:21 09:00 Temperature 97.8 F 97.9 F Pulse Rate 46 L 50 L Respiratory 18 18 18 Rate Blood Pressure 125/75 127/67 O2 Sat by Pulse 95 99 99 Oximetry (%) 06/25/20 15:02 Temperature 98.1 F Pulse Rate 60 Respiratory 18 Rate Blood Pressure 132/72 O2 Sat by Pulse Oximetry (%) Microbiology 06/20/20 20:20 Blood - Peripheral Venous Blood Culture - Final Streptococcus Mitis 06/23/20 14:30 Arm - Right Upper Gram Stain - Final 06/23/20 14:30 Arm - Right Upper Wound Culture - Preliminary Staphylococcus Latex Coag Pos 06/22/20 19:30 Blood - Peripheral Venous Blood Culture - Preliminary NO GROWTH OBTAINED AFTER 48 HOURS, INCUBATION TO CONTINUE FOR 3 DAYS. 06/22/20 19:45 Blood - Peripheral Venous Blood Culture - Preliminary NO GROWTH OBTAINED AFTER 48 HOURS, INCUBATION TO CONTINUE FOR 3 DAYS. 06/20/20 20:20 Blood - Peripheral Venous Blood Culture - Final Streptococcus Mitis Laboratory Results - last 24 hr 06/21/20 06/25/20 06/25/20 06:50 00:00 06:30 WBC 7.9 RBC 4.75 Hgb 13.3 Hct 39.8 MCV 83.8 MCH 27.9 MCHC 33.3 RDW 13.1 Plt Count 355 MPV 8.4 Absolute Neuts (auto) 4.8 Neutrophils % 60.6 Lymphocytes % 26.4 Monocytes % 9.2 Eosinophils % 3.1 Basophils % 0.7 Nucleated RBC % 0 Sodium Potassium Chloride Carbon Dioxide Anion Gap BUN Creatinine Est GFR (CKD-EPI)AfAm Est GFR (CKD-EPI)NonAf Random Glucose Calcium Phosphorus Magnesium Total Bilirubin AST ALT Alkaline Phosphatase Total Protein Albumin Urine Color Yellow Urine Appearance Clear Urine pH 7.0 Ur Specific [place] 1.012 Urine Protein Negative Urine Glucose (UA) Negative Urine Ketones Negative Urine Blood Negative Urine Nitrite Negative Urine Bilirubin Negative Urine Urobilinogen 0.2 Ur Leukocyte Esterase Negative Hep A IgM Ab Confirm Negative Hepatitis A Ab Total Positive H Hep Bs Antigen Negative Hep Bs Antibody Reactive Hep B Core Total Ab Negative Hep B Core IgM Ab Negative Hepatitis Be Antibody Negative Hepatitis Be Antigen Negative 06/25/20 06:30 WBC RBC Hgb Hct MCV MCH MCHC RDW Plt Count MPV Absolute Neuts (auto) Neutrophils % Lymphocytes % Monocytes % Eosinophils % Basophils % Nucleated RBC % Sodium 139 Potassium 4.3 Chloride 105 Carbon Dioxide 25 Anion Gap 10 BUN 11.8 Creatinine 0.6 Est GFR (CKD-EPI)AfAm 160.83 Est GFR (CKD-EPI)NonAf 138.76 Random Glucose 80 Calcium 9.2 Phosphorus 4.4 Magnesium 2.1 Total Bilirubin 0.4 AST 42 H ALT 53 Alkaline Phosphatase 76 Total Protein 8.0 Albumin 3.2 L Urine Color Urine Appearance Urine pH Ur Specific [place] Urine Protein Urine Glucose (UA) Urine Ketones Urine Blood Urine Nitrite Urine Bilirubin Urine Urobilinogen Ur Leukocyte Esterase Hep A IgM Ab Confirm Hepatitis A Ab Total Hep Bs Antigen Hep Bs Antibody Hep B Core Total Ab Hep B Core IgM Ab Hepatitis Be Antibody Hepatitis Be Antigen Home Medications Medication Instructions Recorded NK [No Known Home Medication] 06/19/20 Current Medications Generic Name Dose Route Start Last Admin Trade Name Parkerq PRN Reason Stop Dose Admin Acetaminophen 650 mg 06/21/20 02:09 06/24/20 20:05 Tylenol - PO 650 mg Q6H PRN Administration Fever Or Pain 6-10 Clonidine 0.1 mg 06/21/20 11:33 06/22/20 09:35 Catapres - PO 0.1 mg BID PRN Administration WITHDRAWAL(CONT SUBST) Enoxaparin Sodium 40 mg 06/20/20 21:30 06/25/20 09:25 Lovenox - SQ 40 mg DAILY [facility] Administration Ceftriaxone Sodium 2 gm/ 50 mls @ 100 mls/hr 06/24/20 10:00 06/25/20 09:24 Dextrose IVPB 100 mls/hr DAILY [facility] Administration Protocol Vancomycin HCl 1,500 mg/ 500 mls @ 250 mls/hr 06/24/20 22:00 06/25/20 10:08 Dextrose IVPB 250 mls/hr BID [facility] Administration Protocol ASSESSMENT AND PLAN: 25 M R antecubital cellulitis from drug injection site Gram + bacteremia Syphilis RPR+ PSA Cocaine use Heroin h/o LSD/ecstacy use Nicotine dependence Hep C Plan: COnt Vanc/Zosyn w/ monitoring of trough Watch for withdrawal Cont. Methadone Will need correction abx for bacteremia Got treated for syphilis months back, will need repeat testing no indication to treat right now per ID team ID following DVt ppx: Lovenox
[2020-06-26 06:32] LABS: BASO % 0.7 % (0-2.0); EOS % 1.9 % (0-4.5); HEMATOCRIT 40.9 % (35.4-49); HEMOGLOBIN 13.9 GM/dL (11.7-16.9); LYMPH % 24.4 % (8-40); MCH 28.4 pg (25.7-33.7); MEAN CELL VOLUME 83.7 fl (80-96); MONO % 8.3 % (3.8-10.2); NEUT % 64.7 % (42.8-82.8); PLATELET COUNT 372 K/MM3 (134-434); RBC 4.88 M/mm3 (4.00-5.60); WHITE BLOOD COUNT 9.1 K/mm3 (4.0-10.0)
[2020-06-26 06:50] LABS: ALBUMIN 3.2 g/dl (3.4-5.0); BILIRUBIN,TOTAL 0.3 mg/dL (0.2-1); BLOOD UREA NITROGEN 12.8 mg/dL (7-18); CALCIUM 9.3 mg/dL (8.5-10.1); CREATININE 0.7 mg/dL (0.55-1.3); POTASSIUM 3.9 mmol/L (3.5-5.1); TOT PROT 8.4 g/dl (6.4-8.2)
--- NOTE | 2020-06-26 09:30 | PN ---
Progress Note, Physician History of Present Illness: stable no new issues cx results noted - Current Medication List Current Medications: Active Medications Acetaminophen (Tylenol -) 650 mg PO Q6H PRN PRN Reason: Fever Or Pain 6-10 Last Admin: 06/24/20 20:05 Dose: 650 mg Documented by: Clonidine (Catapres -) 0.1 mg PO BID PRN PRN Reason: WITHDRAWAL(CONT SUBST) Last Admin: 06/22/20 09:35 Dose: 0.1 mg Documented by: Enoxaparin Sodium (Lovenox -) 40 mg SQ DAILY [facility] Last Admin: 06/25/20 09:25 Dose: 40 mg Documented by: Ceftriaxone Sodium 2 gm/ (Dextrose) 50 mls @ 100 mls/hr IVPB DAILY [facility]; Protocol Last Admin: 06/25/20 09:24 Dose: 100 mls/hr Documented by: Vancomycin HCl 1,500 mg/ (Dextrose) 500 mls @ 250 mls/hr IVPB BID [facility]; Protocol Last Admin: 06/25/20 22:44 Dose: 250 mls/hr Documented by: - Objective Vital Signs: Vital Signs Temperature 98 F 06/26/20 05:00 Pulse Rate 55 L 06/26/20 05:00 Respiratory Rate 18 06/26/20 05:00 Blood Pressure 130/77 06/26/20 05:00 O2 Sat by Pulse Oximetry (%) 100 06/26/20 05:00 Constitutional: Yes: No Distress, Calm Cardiovascular: Yes: S1, S2 Respiratory: Yes: Regular, CTA Bilaterally Gastrointestinal: Yes: Normal Bowel Sounds, Soft Musculoskeletal: Yes: WNL Extremities: Yes: WNL Neurological: Yes: Alert, Oriented Psychiatric: Yes: Alert, Oriented Labs: CBC, BMP 06/26/20 05:52 06/26/20 05:52 Assessment/Plan roblem List - Problems (1) Abscess of right upper extremity Code(s): L02.413 - CUTANEOUS ABSCESS OF RIGHT UPPER LIMB (2) Opioid dependence with withdrawal Code(s): F11.23 - OPIOID DEPENDENCE WITH WITHDRAWAL (3) IVDU (intravenous drug user) Code(s): F19.90 - OTHER PSYCHOACTIVE SUBSTANCE USE, UNSPECIFIED, UNCOMPLICATED Assessment/Plan RUE antecubital abscess s/p I+D Strep mitis bacteremia Polysubstance abuse IVDU -- RUE with less edema, afebrile -- Blood culture + Strep mitis, Echo results reviewed, no vegetations noted, repeat blood cultures neg. 24hr - continue follow -- wound cultures sent - follow up results continue abx will d/w the team rpr noted will stop vanco
[2020-06-26] MEDS ORDERED: DEXTROSE 5%-WATER - 50 ML IVPB ONE (09:50)
[2020-06-26] MEDS: CEFTRIAXONE 2 GM in DEXTROSE 5%-WATER - 50 ML IVPB SCH (09:58)
[2020-06-26] MEDS: ENOXAPARIN NA (PORCINE) 40 MG/0.4 ML DISP.SYRIN SQ SCH (09:58)
[2020-06-26] MEDS: cloNIDine HCL 0.1 MG TABLET PO PRN (09:59)
--- NOTE | 2020-06-26 10:52 | PN ---
Teaching Attending Note Name of Resident: Ashlee Padron ATTENDING PHYSICIAN STATEMENT I saw and evaluated the patient. I reviewed the resident's note and discussed the case with the resident. I agree with the resident's findings and plan as documented. SUBJECTIVE: pt seen and examined, no new complains OBJECTIVE: Last Vital Signs Temp Pulse Resp BP Pulse Ox 98 F 55 L 18 130/77 100 06/26/20 05:00 06/26/20 05:00 06/26/20 05:00 06/26/20 05:00 06/26/20 05:00 GENERAL: Awake, alert, and fully oriented, in no acute distress. HEENT: NC/AT, not p/c/j, neck supple no JVD LUNGS: Breath sounds equal, clear to auscultation bilaterally. No wheezes, and no crackles. No accessory muscle use. HEART: Regular rate and rhythm, normal S1 and S2 without murmur, rub or gallop. ABDOMEN: Soft, nontender, not distended, normoactive bowel sounds, no guarding, no rebound, no masses. No hepatomegaly or splenomegaly. MUSCULOSKELETAL: Normal range of motion at all joints. No bony deformities or tenderness. No CVA tenderness. UPPER EXTREMITIES: 2+ pulses, warm, well-perfused. No cyanosis. No clubbing. No peripheral edema. RT wound wrapped, clean, non tender LOWER EXTREMITIES: 2+ pulses, warm, well-perfused. No calf tenderness. No peripheral edema. CBCD WBC 9.1 K/mm3 (4.0-10.0) 06/26/20 05:52 RBC 4.88 M/mm3 (4.00-5.60) 06/26/20 05:52 Hgb 13.9 GM/dL (11.7-16.9) 06/26/20 05:52 Hct 40.9 % (35.4-49) 06/26/20 05:52 MCV 83.7 fl (80-96) 06/26/20 05:52 MCHC 34.0 g/dl (32.0-35.9) 06/26/20 05:52 RDW 13.0 % (11.9-15.9) 06/26/20 05:52 Plt Count 372 K/MM3 (134-434) 06/26/20 05:52 MPV 8.0 fl (7.5-11.1) 06/26/20 05:52 CMP Sodium 139 mmol/L (136-145) 06/26/20 05:52 Potassium 3.9 mmol/L (3.5-5.1) 06/26/20 05:52 Chloride 104 mmol/L (98-107) 06/26/20 05:52 Carbon Dioxide 29 mmol/L (21-32) 06/26/20 05:52 Anion Gap 6 MMOL/L (8-16) L 06/26/20 05:52 BUN 12.8 mg/dL (7-18) 06/26/20 05:52 Creatinine 0.7 mg/dL (0.55-1.3) 06/26/20 05:52 Calcium 9.3 mg/dL (8.5-10.1) 06/26/20 05:52 Total Bilirubin 0.3 mg/dL (0.2-1) 06/26/20 05:52 AST 57 U/L (15-37) H 06/26/20 05:52 ALT 85 U/L (13-61) H 06/26/20 05:52 Alkaline Phosphatase 81 U/L (45-117) 06/26/20 05:52 Total Protein 8.4 g/dl (6.4-8.2) H 06/26/20 05:52 Albumin 3.2 g/dl (3.4-5.0) L 06/26/20 05:52 Active Medications Acetaminophen (Tylenol -) 650 mg PO Q6H PRN PRN Reason: Fever Or Pain 6-10 Last Admin: 06/24/20 20:05 Dose: 650 mg Documented by: Clonidine (Catapres -) 0.1 mg PO BID PRN PRN Reason: WITHDRAWAL(CONT SUBST) Last Admin: 06/26/20 09:59 Dose: 0.1 mg Documented by: Enoxaparin Sodium (Lovenox -) 40 mg SQ DAILY [facility] Last Admin: 06/26/20 09:58 Dose: Not Given Documented by: Ceftriaxone Sodium 2 gm/ (Dextrose) 50 mls @ 100 mls/hr IVPB DAILY [facility]; Protocol Last Admin: 06/26/20 09:58 Dose: 100 mls/hr Documented by: ASSESSMENT AND PLAN: 25 M with hx of cociane, heroin abuse was in detox prior to admission, Hep C admitted with strep mitis bacteremia due to right antecubital abscess/cellulitis # R antecubital cellulitis s/p I&D - initial blood culture Strep mitis, repeated culture negative - wound culture grew staph - echo negative for vegetations - ID consult appreciated - will d/c on doxycycline PO until 07/22/2020 (discussed with ID) Cocaine/Heroin use h/o LSD/ecstacy use Nicotine dependence Hep C, h/o syphilis DVt ppx: Lovenox
[2020-06-26 11:41] VITALS: PULSE 66; TEMP 98.1
[2020-06-26 13:51] VITALS: BP 118/64
--- NOTE | 2020-06-26 14:53 | DS ---
Physical Exam: SUBJECTIVE: Patient seen and examined OBJECTIVE: Vital Signs Period Temp Pulse Resp BP Sys/Gonzales Pulse Ox Last 24 Hr 98 F-98.1 F 53-66 18-18 118-132/64-78 98-100 PHYSICAL EXAM GENERAL: The patient is awake, alert, and fully oriented, in no acute distress. NECK:full range of motion, supple. LUNGS: Breath sounds equal, clear to auscultation bilaterally HEART: Regular rate and rhythm, S1, S2 ABDOMEN: Soft, nontender, nondistended, normoactive bowel sounds EXTREMITIES: 2+ pulses, warm, well-perfused, no edema. RUE: antecubital fossa with dressing s/p I&D in the ED. Dressing C/D/I SKIN: Warm, dry, normal turgor LABS Laboratory Results - last 24 hr 06/25/20 06/26/20 06/26/20 21:00 05:52 05:52 WBC 9.1 RBC 4.88 Hgb 13.9 Hct 40.9 MCV 83.7 MCH 28.4 MCHC 34.0 RDW 13.0 Plt Count 372 MPV 8.0 Absolute Neuts (auto) 5.9 Neutrophils % 64.7 Lymphocytes % 24.4 Monocytes % 8.3 Eosinophils % 1.9 Basophils % 0.7 Nucleated RBC % 0 Sodium 139 Potassium 3.9 Chloride 104 Carbon Dioxide 29 Anion Gap 6 L BUN 12.8 Creatinine 0.7 Est GFR (CKD-EPI)AfAm 150.95 Est GFR (CKD-EPI)NonAf 130.24 Random Glucose 86 Calcium 9.3 Total Bilirubin 0.3 AST 57 H ALT 85 H Alkaline Phosphatase 81 Total Protein 8.4 H Albumin 3.2 L Vancomycin Pre-Dose 7.7 HOSPITAL COURSE: Date of Admission:06/20/20 Date of Discharge: 06/26/20 Pt is a 25 yo male with Pmh of polysubstance abuse and hepatitis C infection presented to the ED with worsening redness, dull pain and abscess formation in the RUE. Bedside ultrasound in the ED showed 2 pockets of fluid with a connecting tract. The abscess was irrigated I&D and packed in the ED. CT scan of the RUE showed subcutaneous edema with no soft tissue air accumulation, no fluid collection and no evidence of osteomyelitis. Initial blood cultures grew Step mitis in two samples and wound culture grew MRSA. Pt was also found to be Syphilis (RPR) positive. He was treated with IV antibiotics (Vancomycin and ceftriaxone), continued to improve throughout his hospital stay and repeat blood cultures showed no growth. Echocardiography showed normal LV, normal RV EF 55- 60%, mild MR/TR and was negative for vegetations. Given pts history of polysubstance abuse, pt was placed on methadone taper which he completed. Pt will be discharged on doxycycline BID for one month and bactrim BID for 7 days. Because of the MRSA infection, patient not accepted at the rehab facility as there are no private isolation rooms. Patient will be discharged home with instructions to take the antibiotics, keep the wound clean and dry, and to follow up with PCP. Minutes to complete discharge: 38 Discharge Summary Problems reviewed: Yes Reason For Visit: CELLULITITS AND ABSCESS OF UPPER ARM AND FOREARM Current Active Problems Bacteremia (Acute) Condition: Improved - Instructions Diet, Activity, Other Instructions: Your visit You were admitted to the hospital because you were found to have an infection on your arm, likely from frequent injections into the arm. Drainage was done to take out the infectious discharge. You were also found to have infection in your blood, seen by infectious disease doctor and given IV antibiotics. You also test positive for the syphilis. You will be on a prolonged course of antibiotics for both the arm infection and the syphilis. Please take them as prescribed below. Keep the wound clean and dry at all times. Wash it daily with soap and water, apply betadine and dry dressing to cover the wound. You also completed methadone detox while here in the hospital. You are now stable for discharge to [facility] to continue rehab. Medications Please take the following medications as prescribed: 1. Doxycycline 100mg twice a day until 07/22/2020 2. Bactrim DS 1 tablet twice a day for 7 days. Follow up Please follow up with your primary care doctor within 1 week. Please follow up with the infectious disease doctor. A referral has been provided. Additional info Please call 911 or go to the emergency room if with any worsening fevers, chills, headache, dizziness, chest pain, shortness of breath, belly pain or any new concerns noted. Referrals: [facility] [Provider Group] Disposition: HOME - Home Medications Comprehensive Discharge Medication List: Ambulatory Orders Doxycycline Hyclate 100 mg PO BID #50 capsule 06/26/20 Sulfamethoxazole/Trimethoprim [Bactrim Ds -] 1 tab PO BID #14 tablet 06/26/20 This patient is new to me today: No Emergency Visit: Yes ED Registration Date: 06/20/20 Care time: The patient presented to the Emergency Department on the above date and was hospitalized for further evaluation of their emergent condition. Critical Care patient: No - Discharge Referral Referred to [facility] No ATTENDING PHYSICIAN STATEMENT I saw and evaluated the patient. I reviewed the resident's note and discussed the case with the resident. I agree with the resident's findings and plan as documented. SUBJECTIVE: OBJECTIVE: ASSESSMENT AND PLAN:
== END 2020-06-26 17:54 | disposition home or self-care (01) | DRG 383 ==
LOC: JER 18:23 → JERBED 20:58 → J7W 23:15
PROVIDERS: ADMIT Internal Medicine; ATTEND Student in an Organized Health Care Education/Training Program
PROC: 0X9B3ZX Drainage of Right Elbow Region, Percutaneous Approach, Diagnostic (ICD-10-PCS; principal; 2020-06-20)
PROC: HZ2ZZZZ Detoxification Services for Substance Abuse Treatment (ICD-10-PCS; 2020-06-21)
DX: L02.413 Cutaneous abscess of right upper limb (principal); B19.20 Unspecified viral hepatitis C without hepatic coma; L03.113 Cellulitis of right upper limb; F11.23 Opioid dependence with withdrawal; G56.31 Lesion of radial nerve, right upper limb; F17.210 Nicotine dependence, cigarettes, uncomplicated; A53.9 Syphilis, unspecified; F14.90 Cocaine use, unspecified, uncomplicated; A74.9 Chlamydial infection, unspecified; E46 Unspecified protein-calorie malnutrition; F43.10 Post-traumatic stress disorder, unspecified; E88.09 Other disorders of plasma-protein metabolism, not elsewhere classified; Z68.23 Body mass index [BMI] 23.0-23.9, adult; B95.4 Other streptococcus as the cause of diseases classified elsewhere; R78.81 Bacteremia
CPT/HCPCS: 36415; 73200-TC-RT; 76882-TC-RT; 80048; 80053; 81003; 83735; 84100; 85025; 85027; 85651; 86140; 86593; 86704; 86706; 86707; 86708; 86709; 86780; 87040; 87070; 87186; 87205; 87340; 87389; 87902; 93005; 93010; 93306-TC; 99285-25; G0480; J0735

== ENCOUNTER 2021-10-29 17:30 | Inpatient (IN) | payer OTHER ==
[2021-10-29] MEDS ORDERED: MENTHOL/PHENOL 1 EACH UD MM PRN (18:58)
[2021-10-29] MEDS ORDERED: MAGNESIUM CITRATE 300 ML BOTTLE PO PRN (18:58)
[2021-10-29] MEDS ORDERED: BISMUTH SUBSALICYLATE 524 MG/30 ML PO PRN (18:58)
[2021-10-29] MEDS ORDERED: ACETAMINOPHEN 325 MG TABLET (FP) PO PRN ×2 (18:58)
[2021-10-29] MEDS ORDERED: NICOTINE 10 MG CARTRIDGE (INHALER) IH PRN (18:58)
[2021-10-29] MEDS ORDERED: MAGNESIUM HYDROX 2400MG/30ML ORAL SUSPENSION 30 ML CUP PO PRN (18:58)
[2021-10-29] MEDS ORDERED: IBUPROFEN 400 MG TABLET (FP) PO PRN (18:58)
[2021-10-29] MEDS ORDERED: ONDANSETRON *ODT* 4 MG TABLET SL PRN (18:58)
[2021-10-29] MEDS ORDERED: MAG HYDROX/AL HYDROX/SIMETH 30 ML UNIT-DOSE CUP PO PRN (18:58)
[2021-10-29 21:15] VITALS: BMI 22.5
[2021-10-29] MEDS: MELATONIN 5 MG TABLETS PO SCH (22:38)
[2021-10-29] MEDS ORDERED: methaDONE HCL 10 MG TABLET (FOR DETOX USE ONLY) PO ONE (23:00)
[2021-10-30] MEDS: hydrOXYzine PAMOATE 25 MG CAPSULE (FP) PO SCH ×6 (00:29→22:56)
[2021-10-30] MEDS: THIAMINE HCL 100 MG TABLET (FP) PO SCH ×2 (00:29→22:56)
[2021-10-30] MEDS: PRENATAL VITAMINS W/ FOLIC ACID TABLET (FP) PO SCH ×2 (00:29→10:21)
[2021-10-30] MEDS ORDERED: methaDONE HCL 10 MG TABLET (FOR DETOX USE ONLY) ONE (09:46)
[2021-10-30] MEDS: METHOCARBAMOL 500 MG TABLET PO PRN (10:21)
[2021-10-30 13:08] LABS: HEMATOCRIT 41.3 % (35.4-49); HEMOGLOBIN 14.1 GM/dL (11.7-16.9); MCH 30.1 pg (25.7-33.7); MCHC 34.2 g/dl (32.0-35.9); MEAN CELL VOLUME 87.9 fl (80-96); MEAN PLT VOLUME 8.6 fl (7.5-11.1); PLATELET COUNT 349 10^3/uL (134-434); RDW 14.5 % (11.9-15.9); WHITE BLOOD COUNT 10.9 K/mm3 (4.0-10.0)
[2021-10-30 13:34] LABS: ALBUMIN 3.6 g/dl (3.4-5.0)
[2021-10-30 13:37] LABS: BILIRUBIN,TOTAL 0.6 mg/dL (0.2-1)
[2021-10-30 13:38] LABS: TOT PROT 7.8 g/dl (6.4-8.2)
[2021-10-30] MEDS: MELATONIN 5 MG TABLETS PO SCH (22:56)
[2021-10-31] MEDS: hydrOXYzine PAMOATE 25 MG CAPSULE (FP) PO SCH ×5 (05:51→22:40)
[2021-10-31] MEDS: cloNIDine HCL 0.1 MG TABLET PO PRN ×2 (05:53→22:39)
[2021-10-31] MEDS ORDERED: methaDONE HCL 10 MG TABLET (FOR DETOX USE ONLY) PO ONE (10:00)
[2021-10-31] MEDS: PRENATAL VITAMINS W/ FOLIC ACID TABLET (FP) PO SCH (11:06)
[2021-10-31] MEDS: METHOCARBAMOL 500 MG TABLET PO PRN (18:02)
[2021-10-31] MEDS: MELATONIN 5 MG TABLETS PO SCH (22:40)
[2021-10-31] MEDS: THIAMINE HCL 100 MG TABLET (FP) PO SCH (22:40)
[2021-11-01] MEDS: hydrOXYzine PAMOATE 25 MG CAPSULE (FP) PO SCH ×5 (05:58→22:35)
[2021-11-01] MEDS ORDERED: methaDONE HCL 10 MG TABLET (FOR DETOX USE ONLY) ONE (09:52)
[2021-11-01] MEDS: PRENATAL VITAMINS W/ FOLIC ACID TABLET (FP) PO SCH (10:24)
[2021-11-01] MEDS: MELATONIN 5 MG TABLETS PO SCH (22:34)
[2021-11-01] MEDS: THIAMINE HCL 100 MG TABLET (FP) PO SCH (22:35)
[2021-11-02] MEDS: hydrOXYzine PAMOATE 25 MG CAPSULE (FP) PO SCH ×5 (07:11→22:19)
[2021-11-02] MEDS ORDERED: methaDONE HCL 10 MG TABLET (FOR DETOX USE ONLY) PO ONE (10:00)
[2021-11-02] MEDS: PRENATAL VITAMINS W/ FOLIC ACID TABLET (FP) PO SCH (10:43)
[2021-11-02] MEDS: METHOCARBAMOL 500 MG TABLET PO PRN ×2 (10:43→22:19)
[2021-11-02] MEDS: THIAMINE HCL 100 MG TABLET (FP) PO SCH (22:19)
[2021-11-02] MEDS: MELATONIN 5 MG TABLETS PO SCH (22:20)
[2021-11-03] MEDS: hydrOXYzine PAMOATE 25 MG CAPSULE (FP) PO SCH ×2 (06:03→11:29)
[2021-11-03 07:32] VITALS: TEMP 97.3
[2021-11-03 10:17] VITALS: BP 133/90; PULSE 70
[2021-11-03] MEDS: PRENATAL VITAMINS W/ FOLIC ACID TABLET (FP) PO SCH (11:29)
== END 2021-11-03 11:36 | disposition home or self-care (01) | DRG 773 ==
LOC: YASAS 17:30 → Y6N 21:19
PROVIDERS: ADMIT Allergy & Immunology; ATTEND Allergy & Immunology
PROC: HZ2ZZZZ Detoxification Services for Substance Abuse Treatment (ICD-10-PCS; principal; 2021-10-29)
DX: F11.23 Opioid dependence with withdrawal (principal); F14.20 Cocaine dependence, uncomplicated; F17.290 Nicotine dependence, other tobacco product, uncomplicated; F19.24 Other psychoactive substance dependence with psychoactive substance-induced mood disorder; Z88.8 Allergy status to other drugs, medicaments and biological substances; Z86.19 Personal history of other infectious and parasitic diseases; Z56.0 Unemployment, unspecified
CPT/HCPCS: 36415; 80053; 85027; 86593; 86780; C9803; J0735; U0003; U0005

== ENCOUNTER 2022-08-05 14:48 | Inpatient (IN) | payer OTHER ==
[2022-08-05] MEDS: MELATONIN 5 MG TABLETS PO SCH (11:45)
[2022-08-05] MEDS: THIAMINE HCL 100 MG TABLET (FP) PO SCH (11:45)
[2022-08-05 17:57] VITALS: BMI 25.6
[2022-08-05] MEDS ORDERED: ONDANSETRON *ODT* 4 MG TABLET SL PRN (20:36)
[2022-08-05] MEDS ORDERED: ACETAMINOPHEN 325 MG TABLET (FP) PO PRN ×2 (20:36)
[2022-08-05] MEDS ORDERED: NALOXONE HCL (KLOXXADO) 8 MG SPRAY NS PRN (20:36)
[2022-08-05] MEDS ORDERED: DICYCLOMINE HCL 10 MG CAPSULE PO PRN (20:36)
[2022-08-05] MEDS ORDERED: methaDONE HCL 10 MG TABLET (FOR DETOX USE ONLY) PO ONE (20:36)
[2022-08-05] MEDS ORDERED: cloNIDine HCL 0.1 MG TABLET PO PRN (20:36)
[2022-08-05] MEDS ORDERED: MAGNESIUM CITRATE 300 ML BOTTLE PO PRN (20:36)
[2022-08-05] MEDS ORDERED: MAG HYDROX/AL HYDROX/SIMETH 30 ML UNIT-DOSE CUP PO PRN (20:36)
[2022-08-05] MEDS ORDERED: NICOTINE POLACRILEX 2 MG GUM BUC PRN (20:36)
[2022-08-05] MEDS ORDERED: IBUPROFEN 600 MG TABLET (FP) PO PRN (20:36)
[2022-08-05] MEDS ORDERED: LOPERAMIDE HCL 2 MG CAPSULE PO PRN (20:36)
[2022-08-05] MEDS ORDERED: BENZOCAINE/MENTHOL (CHLORASEPTIC ) LOZENGE MM PRN (20:36)
[2022-08-05] MEDS ORDERED: MAGNESIUM HYDROX 2400MG/30ML ORAL SUSPENSION 30 ML CUP PO PRN (20:36)
[2022-08-05] MEDS ORDERED: BISMUTH SUBSALICYLATE 524 MG/30 ML PO PRN (20:36)
[2022-08-06] MEDS ORDERED: methaDONE HCL 10 MG TABLET (FOR DETOX USE ONLY) ONE (00:21)
[2022-08-06] MEDS: METHOCARBAMOL 500 MG TABLET PO PRN ×2 (10:00→17:55)
[2022-08-06] MEDS: PRENATAL VITAMINS W/ FOLIC ACID TABLET (FP) PO SCH (10:01)
[2022-08-06] MEDS: NICOTINE 14 MG/24 HOURS TOPICAL PATCH TD SCH (10:01)
[2022-08-06 10:56] LABS: HEMATOCRIT 43.8 % (35.4-49); HEMOGLOBIN 14.7 GM/dL (11.7-16.9); MCH 28.4 pg (25.7-33.7); MCHC 33.5 g/dl (32.0-35.9); MEAN CELL VOLUME 84.8 fl (80-96); MEAN PLT VOLUME 9.7 fl (7.5-11.1); PLATELET COUNT 237 10^3/uL (134-434); RBC 5.17 M/mm3 (4.00-5.60); WHITE BLOOD COUNT 6.7 K/mm3 (4.0-10.0)
[2022-08-06 11:05] LABS: ALBUMIN 3.2 g/dl (3.4-5.0); BLOOD UREA NITROGEN 14.4 mg/dL (7-18); CALCIUM 8.5 mg/dL (8.5-10.1)
[2022-08-06 11:08] LABS: CREATININE 0.9 mg/dL (0.55-1.3)
[2022-08-06 11:10] LABS: BILIRUBIN,TOTAL 0.3 mg/dL (0.2-1); TOT PROT 6.6 g/dl (6.4-8.2)
[2022-08-06] MEDS: THIAMINE HCL 100 MG TABLET (FP) PO SCH (22:29)
[2022-08-06] MEDS: MELATONIN 5 MG TABLETS PO SCH (22:30)
[2022-08-07] MEDS ORDERED: methaDONE HCL 10 MG TABLET (FOR DETOX USE ONLY) PO ONE (10:00)
[2022-08-07] MEDS: NICOTINE 14 MG/24 HOURS TOPICAL PATCH TD SCH (10:18)
[2022-08-07] MEDS: PRENATAL VITAMINS W/ FOLIC ACID TABLET (FP) PO SCH (10:18)
[2022-08-07] MEDS: METHOCARBAMOL 500 MG TABLET PO PRN (18:11)
[2022-08-07] MEDS: MELATONIN 5 MG TABLETS PO SCH (22:29)
[2022-08-07] MEDS: THIAMINE HCL 100 MG TABLET (FP) PO SCH (22:29)
[2022-08-07] MEDS: IBUPROFEN 400 MG TABLET (FP) PO PRN (22:29)
[2022-08-08] MEDS: PRENATAL VITAMINS W/ FOLIC ACID TABLET (FP) PO SCH (10:06)
[2022-08-08] MEDS: METHOCARBAMOL 500 MG TABLET PO PRN ×2 (10:06→22:37)
[2022-08-08] MEDS: NICOTINE 14 MG/24 HOURS TOPICAL PATCH TD SCH (10:08)
[2022-08-08] MEDS: MELATONIN 5 MG TABLETS PO SCH (22:37)
[2022-08-08] MEDS: THIAMINE HCL 100 MG TABLET (FP) PO SCH (22:37)
[2022-08-08] MEDS: IBUPROFEN 400 MG TABLET (FP) PO PRN (22:37)
[2022-08-09] MEDS ORDERED: methaDONE HCL 10 MG TABLET (FOR DETOX USE ONLY) PO ONE (10:00)
[2022-08-09] MEDS: PRENATAL VITAMINS W/ FOLIC ACID TABLET (FP) PO SCH (10:57)
[2022-08-09] MEDS: NICOTINE 14 MG/24 HOURS TOPICAL PATCH TD SCH (10:57)
[2022-08-09 22:21] VITALS: BP 134/79; PULSE 64; RESP 18; TEMP 98.2
[2022-08-09] MEDS: THIAMINE HCL 100 MG TABLET (FP) PO SCH (22:21)
[2022-08-09] MEDS: MELATONIN 5 MG TABLETS PO SCH (22:21)
[2022-08-09] MEDS: METHOCARBAMOL 500 MG TABLET PO PRN (22:22)
[2022-08-10] MEDS: METHOCARBAMOL 500 MG TABLET PO PRN (05:33)
== END 2022-08-10 07:50 | disposition home or self-care (01) | DRG 773 ==
LOC: YASAS 14:48 → Y3N 22:59
PROVIDERS: ADMIT Allergy & Immunology; ATTEND Surgery
PROC: HZ2ZZZZ Detoxification Services for Substance Abuse Treatment (ICD-10-PCS; principal; 2022-08-05)
DX: F11.23 Opioid dependence with withdrawal (principal); F14.20 Cocaine dependence, uncomplicated; F17.210 Nicotine dependence, cigarettes, uncomplicated; L02.413 Cutaneous abscess of right upper limb; Z86.19 Personal history of other infectious and parasitic diseases; Z88.8 Allergy status to other drugs, medicaments and biological substances
CPT/HCPCS: 36415; 80053; 85027; 86593; 86780; 87811; C9803-CS; U0003; U0005

== ENCOUNTER 2024-10-02 22:22 | Inpatient (IN) | payer OTHER ==
[2024-10-02 23:15] VITALS: BMI 20.7
[2024-10-02] MEDS ORDERED: BISMUTH SUBSALICYLATE 524 MG/30 ML PO PRN (23:16)
[2024-10-02] MEDS ORDERED: NALOXONE (NYS OPIOID OVERDOSE PROGRAM) 4 MG/0.1 ML SPRAY NS PRN (23:16)
[2024-10-02] MEDS ORDERED: BENZONATATE 200 MG CAPSULE PO PRN (23:16)
[2024-10-02] MEDS ORDERED: MAGNESIUM HYDROX 2400MG/30ML ORAL SUSPENSION 30 ML CUP PO PRN (23:16)
[2024-10-02] MEDS ORDERED: NALOXONE (NARCAN) HCL 4 MG/0.1 ML SPRAY NS PRN (23:16)
[2024-10-02] MEDS ORDERED: NICOTINE POLACRILEX 2 MG GUM BUC PRN (23:16)
[2024-10-02] MEDS ORDERED: IBUPROFEN 400 MG TABLET (FP) PO PRN (23:16)
[2024-10-02] MEDS ORDERED: DICYCLOMINE HCL 10 MG CAPSULE PO PRN (23:16)
[2024-10-02] MEDS ORDERED: ONDANSETRON *ODT* 4 MG TABLET SL PRN (23:16)
[2024-10-02] MEDS ORDERED: NICOTINE POLACRILEX 2 MG LOZENGE BC PRN (23:16)
[2024-10-02] MEDS ORDERED: ACETAMINOPHEN 325 MG TABLET (FP) PO PRN (23:16)
[2024-10-02] MEDS ORDERED: P-EPHED 60MG/TRIPROLIDI 2.5MG TABLET PO PRN (23:16)
[2024-10-02] MEDS ORDERED: POLYETHYLENE GLYCOL (HEALTHYLAX) 3350 17 GM PACKET PO PRN (23:16)
[2024-10-02] MEDS ORDERED: BENZOCAINE/MENTHOL (CHLORASEPTIC ) LOZENGE MM PRN (23:16)
[2024-10-02] MEDS ORDERED: MAG HYDROX/AL HYDROX/SIMETH 30 ML UNIT-DOSE CUP PO PRN (23:16)
[2024-10-02] MEDS ORDERED: guaiFENesin 600 MG TABLET.ER (FP) PO PRN (23:16)
[2024-10-02] MEDS: CLINDAMYCIN HCL 150 MG CAPSULE (FP) PO SCH (23:55)
[2024-10-03] MEDS: PRENATAL VITAMINS W/ FOLIC ACID TABLET (FP) PO SCH (09:56)
[2024-10-03] MEDS: methaDONE HCL 10 MG TABLET (FOR DETOX USE ONLY) PO ONE (10:07)
[2024-10-03] MEDS: IBUPROFEN 600 MG TABLET (FP) PO PRN (11:17)
[2024-10-03] MEDS: diazePAM 5 MG TABLET PO PRN (21:48)
[2024-10-03] MEDS: THIAMINE 100 MG TABLET PO SCH (21:50)
[2024-10-03] MEDS: MELATONIN 5 MG TABLETS PO SCH (21:50)
[2024-10-04] MEDS: cloNIDine HCL 0.1 MG TABLET PO PRN (02:59)
[2024-10-04] MEDS: diazePAM 5 MG TABLET PO PRN (12:30)
[2024-10-04] MEDS: hydrOXYzine PAMOATE 25 MG CAPSULE (FP) PO PRN (17:39)
[2024-10-05] MEDS: methaDONE HCL 10 MG TABLET (FOR DETOX USE ONLY) PO ONE (10:02)
[2024-10-05 12:58] LABS: HEMATOCRIT 38.5 % (35.4-49); HEMOGLOBIN 13.3 GM/dL (11.7-16.9); MCH 28.3 pg (25.7-33.7); MCHC 34.6 g/dl (32.0-35.9); MEAN CELL VOLUME 81.9 fl (80-96); MEAN PLT VOLUME 8.7 fl (7.5-11.1); PLATELET COUNT 232 10^3/uL (134-434); RDW 13.9 % (11.9-15.9); WHITE BLOOD COUNT 3.3 K/mm3 (4.0-10.0)
[2024-10-05 13:04] LABS: POTASSIUM 4.2 mmol/L (3.5-5.1)
[2024-10-05 14:00] LABS: CALCIUM 9.2 mg/dL (8.5-10.1)
[2024-10-05 14:01] LABS: ALBUMIN 3.3 g/dl (3.4-5.0); BLOOD UREA NITROGEN 9.4 mg/dL (7-18)
[2024-10-05 14:05] LABS: CREATININE 0.6 mg/dL (0.55-1.3)
[2024-10-05 14:06] LABS: BILIRUBIN,TOTAL 0.3 mg/dL (0.2-1); TOT PROT 7.8 g/dl (6.4-8.2)
[2024-10-05] MEDS: METHOCARBAMOL 500 MG TABLET PO PRN (22:07)
[2024-10-06 18:22] LABS: HIV INTERPRETATION NEGATIVE (NEGATIVE)
[2024-10-06] MEDS: LOPERAMIDE HCL 2 MG CAPSULE PO PRN (19:09)
[2024-10-07] MEDS: methaDONE HCL 10 MG TABLET (FOR DETOX USE ONLY) PO ONE (10:18)
[2024-10-07 14:31] LABS: HEMATOCRIT 39.8 % (35.4-49); HEMOGLOBIN 13.2 GM/dL (11.7-16.9); MCH 27.5 pg (25.7-33.7); MCHC 33.1 g/dl (32.0-35.9); MEAN CELL VOLUME 83.2 fl (80-96); MEAN PLT VOLUME 9.5 fl (7.5-11.1); PLATELET COUNT 232 10^3/uL (134-434); RBC 4.78 M/mm3 (4.00-5.60); WHITE BLOOD COUNT 5.1 K/mm3 (4.0-10.0)
[2024-10-08 09:10] VITALS: BP 119/75; PULSE 82; RESP 17; TEMP 97.6
== END 2024-10-08 09:43 | disposition home or self-care (01) | DRG 773 ==
LOC: YASAS 22:22 → Y6N 23:16
PROVIDERS: ADMIT Allergy & Immunology; ATTEND Surgery
PROC: HZ2ZZZZ Detoxification Services for Substance Abuse Treatment (ICD-10-PCS; principal; 2024-10-02)
DX: F11.23 Opioid dependence with withdrawal (principal); F14.20 Cocaine dependence, uncomplicated; F13.10 Sedative, hypnotic or anxiolytic abuse, uncomplicated; F17.210 Nicotine dependence, cigarettes, uncomplicated; D72.819 Decreased white blood cell count, unspecified; L02.414 Cutaneous abscess of left upper limb; L02.413 Cutaneous abscess of right upper limb; Z86.19 Personal history of other infectious and parasitic diseases; Z59.02 Unsheltered homelessness; Z56.0 Unemployment, unspecified; Z88.8 Allergy status to other drugs, medicaments and biological substances
CPT/HCPCS: 36415; 80053; 80305; 80307; 85027; 86593; 86780; 86803; 87389; 87522; 93005; 93010